=== PATIENT | male | born 1930 | race Two or more races ===

== ENCOUNTER 2016-11-04 10:01 | Inpatient (IN) | payer MEDICARE, MEDICAID ==
[~2016-11-04] VITALS: Ht 172.7 cm; Wt 64.9 kg
[2016-11-04] MEDS ORDERED: Albuterol ud Inhalation HHN ONE (10:15)
[2016-11-04] MEDS ORDERED: Ipratropium 0.02% Inh Soln 2.5ml UD HHN ONE (10:15)
--- NOTE | 2016-11-04 10:19 | Emergency Room Report ---
History of Present Illness General Chief Complaint: Dyspnea/Respdistress Source: Medical Record, EMS Present Illness HPI Patient transferred from half-way, [facility], no reported hypoxia, shortness of breath,. The patient's primary doctor is Dr. elroy martinez. He was admitted to [facility] on October 23 this year with a diagnosis of pneumonia , CK D. stage III, chronic respiratory failure requiring oxygen, pulmonary fibrosis, dementia, descending aortic aneurysm, cardiomegaly. The patient requires oxygen, he was transferred on a nonrebreather. He sat slow in the ER initially without oxygen in the middle 80s on 4 L nasal cannula he is saturating at 100%. Per the paperwork the patient is a full code. The patient has dementia and does not answer questions appropriately nor is there any possibility of review systems. According to orders that were sent with [facility]. According to the paperwork, the patient is on a cholesterol medication a thyroid medication as well as dementia medication and amoxicillin and is anthramycin. Both of which have been completed as a course at the beginning of this month. Allergies: Coded Allergies: No Known Allergies (Unverified , 11/04/16) Patient History Limited by: medical condition - demented Past Medical History: see triage record, unable to obtain, HTN, pneumonia, dementia, renal disease Past Surgical History: unable to obtain Pertinent Family History: unable to obtain Social History: Denies: alcohol use, drug use, smoking Immunizations: UTD Reviewed Nursing Documentation: PMH: Agreed Nursing Documentation-[facility] Hx Cardiac Problems: Yes - Cardiomegally, pulmonary fibrosis History Of Psychiatric Problem: Yes - Dementia Review of Systems All Other Systems: limited - patient to demented for ROS Physical Exam Vital Signs Date Time Temp Pulse Resp B/P Pulse Ox O2 Delivery O2 Flow Rate FiO2 11/04/16 09:54 94 18 110/67 98 Non-Rebreather 10.0 Sp02 EP Interpretation: reviewed, abnormal - hypoxia without o2 supplementation General Appearance: alert, moderate distress, cachetic Head: atraumatic ENT: normal pharynx, dry mucus membranes Neck: full range of motion, supple, supple/symm/no masses Respiratory: decreased breath sounds, accessory muscle use, other - distant breath sounds Cardiovascular #1: regular rate, rhythm, no edema, normal capillary refill Gastrointestinal: non tender, soft, no mass Rectal: deferred Genitourinary: no CVA tenderness Neurologic: alert, responsive Medical Decision Making Diagnostic Impression: Primary Impression: Respiratory distress Additional Impressions: Dyspnea Acute CHF (congestive heart failure) Pneumonia Hypoxia ER Course Patient brought for evaluation of respiratory change, at baseline this is a very poor historian as well as has poor lung function, recent pneumonia, interstitial lung disease, possible CHF. Initiating oxygen therapy, monitor, chest x-ray as well as antibiotics in the ER. Overall is possible this patient is near his baseline is just oxygen dependent as often patient's have issues of oxygen delivery and nursing facilities. We'll run-through basic labs, gas, findings and determine his full need for therapy. Patient remains stable on 4 L nasal cannula, and blood work does demonstrate elevated BNP and chest x-ray suggestive of CHF exacerbation. He is still very tenuous. I believe that the patient would benefit from IV diuresis as well as treatment with antibiotics as infection cannot be ruled out on chest x-ray. I spoke with Dr. Cornelius who agrees with admission. I also spoke with the family who understand our plan of care. According to the family they were unaware of long or heart problems prior to the patient's initial mission and outside hospital last month. IV diuretics as well as IV anabiotic some were initiated in the ER. Laboratory Tests Test 11/04/16 10:00 11/04/16 10:55 White Blood Count 9.7 K/UL (4.8-10.8) Red Blood Count 4.46 M/UL (4.70-6.10) L Hemoglobin 14.3 G/DL (14.2-18.0) Hematocrit 41.5 % (42.0-52.0) L Mean Corpuscular Volume 93 FL (80-99) Mean Corpuscular Hemoglobin 32.1 PG (27.0-31.0) H Mean Corpuscular Hemoglobin Concent 34.5 G/DL (32.0-36.0) Red Cell Distribution Width 13.1 % (11.6-14.8) Platelet Count 415 K/UL (150-450) Mean Platelet Volume 7.5 FL (6.5-10.1) Neutrophils (%) (Auto) 55.3 % (45.0-75.0) Lymphocytes (%) (Auto) 22.6 % (20.0-45.0) Monocytes (%) (Auto) 9.8 % (1.0-10.0) Eosinophils (%) (Auto) 9.7 % (0.0-3.0) H Basophils (%) (Auto) 2.6 % (0.0-2.0) H Prothrombin Time 12.6 SEC (9.30-11.50) H Prothromb Time International Ratio 1.2 (0.9-1.1) H Activated Partial Thromboplast Time 26 SEC (23-33) Sodium Level 136 mEQ/L (135-145) Potassium Level 4.5 mEQ/L (3.4-4.9) Chloride Level 94 mEQ/L (98-107) L Carbon Dioxide Level 28 mEQ/L (20-30) Anion Gap 14 (5-15) Blood Urea Nitrogen 14 mg/dL (7-23) Creatinine 1.2 mg/dL (0.7-1.2) Estimat Glomerular Filtration Rate mL/min (>60) Glucose Level 108 mg/dL (74-106) H Lactic Acid Level 1.70 mmol/L (0.66-2.22) Calcium Level 9.4 mg/dL (8.6-10.2) Total Bilirubin 0.6 mg/dL (0.0-1.2) Direct Bilirubin 0.2 mg/dL (0.1-0.3) Aspartate Amino Transf (AST/SGOT) 57 U/L (5-40) H Alanine Aminotransferase (ALT/SGPT) 52 U/L (3-41) H Alkaline Phosphatase 148 U/L (40-129) H Troponin I < 0.30 ng/mL (<=0.30) Pro-B-Type Natriuretic Peptide 665 pg/mL (0-450) H Total Protein 7.6 g/dL (6.6-8.7) Albumin 3.3 g/dL (3.5-5.2) L Globulin 4.3 g/dL Albumin/Globulin Ratio 0.7 (1.0-2.7) L Urine Color Yellow Urine Appearance Clear Urine pH 5 (4.5-8.0) Urine Specific [place] 1.020 (1.005-1.035) Urine Protein 2+ (NEGATIVE) H Urine Glucose (UA) Negative (NEGATIVE) Urine Ketones 1+ (NEGATIVE) H Urine Occult Blood 1+ (NEGATIVE) H Urine Nitrite Negative (NEGATIVE) Urine Bilirubin Negative (NEGATIVE) Urine Urobilinogen Normal MG/DL (0.0-1.0) Urine Leukocyte Esterase Negative (NEGATIVE) Urine RBC 0-2 /HPF (0 - 0) H Urine WBC 0-2 /HPF (0 - 0) Urine Squamous Epithelial Cells Occasional /LPF Urine Bacteria Few /HPF (NONE) Urine Mucus Few /LPF (NONE/OCC) H EKG Diagnostic Results EKG Time: 10:30 EP Interpretation: rate 84 Rate: normal Rhythm: NSR ST Segments: no acute changes Rhythm Strip Diag. Results Rhythm Strip Time: 10:52 EP Interpretation: yes Rate: 88 Rhythm: NSR, no PVC's, no ectopy Chest X-Ray Diagnostic Results Time: 11:29 EP Interpretation: No Findings: other - limited view, suggestive heart faailure, bilateral infiltrates Reevaluation Time: 12:59 Last Vital Signs Date Time Temp Pulse Resp B/P Pulse Ox O2 Delivery O2 Flow Rate FiO2 11/04/17 09:54 94 18 110/67 98 Non-Rebreather 10.0 Status: improved Disposition: ADMITTED INPATIENT Admit Decision Time: 12:59 Condition: Serious Cain Jackman MD Nov 04, 2016 10:19
[2016-11-04 10:32] LABS: BASOPHILS % (AUTO) 2.6 % (0.0-2.0); EOSINOPHILS % (AUTO) 9.7 % (0.0-3.0); LYMPHOCYTES % (AUTO) 22.6 % (20.0-45.0); MEAN CORPUSCULAR HEMOGLOBIN 32.1 PG (27.0-31.0); MEAN CORPUSCULAR HGB CONC 34.5 G/DL (32.0-36.0); MEAN CORPUSCULAR VOLUME 93 FL (80-99); MEAN PLATELET VOLUME 7.5 FL (6.5-10.1); MONOCYTES % (AUTO) 9.8 % (1.0-10.0); NEUTROPHILS % (AUTO) 55.3 % (45.0-75.0); PLATELET COUNT 415 K/UL (150-450); RED BLOOD COUNT 4.46 M/UL (4.70-6.10); RED CELL DISTRIBUTION WIDTH 13.1 % (11.6-14.8); WHITE BLOOD COUNT 9.7 K/UL (4.8-10.8)
[2016-11-04 10:42] VITALS: BP 116/73
[2016-11-04 10:48] LABS: INR 1.2 (0.9-1.1); PROTHROMBIN TIME 12.6 SEC (9.30-11.50)
[2016-11-04 10:49] LABS: ALANINE AMINOTRANSFERASE 52 U/L (3-41); ALBUMIN/GLOBULIN RATIO 0.7 (1.0-2.7); ANION GAP 14 (5-15); ASPARTATE AMINO TRANSFERASE 57 U/L (5-40); BILIRUBIN,DIRECT 0.2 mg/dL (0.1-0.3); CALCIUM 9.4 mg/dL (8.6-10.2); CARBON DIOXIDE 28 mEQ/L (20-30); CHLORIDE 94 mEQ/L (98-107); CREATININE 1.2 mg/dL (0.7-1.2); HEMOLYSIS 3; POTASSIUM 4.5 mEQ/L (3.4-4.9); SODIUM 136 mEQ/L (135-145); TOTAL PROTEIN 7.6 g/dL (6.6-8.7)
[2016-11-04 10:50] LABS: TROPONIN I < 0.30 ng/mL (<=0.30)
[2016-11-04 11:04] LABS: APPEARANCE,URINE CLEAR; KETONES,URINE 1+ (NEGATIVE); LEUKOCYTE ESTERASE ,URINE NEGATIVE (NEGATIVE); NITRITE,URINE NEGATIVE (NEGATIVE); PH,URINE 5 (4.5-8.0); PROTEIN,URINE 2+ (NEGATIVE); UROBILINOGEN,URINE NORMAL MG/DL (0.0-1.0)
[2016-11-04 11:20] LABS: BACTERIA,URINE FEW /HPF; MUCUS,URINE FEW /LPF (NONE/OCC); RBC,URINE 0-2 /HPF (0 - 0); SQUAMOUS EPITHELIAL CELL,UR OCCASIONAL /LPF (NONE/OCC); WBC,URINE 0-2 /HPF (0 - 0)
--- NOTE | 2016-11-04 11:34 | Diagnostic Imaging Report ---
Indications: Shortness of breath, infection Technique: Portable AP chest Findings: Comparison: None Suboptimal inspiration limits evaluation. Cardiac silhouette obscured. Diffuse bilateral interstitial infiltrates are present. This obscures pulmonary vasculature. Linear densities are suggested in both lung bases. No definite pleural abnormality. Aortic arch calcified. IMPRESSION: Limited exam demonstrating findings most suggestive of congestive heart failure Suggestion of superimposed subsegmental atelectasis both lung bases Aortosclerosis
[2016-11-04] MEDS ORDERED: NAMENDA5 MG ORAL (11:38)
[2016-11-04] MEDS ORDERED: LEVOTHYROXINE88 MCG ORAL (11:38)
[2016-11-04] MEDS ORDERED: SIMVASTATIN5 MG ORAL (11:38)
[2016-11-04 14:37] VITALS: BP 104/56
[2016-11-04 16:16] VITALS: BP 145/85
--- NOTE | 2016-11-04 17:09 | History and Physical ---
History of Present Illness General Date patient seen: Nov 04, 2016 Reason for Hospitalization: Dyspnea/Respdistress Present Illness HPI 86 year old male with hx of recent pneumonia, CK D. stage III, chronic respiratory failure requiring oxygen, pulmonary fibrosis, dementia, descending aortic aneurysm, cardiomegaly, was transferred on a nonrebreather with CC of Dyspnea and persistent cough and desaturation. There is no report of fever. Pt resides in a [facility] for a few weeks after his discharge from [facility]. Allergies: Coded Allergies: No Known Allergies (Unverified , 11/04/16) Medication History Scheduled Levothyroxine Sodium* (Levothyroxine Sodium*), 88 MCG ORAL DAILY, (Reported) Memantine Hcl* (Namenda*), 5 MG ORAL DAILY, (Reported) Simvastatin (Zocor), 5 MG ORAL BEDTIME, (Reported) Patient History Healthcare decision maker Resuscitation status Advanced Directive on File Past Medical/Surgical History Past Medical/Surgical History: (1) COPD (chronic obstructive pulmonary disease) (2) Advanced dementia (3) Aortic aneurysm Review of Systems Constitutional: Reports: weakness Respiratory: Reports: shortness of breath, sputum Physical Exam General Appearance: WD/WN Lines, tubes and drains: peripheral HEENT: normocephalic, anicteric Neck: non-tender, normal alignment Respiratory/Chest: chest wall non-tender, lungs clear Cardiovascular/Chest: normal rate Abdomen: normal bowel sounds Genitourinary/Rectal: normal genital exam Extremities: normal range of motion Last 24 Hour Vital Signs Date Time Temp Pulse Resp B/P Pulse Ox O2 Delivery O2 Flow Rate FiO2 11/04/16 16:16 98.0 94 18 145/85 Nasal Cannula 2.0 82 11/04/16 15:32 98.2 98 25 104/56 98 Nasal Cannula 2.0 28 11/04/16 14:37 98.2 98 25 104/56 98 Nasal Cannula 2.0 11/04/16 10:42 88 28 Nasal Cannula 2.0 11/04/16 10:42 98 28 116/73 100 Nasal Cannula 2.0 28 11/04/16 10:31 88 28 100 Nasal Cannula 2.0 28 11/04/16 10:20 79 27 100 Nasal Cannula 2.0 28 11/04/16 10:20 28 11/04/16 10:20 79 27 Nasal Cannula 2.0 28 11/04/16 09:54 94 18 110/67 98 Non-Rebreather 10.0 Laboratory Tests Test 11/04/16 10:00 11/04/16 10:55 White Blood Count 9.7 K/UL (4.8-10.8) Red Blood Count 4.46 M/UL (4.70-6.10) L Hemoglobin 14.3 G/DL (14.2-18.0) Hematocrit 41.5 % (42.0-52.0) L Mean Corpuscular Volume 93 FL (80-99) Mean Corpuscular Hemoglobin 32.1 PG (27.0-31.0) H Mean Corpuscular Hemoglobin Concent 34.5 G/DL (32.0-36.0) Red Cell Distribution Width 13.1 % (11.6-14.8) Platelet Count 415 K/UL (150-450) Mean Platelet Volume 7.5 FL (6.5-10.1) Neutrophils (%) (Auto) 55.3 % (45.0-75.0) Lymphocytes (%) (Auto) 22.6 % (20.0-45.0) Monocytes (%) (Auto) 9.8 % (1.0-10.0) Eosinophils (%) (Auto) 9.7 % (0.0-3.0) H Basophils (%) (Auto) 2.6 % (0.0-2.0) H Prothrombin Time 12.6 SEC (9.30-11.50) H Prothromb Time International Ratio 1.2 (0.9-1.1) H Activated Partial Thromboplast Time 26 SEC (23-33) Sodium Level 136 mEQ/L (135-145) Potassium Level 4.5 mEQ/L (3.4-4.9) Chloride Level 94 mEQ/L (98-107) L Carbon Dioxide Level 28 mEQ/L (20-30) Anion Gap 14 (5-15) Blood Urea Nitrogen 14 mg/dL (7-23) Creatinine 1.2 mg/dL (0.7-1.2) Estimat Glomerular Filtration Rate mL/min (>60) Glucose Level 108 mg/dL (74-106) H Lactic Acid Level 1.70 mmol/L (0.66-2.22) Calcium Level 9.4 mg/dL (8.6-10.2) Total Bilirubin 0.6 mg/dL (0.0-1.2) Direct Bilirubin 0.2 mg/dL (0.1-0.3) Aspartate Amino Transf (AST/SGOT) 57 U/L (5-40) H Alanine Aminotransferase (ALT/SGPT) 52 U/L (3-41) H Alkaline Phosphatase 148 U/L (40-129) H Troponin I < 0.30 ng/mL (<=0.30) Pro-B-Type Natriuretic Peptide 665 pg/mL (0-450) H Total Protein 7.6 g/dL (6.6-8.7) Albumin 3.3 g/dL (3.5-5.2) L Globulin 4.3 g/dL Albumin/Globulin Ratio 0.7 (1.0-2.7) L Urine Color Yellow Urine Appearance Clear Urine pH 5 (4.5-8.0) Urine Specific [place] 1.020 (1.005-1.035) Urine Protein 2+ (NEGATIVE) H Urine Glucose (UA) Negative (NEGATIVE) Urine Ketones 1+ (NEGATIVE) H Urine Occult Blood 1+ (NEGATIVE) H Urine Nitrite Negative (NEGATIVE) Urine Bilirubin Negative (NEGATIVE) Urine Urobilinogen Normal MG/DL (0.0-1.0) Urine Leukocyte Esterase Negative (NEGATIVE) Urine RBC 0-2 /HPF (0 - 0) H Urine WBC 0-2 /HPF (0 - 0) Urine Squamous Epithelial Cells Occasional /LPF Urine Bacteria Few /HPF (NONE) Urine Mucus Few /LPF (NONE/OCC) H Height (Feet): 5 Height (Inches): 8.00 Weight (Pounds): 160 Medications Current Medications Medications (Trade) Dose Ordered Sig/Jackie Route PRN Reason Start Time Stop Time Status Last Admin Dose Admin Acetaminophen (Tylenol) 650 mg Q4H PRN ORAL Fever 11/04/16 17:15 12/04/16 17:14 UNV Albuterol/ Ipratropium 3 ml 3 ml EVERY 4 HOURS PRN HHN Shortness of Breath 11/04/16 17:15 11/09/16 17:14 UNV Dextrose (Dextrose 50%) STAT PRN IV Hypoglycemia 11/04/16 17:15 12/04/16 17:14 UNV Furosemide (Lasix) 40 mg EVERY 8 HOURS IV 11/04/16 22:00 12/04/16 21:59 UNV Heparin Sodium (Porcine) (Heparin 5000 units/ml) 5,000 units EVERY 12 HOURS SUBQ 11/04/16 21:00 12/04/16 20:59 UNV Levofloxacin (Levaquin) 100 ml @ 100 mls/hr Q24H IVPB 11/04/16 17:15 11/11/16 17:14 UNV Levothyroxine Sodium (Synthroid) 88 mcg DAILY ORAL 11/05/16 09:00 12/05/16 08:59 UNV Memantine (Namenda) 5 mg DAILY ORAL 11/05/16 09:00 12/05/16 08:59 UNV Ondansetron HCl (Zofran) 4 mg Q6H PRN IVP Nausea & Vomiting 11/04/16 17:15 12/04/16 17:14 UNV Ondansetron HCl (Zofran) 4 mg Q6H PRN IVP Nausea & Vomiting 11/04/16 17:15 12/04/16 17:14 UNV Polyethylene Glycol (Miralax) 17 gm DAILYPRN PRN ORAL Constipation 11/04/16 17:15 12/04/16 17:14 UNV Promethazine HCl/ Codeine (Phenergan with Codeine) 5 ml Q4H PRN ORAL For Cough 11/04/16 17:15 12/04/16 17:14 UNV Temazepam (Restoril) 15 mg HSPRN PRN ORAL Insomnia 11/04/16 17:15 11/11/16 17:14 UNV Assessment/Plan Problem List: (1) Pneumonia ICD Codes: J18.9 - Pneumonia, unspecified organism SNOMED: 992169075, 49143805 (2) Acute CHF (congestive heart failure) ICD Codes: I50.9 - Heart failure, unspecified SNOMED: 31227392, 98479160 (3) Respiratory distress ICD Codes: R06.00 - Dyspnea, unspecified SNOMED: 766568544 (4) Hypoxia ICD Codes: R09.02 - Hypoxemia SNOMED: 118553855, 52374956 (5) Advanced dementia ICD Codes: F03.90 - Unspecified dementia without behavioral disturbance SNOMED: 92472492 (6) Aortic aneurysm ICD Codes: I71.9 - Aortic aneurysm of unspecified site, without rupture SNOMED: 55726242 (7) COPD (chronic obstructive pulmonary disease) ICD Codes: J44.9 - Chronic obstructive pulmonary disease, unspecified SNOMED: 33318280 Assessment/Plan diuretics respiratory treatment echo cardio evaluation check sputum IV antibiotics VERO COLLADO Nov 04, 2016 17:09
[2016-11-04] MEDS ORDERED: Miralax 17gm pkt ORAL PRN (17:15)
[2016-11-04] MEDS ORDERED: Promethazine/Codeine 5ml UD ORAL PRN (17:15)
[2016-11-04] MEDS ORDERED: DuoNeb 0.5-3(2.5)mg/3ml neb HHN PRN (17:15)
--- NOTE | 2016-11-04 17:34 | Consultation ---
Consult Note Consult Note ID CONSULT: Dict# [id number] Assessment/Plan ASSESSMENT: 86 y/o male with: // Acute on chronic respiratory failure r/o HCAP, CHF - SCx pending - CXR: most suggestive of congestive heart failure Suggestion of superimposed subsegmental BLL atelectasis - elevated BNP - h/o O2-dependent pulmonary, fibrosis // Elevated LFTs r/o hepatobiliary disease // Afebrile without leukocytosis // CKD3 // Dementia // NKDA // Full Code PLAN: - continue empiric levaquin d# 1 for now - check influenza, legionella UAg, hepatitis panel, abdo US - f/u cultures - monitor CBC, temperatures - monitor BMP - monitor CXR - diuresis - respiratory support Thanks! Will follow JOEL MUARO Nov 04, 2016 17:34
[2016-11-04 20:00] VITALS: BP 114/66
--- NOTE | 2016-11-04 20:32 | Cardiology Progress Note ---
Assessment/Plan Assessment/Plan ild / pulm fibosis chronic resp fialure cri dementia hypothyroid echo venosudupelx ? aspiration doubt chf [id number] Subjective Subjective Objective Last 24 Hour Vital Signs Date Time Temp Pulse Resp B/P Pulse Ox O2 Delivery O2 Flow Rate FiO2 11/04/16 16:16 98.0 94 18 145/85 Nasal Cannula 2.0 82 11/04/16 15:32 98.2 98 25 104/56 98 Nasal Cannula 2.0 28 11/04/16 14:37 98.2 98 25 104/56 98 Nasal Cannula 2.0 11/04/16 10:42 88 28 Nasal Cannula 2.0 11/04/16 10:42 98 28 116/73 100 Nasal Cannula 2.0 28 11/04/16 10:31 88 28 100 Nasal Cannula 2.0 28 11/04/16 10:20 79 27 100 Nasal Cannula 2.0 28 11/04/16 10:20 28 11/04/16 10:20 79 27 Nasal Cannula 2.0 28 11/04/16 09:54 94 18 110/67 98 Non-Rebreather 10.0 Laboratory Tests Test 11/04/16 10:00 11/04/16 10:55 White Blood Count 9.7 K/UL (4.8-10.8) Red Blood Count 4.46 M/UL (4.70-6.10) L Hemoglobin 14.3 G/DL (14.2-18.0) Hematocrit 41.5 % (42.0-52.0) L Mean Corpuscular Volume 93 FL (80-99) Mean Corpuscular Hemoglobin 32.1 PG (27.0-31.0) H Mean Corpuscular Hemoglobin Concent 34.5 G/DL (32.0-36.0) Red Cell Distribution Width 13.1 % (11.6-14.8) Platelet Count 415 K/UL (150-450) Mean Platelet Volume 7.5 FL (6.5-10.1) Neutrophils (%) (Auto) 55.3 % (45.0-75.0) Lymphocytes (%) (Auto) 22.6 % (20.0-45.0) Monocytes (%) (Auto) 9.8 % (1.0-10.0) Eosinophils (%) (Auto) 9.7 % (0.0-3.0) H Basophils (%) (Auto) 2.6 % (0.0-2.0) H Prothrombin Time 12.6 SEC (9.30-11.50) H Prothromb Time International Ratio 1.2 (0.9-1.1) H Activated Partial Thromboplast Time 26 SEC (23-33) Sodium Level 136 mEQ/L (135-145) Potassium Level 4.5 mEQ/L (3.4-4.9) Chloride Level 94 mEQ/L (98-107) L Carbon Dioxide Level 28 mEQ/L (20-30) Anion Gap 14 (5-15) Blood Urea Nitrogen 14 mg/dL (7-23) Creatinine 1.2 mg/dL (0.7-1.2) Estimat Glomerular Filtration Rate mL/min (>60) Glucose Level 108 mg/dL (74-106) H Lactic Acid Level 1.70 mmol/L (0.66-2.22) Calcium Level 9.4 mg/dL (8.6-10.2) Total Bilirubin 0.6 mg/dL (0.0-1.2) Direct Bilirubin 0.2 mg/dL (0.1-0.3) Aspartate Amino Transf (AST/SGOT) 57 U/L (5-40) H Alanine Aminotransferase (ALT/SGPT) 52 U/L (3-41) H Alkaline Phosphatase 148 U/L (40-129) H Troponin I < 0.30 ng/mL (<=0.30) Pro-B-Type Natriuretic Peptide 665 pg/mL (0-450) H Total Protein 7.6 g/dL (6.6-8.7) Albumin 3.3 g/dL (3.5-5.2) L Globulin 4.3 g/dL Albumin/Globulin Ratio 0.7 (1.0-2.7) L Urine Color Yellow Urine Appearance Clear Urine pH 5 (4.5-8.0) Urine Specific [place] 1.020 (1.005-1.035) Urine Protein 2+ (NEGATIVE) H Urine Glucose (UA) Negative (NEGATIVE) Urine Ketones 1+ (NEGATIVE) H Urine Occult Blood 1+ (NEGATIVE) H Urine Nitrite Negative (NEGATIVE) Urine Bilirubin Negative (NEGATIVE) Urine Urobilinogen Normal MG/DL (0.0-1.0) Urine Leukocyte Esterase Negative (NEGATIVE) Urine RBC 0-2 /HPF (0 - 0) H Urine WBC 0-2 /HPF (0 - 0) Urine Squamous Epithelial Cells Occasional /LPF Urine Bacteria Few /HPF (NONE) Urine Mucus Few /LPF (NONE/OCC) H ELIEZER GOLD Nov 04, 2016 20:32
[2016-11-04] MEDS: Heparin 5000 units/ml inj SUBQ SCH (21:08)
[2016-11-04 21:46] LABS: TROPONIN I < 0.30 ng/mL (<=0.30)
--- NOTE | 2016-11-04 21:58 | Consultation ---
DATE OF CONSULTATION: 11/04/2016 INFECTIOUS DISEASE CONSULTATION: CONSULTING PHYSICIAN: Raj Stuart M.D. REQUESTING PHYSICIAN: Edith Cornelius M.D. REASON FOR CONSULTATION: Pneumonia. HISTORY OF PRESENT ILLNESS: This is an 86-year-old male, assisted resident with a history of oxygen-dependent pulmonary fibrosis, admitted on 11/04/2016 with shortness of breath. Chest x-ray shows probable CHF and bilateral lower lobe atelectasis. He is afebrile without leukocytosis. Cultures are pending. He has been started on empiric Levaquin. ID now is consulted to assist in management. PAST MEDICAL HISTORY: 1. Chronic kidney disease, stage 3. 2. Oxygen-dependent pulmonary fibrosis. 3. Dementia. 4. Aortic aneurysm. PAST SURGICAL HISTORY: Unknown. ALLERGIES: No known drug allergies. MEDICATIONS: 1. Levaquin day #1. 2. Synthroid. 3. Namenda. 4. Lasix. 5. Subcutaneous heparin. FAMILY HISTORY: Unknown. SOCIAL HISTORY: The patient is resident of a assisted. No active tobacco, alcohol, or illicit drug abuse. REVIEW OF SYSTEMS: Unable to obtain. PHYSICAL EXAMINATION: VITAL SIGNS: Maximum temperature is 98.2 degrees, blood pressure 145/85, heart rate in the 90s, respiratory rate 20, and saturating 98% on two liters nasal cannula. GENERAL: No apparent distress. Nontoxic appearing. CARDIOVASCULAR: Regular rate and rhythm. No murmurs. PULMONARY: Clear to auscultation bilaterally. ABDOMEN: Bowel sounds are present. Soft, nondistended, and nontender. EXTREMITIES: No edema. LABORATORY DATA: White blood cell count is 9.7, hemoglobin 14.3, and platelets 415,000. Sodium is 136, potassium 4.5, chloride 94, bicarbonate 28, BUN 14, and creatinine 1.2. Lactic acid is 1.7. AST is 57, ALT 52, and alkaline phosphatase 148. Total bilirubin is 0.6. Albumin is 3.3. Troponin is negative x1. Urinalysis is negative. BNP is 665. MICROBIOLOGICAL DATA: 1. From 11/04/2016, blood culture is pending. 2. From 11/04/2016, sputum culture is pending. IMAGING DATA: 1. From 11/04/2016, chest x-ray is consistent with CHF and bilateral lower lobe atelectasis. 2. From 11/04/2016, bilateral lower extremity Doppler ultrasound is pending. ASSESSMENT: 1. Acute on chronic respiratory failure, rule out healthcare-associated pneumonia and CHF. Sputum culture is pending. Chest x-ray is most suggestive of congestive heart failure and bilateral lower lobe atelectasis. BNP is elevated and he has baseline oxygen-dependent pulmonary fibrosis. 2. Elevated liver function tests, rule out hepatobiliary disease. 3. Afebrile without leukocytosis. 4. Chronic kidney disease, stage 3. 5. Dementia. 6. No known drug allergies. 7. Full Code. PLAN: 1. Continue empiric Levaquin day #1 for now. 2. Check influenza screen, Legionella urine antigen, hepatitis panel, and abdominal ultrasound. 3. Follow up cultures. 4. Monitor CBC and temperatures. 5. Monitor BMP. 6. Monitor chest x-ray. 7. Diuresis. 8. Respiratory support. Thank you. We will follow. Raj Stuart M.D. DR: Giuliana JOB#: [id number] CC: Cory Caraballo M.D. ; Fax#: [phone] Alborzi, M.D; Fax#: [phone]
[2016-11-05 00:19] VITALS: BP 93/72
--- NOTE | 2016-11-05 01:48 | Consultation ---
DATE OF CONSULTATION: 11/04/2016 CARDIOLOGY CONSULTATION CONSULTING PHYSICIAN: Tyshawn Coello M.D. REFERRING PHYSICIAN: Edith Cornelius M.D. REASON FOR REFERRAL: Shortness of breath. HISTORY OF PRESENT ILLNESS: This is an 86-year-old gentleman with history of multiple medical problems, who presents to the hospital because of increasing shortness of breath. He is a [facility]. He was recently admitted to that facility with diagnosis of pneumonia. Apparently, he has oxygen four liters by nasal cannula, but he is on nonbreather face mask. When he was brought to the emergency room, he indicated that he was not able to answer questions appropriately any possibility of review of the systems. The patient denies any chest pain at the present time. He does apparently have some shortness of breath at times. He gets attacks after the shortness of breath. PAST MEDICAL HISTORY: Positive for benign prostatic hypertrophy, hyperlipidemia, hypothyroidism, and hypertension. Apparently, he was hospitalized at [facility] from 09/17 through 09/22 because of shortness of breath for three months with significant amount of weight loss and diagnosed with pneumonia, interstitial lung disease, dementia, sepsis, kidney injury, and has had aortic aneurysm. It was apparently reported 4 to 4.5 cm ascending. There is pulmonary fibrosis by CT scan and chronic kidney disease with GFR of 46 on 10/20/2016, chronic respiratory failure, pneumonia, and cardiomegaly on a chest x-ray. MEDICATIONS: His medications previously were amoxicillin, Zithromax, Namenda, Synthroid, simvastatin, and oxygen on 2 liters. ALLERGIES: The patient is not known to be allergic to any medications. He if desired for code status. REVIEW OF SYSTEMS: Unable to obtain. PHYSICAL EXAMINATION: GENERAL: Shows an elderly gentleman, in no apparent respiratory distress at this time. NECK: Supple. No jugular venous distention. LUNGS: With some crackles noted at the bases. CARDIAC: Regular rate and rhythm. No heaves or thrills noted. ABDOMEN: Soft and nontender. Positive bowel sounds. EXTREMITIES: There is no clubbing, cyanosis, or edema. NEUROLOGIC: He is awake, alert, and responsive. LABORATORY AND DIAGNOSTIC DATA: White count of 9.7, hemoglobin 14.2, and platelet count of 415,000. Sodium 136, potassium 4.5, chloride 94, bicarbonate 24, BUN 14, creatinine 1.2, and glucose of 108. Lactic acid is 1.7. AST 57, ALT 52, and alkaline phosphatase 140. Troponin less than 0.3. ProBNP is only 665. Coags, INR of 1.2 and PTT of 26. Urinalysis is fairly unremarkable. Chest x-ray, read by the radiologist showed limited exam, suboptimal inspiration, cardiac silhouette, enlarged diffuse bilateral interstitial infiltrative pattern, suggestive of both lungs. No pleural abnormalities were noted. The patient's EKG shows normal sinus rhythm, normal leftward axis, and some nonspecific T-wave changes are noted on the EKG. ASSESSMENT AND PLAN: 1. Respiratory insufficiency. 2. Interstitial lung disease. 3. Cardiomegaly. 4. Ascending aortic aneurysm. 5. Chronic kidney disease. 6. Chronic respiratory failure, on home oxygen. 7. Dementia. 8. Hypothyroidism. 9. Hyperlipidemia. Dr. Cornelius, this patient was seen in cardiac consultation. I doubt this is evidence of congestive heart failure. On examination, the most of the findings appeared to be chronic in nature. The possibility of a superimposed aspiration cannot be excluded and needed to be evaluated by yourself. A venous duplex of the lower extremity will be ordered. An echocardiogram will be ordered to evaluate the LV systolic function. Further recommendations will be based on the results of the above. Tyshawn Coello M.D. DR: FRIDA JOB#: [id number] CC:
[2016-11-05 04:00] VITALS: BP 112/71
[2016-11-05 08:20] VITALS: BP 123/82
[2016-11-05 08:20] LABS: BASOPHILS % (AUTO) 2.4 % (0.0-2.0); LYMPHOCYTES % (AUTO) 29.9 % (20.0-45.0); MEAN CORPUSCULAR HEMOGLOBIN 30.6 PG (27.0-31.0); MEAN CORPUSCULAR HGB CONC 32.8 G/DL (32.0-36.0); MEAN CORPUSCULAR VOLUME 93 FL (80-99); MEAN PLATELET VOLUME 6.8 FL (6.5-10.1); MONOCYTES % (AUTO) 10.4 % (1.0-10.0); NEUTROPHILS % (AUTO) 47.3 % (45.0-75.0); PLATELET COUNT 391 K/UL (150-450); RED BLOOD COUNT 5.06 M/UL (4.70-6.10); RED CELL DISTRIBUTION WIDTH 13.2 % (11.6-14.8); WHITE BLOOD COUNT 10.4 K/UL (4.8-10.8)
[2016-11-05] MEDS: Memantine 10mg tab ORAL SCH (08:23)
[2016-11-05] MEDS: Heparin 5000 units/ml inj SUBQ SCH ×2 (08:24→22:34)
[2016-11-05 08:29] LABS: TROPONIN I < 0.30 ng/mL (<=0.30)
[2016-11-05 08:32] LABS: ANION GAP 20 (5-15); CALCIUM 9.5 mg/dL (8.6-10.2); CARBON DIOXIDE 24 mEQ/L (20-30); CHLORIDE 92 mEQ/L (98-107); CREATININE 1.5 mg/dL (0.7-1.2); HEMOLYSIS 10; PHOSPHORUS 3.9 mg/dL (2.5-4.8); POTASSIUM 3.8 mEQ/L (3.4-4.9); SODIUM 136 mEQ/L (135-145)
--- NOTE | 2016-11-05 12:29 | Diagnostic Imaging Report ---
Indication: DYSPNEA Technique: One view of the chest Comparison: 11/04/2016 Findings: Bilateral interstitial disease, right greater than left, persists, appears unchanged. Heart size is normal. Aorta is tortuous and calcified. Upper mediastinum is unremarkable Impression: Bilateral extensive interstitial disease, right greater than left suspect on the basis of congestive heart failure. However, marked similarity to the prior exam raises possibility that this could also be due to chronic interstitial fibrotic change. Correlate with clinical findings
[2016-11-05 12:41] VITALS: BP 96/50
--- NOTE | 2016-11-05 15:48 | Pulmonology Progress Note ---
Assessment/Plan Problems: (1) Pneumonia (2) Acute CHF (congestive heart failure) (3) Respiratory distress (4) Hypoxia (5) Advanced dementia (6) Aortic aneurysm (7) COPD (chronic obstructive pulmonary disease) Assessment/Plan add zosyn hold lasix ct chest check sputum Subjective ROS Limited/Unobtainable: No Interval Events: producing a lot phlegmn Constitutional: Reports: no symptoms HEENT: Repors: no symptoms Respiratory: Reports: no symptoms Cardiovascular: Reports: no symptoms Allergies: Coded Allergies: No Known Allergies (Unverified , 11/04/16) Objective Last 24 Hour Vital Signs Date Time Temp Pulse Resp B/P Pulse Ox O2 Delivery O2 Flow Rate FiO2 11/05/16 14:56 76 27 100 Nasal Cannula 2.0 28 11/05/16 14:56 89 28 100 Nasal Cannula 2.0 28 11/05/16 14:55 28 11/05/16 12:41 96.9 86 20 96/50 97 Nasal Cannula 2.0 11/05/16 12:00 86 11/05/16 08:20 97.0 95 20 123/82 95 Nasal Cannula 2.0 11/05/16 08:00 94 11/05/16 07:31 94 Nasal Cannula 2.0 28 11/05/16 07:31 Nasal Cannula 2.0 28 11/05/16 07:31 95 21 Nasal Cannula 2.0 11/05/16 04:00 97.3 85 20 112/71 98 Room Air 11/05/16 04:00 81 11/05/16 00:19 97.0 90 20 93/72 95 Nasal Cannula 2.0 11/05/16 00:00 88 11/04/16 20:00 107 11/04/16 20:00 96.0 90 18 114/66 Nasal Cannula 2.0 94 11/04/16 19:31 98.0 11/04/16 19:00 Nasal Cannula 2.0 28 11/04/16 19:00 93 Nasal Cannula 2.0 28 11/04/16 19:00 93 25 Nasal Cannula 2.0 11/04/16 16:16 98.0 94 18 145/85 Nasal Cannula 2.0 82 11/04/16 16:00 101 Intake and Output 11/04/16 11/05/16 19:00 07:00 # Voids 1 # Bowel Movements 2 General Appearance: WD/WN, no acute distress HEENT: normocephalic Respiratory/Chest: chest wall non-tender, lungs clear Cardiovascular: normal peripheral pulses, normal rate Abdomen: normal bowel sounds, no organomegaly Genitourinary: normal external genitalia Extremities: no clubbing Skin: no ulcers Microbiology Date/Time Source Procedure Growth Status 11/05/16 11:30 Nasal Nares Influenza Types A,B Antigen (YANELI) - Final Complete 11/04/16 00:00 Sputum Gram Stain - Final Resulted 11/04/16 00:00 Sputum Sputum Culture Pending Resulted Laboratory Tests 11/04/16 21:20: Troponin I < 0.30 11/05/16 07:00: Troponin I < 0.30, White Blood Count 10.4, Red Blood Count 5.06, Hemoglobin 15.5 , Hematocrit 47.2, Mean Corpuscular Volume 93, Mean Corpuscular Hemoglobin 30.6 , Mean Corpuscular Hemoglobin Concent 32.8, Red Cell Distribution Width 13.2, Platelet Count 391, Mean Platelet Volume 6.8, Neutrophils (%) (Auto) 47.3, Lymphocytes (%) (Auto) 29.9, Monocytes (%) (Auto) 10.4H, Eosinophils (%) (Auto) 10.0H, Basophils (%) (Auto) 2.4H, Sodium Level 136, Potassium Level 3.8, Chloride Level 92L, Carbon Dioxide Level 24, Anion Gap 20H, Blood Urea Nitrogen 20, Creatinine 1.5H, Estimat Glomerular Filtration Rate , Glucose Level 113H, Calcium Level 9.5, Phosphorus Level 3.9, Albumin 3.3L 11/05/16 10:20: Hepatitis A IgM Antibody [Pending], Hepatitis B Surface Antigen [Pending], Hepatitis B Core IgM Antibody [Pending], Hepatitis C Antibody [Pending] 11/05/16 14:00: Urine Legionella Antigen [Pending] Current Medications Medications (Trade) Dose Ordered Sig/Jackie Route PRN Reason Start Time Stop Time Status Last Admin Dose Admin Acetaminophen (Tylenol) 650 mg Q4H PRN ORAL Fever 11/04/16 17:15 12/04/16 17:14 11/04/16 18:32 Albuterol/ Ipratropium 3 ml 3 ml Q4H PRN HHN Shortness of Breath 11/04/16 17:15 11/09/16 17:14 11/05/16 14:55 Dextrose (Dextrose 50%) STAT PRN IV Hypoglycemia 11/04/16 17:15 12/04/16 17:14 Furosemide (Lasix) 40 mg EVERY 8 HOURS IV 11/04/16 22:00 12/04/16 21:59 11/05/16 14:24 Heparin Sodium (Porcine) (Heparin 5000 units/ml) 5,000 units EVERY 12 HOURS SUBQ 11/04/16 21:00 12/04/16 20:59 11/05/16 08:24 Levofloxacin (Levaquin) 50 ml @ 50 mls/hr Q24H IVPB 11/05/16 09:00 11/11/16 08:59 11/05/16 08:22 Levothyroxine Sodium (Synthroid) 88 mcg ACBREAKFAST ORAL 11/05/16 06:30 12/05/16 06:29 11/05/16 06:26 Memantine (Namenda) 5 mg DAILY ORAL 11/05/16 09:00 12/05/16 08:59 11/05/16 08:23 Ondansetron HCl (Zofran) 4 mg Q6H PRN IVP Nausea & Vomiting 11/04/16 17:15 12/04/16 17:14 Polyethylene Glycol (Miralax) 17 gm DAILYPRN PRN ORAL Constipation 11/04/16 17:15 12/04/16 17:14 Promethazine HCl/ Codeine (Phenergan with Codeine) 5 ml Q4H PRN ORAL For Cough 11/04/16 17:15 12/04/16 17:14 Temazepam (Restoril) 15 mg HSPRN PRN ORAL Insomnia 11/04/16 17:15 11/11/16 17:14 11/04/16 21:20 VERO COLLADO Nov 05, 2016 15:48
[2016-11-05 16:00] VITALS: BP 109/86
--- NOTE | 2016-11-05 16:19 | Infectious Diseases Prog Note ---
Assessment/Plan Assessment/Plan ASSESSMENT: 86 y/o male with: // Acute on chronic respiratory failure r/o HCAP, CHF - SCx, legionella UAg pending - CT Chest: pending - CXR 11/05: Bilateral extensive interstitial disease, R>L suspect CHF, However, marked similarity to the prior exam raises possibility that this could also be due to chronic interstitial fibrotic change - elevated BNP - h/o O2-dependent pulmonary, fibrosis - negative: influenza // Elevated LFTs r/o hepatobiliary disease - hepatitis panel, US pending // Afebrile without leukocytosis // CKD3 // Dementia // NKDA // Full Code PLAN: - continue empiric levaquin d# 2, noted zosyn d# 1 added - f/u cultures, legionella UAg - f/u hepatitis panel, abdo US - f/u CT Chest - monitor CBC, temperatures - monitor BMP - monitor CXR Subjective Allergies: Coded Allergies: No Known Allergies (Unverified , 11/04/16) Subjective remains afebrile zosyn added, CT pending Objective Vital Signs Last 24 Hour Vital Signs Date Time Temp Pulse Resp B/P Pulse Ox O2 Delivery O2 Flow Rate FiO2 11/05/16 14:56 76 27 100 Nasal Cannula 2.0 28 11/05/16 14:56 89 28 100 Nasal Cannula 2.0 28 11/05/16 14:55 28 11/05/16 12:41 96.9 86 20 96/50 97 Nasal Cannula 2.0 11/05/16 12:00 86 11/05/16 08:20 97.0 95 20 123/82 95 Nasal Cannula 2.0 11/05/16 08:00 94 11/05/16 07:31 94 Nasal Cannula 2.0 28 11/05/16 07:31 Nasal Cannula 2.0 28 11/05/16 07:31 95 21 Nasal Cannula 2.0 11/05/16 04:00 97.3 85 20 112/71 98 Room Air 11/05/16 04:00 81 11/05/16 00:19 97.0 90 20 93/72 95 Nasal Cannula 2.0 11/05/16 00:00 88 11/04/16 20:00 107 11/04/16 20:00 96.0 90 18 114/66 Nasal Cannula 2.0 94 11/04/16 19:31 98.0 11/04/16 19:00 Nasal Cannula 2.0 28 11/04/16 19:00 93 Nasal Cannula 2.0 28 11/04/16 19:00 93 25 Nasal Cannula 2.0 11/04/16 16:16 98.0 94 18 145/85 Nasal Cannula 2.0 82 Height (Feet): 5 Height (Inches): 8.00 Weight (Pounds): 143 General Appearance: no acute distress Respiratory/Chest: no respiratory distress Cardiovascular: normal rate, regular rhythm Abdomen: normal bowel sounds, soft, non tender, non distended Microbiology Date/Time Source Procedure Growth Status 11/05/16 11:30 Nasal Nares Influenza Types A,B Antigen (YANELI) - Final Complete 11/04/16 00:00 Sputum Gram Stain - Final Resulted 11/04/16 00:00 Sputum Sputum Culture Pending Resulted Laboratory Tests Test 11/04/16 21:20 11/05/16 07:00 11/05/16 10:20 11/05/16 14:00 Troponin I < 0.30 ng/mL (<=0.30) < 0.30 ng/mL (<=0.30) White Blood Count 10.4 K/UL (4.8-10.8) Red Blood Count 5.06 M/UL (4.70-6.10) Hemoglobin 15.5 G/DL (14.2-18.0) Hematocrit 47.2 % (42.0-52.0) Mean Corpuscular Volume 93 FL (80-99) Mean Corpuscular Hemoglobin 30.6 PG (27.0-31.0) Mean Corpuscular Hemoglobin Concent 32.8 G/DL (32.0-36.0) Red Cell Distribution Width 13.2 % (11.6-14.8) Platelet Count 391 K/UL (150-450) Mean Platelet Volume 6.8 FL (6.5-10.1) Neutrophils (%) (Auto) 47.3 % (45.0-75.0) Lymphocytes (%) (Auto) 29.9 % (20.0-45.0) Monocytes (%) (Auto) 10.4 % (1.0-10.0) H Eosinophils (%) (Auto) 10.0 % (0.0-3.0) H Basophils (%) (Auto) 2.4 % (0.0-2.0) H Sodium Level 136 mEQ/L (135-145) Potassium Level 3.8 mEQ/L (3.4-4.9) Chloride Level 92 mEQ/L (98-107) L Carbon Dioxide Level 24 mEQ/L (20-30) Anion Gap 20 (5-15) H Blood Urea Nitrogen 20 mg/dL (7-23) Creatinine 1.5 mg/dL (0.7-1.2) H Estimat Glomerular Filtration Rate mL/min (>60) Glucose Level 113 mg/dL (74-106) H Calcium Level 9.5 mg/dL (8.6-10.2) Phosphorus Level 3.9 mg/dL (2.5-4.8) Albumin 3.3 g/dL (3.5-5.2) L Hepatitis A IgM Antibody Pending Hepatitis B Surface Antigen Pending Hepatitis B Core IgM Antibody Pending Hepatitis C Antibody Pending Urine Legionella Antigen Pending Current Medications Medications (Trade) Dose Ordered Sig/Jackie Route PRN Reason Start Time Stop Time Status Last Admin Dose Admin Acetaminophen (Tylenol) 650 mg Q4H PRN ORAL Fever 11/04/16 17:15 12/04/16 17:14 11/04/16 18:32 Albuterol/ Ipratropium 3 ml 3 ml Q4H PRN HHN Shortness of Breath 11/04/16 17:15 11/09/16 17:14 11/05/16 14:55 Dextrose (Dextrose 50%) STAT PRN IV Hypoglycemia 11/04/16 17:15 12/04/16 17:14 Heparin Sodium (Porcine) (Heparin 5000 units/ml) 5,000 units EVERY 12 HOURS SUBQ 11/04/16 21:00 12/04/16 20:59 11/05/16 08:24 Levofloxacin (Levaquin) 50 ml @ 50 mls/hr Q24H IVPB 11/05/16 09:00 11/11/16 08:59 11/05/16 08:22 Levothyroxine Sodium (Synthroid) 88 mcg ACBREAKFAST ORAL 11/05/16 06:30 12/05/16 06:29 11/05/16 06:26 Memantine (Namenda) 5 mg DAILY ORAL 2/9/17 09:00 12/05/16 08:59 11/05/16 08:23 Ondansetron HCl (Zofran) 4 mg Q6H PRN IVP Nausea & Vomiting 11/04/16 17:15 12/04/16 17:14 Piperacillin Sod/ Tazobactam Sod/ Dextrose (Zosyn/D5W) 110 ml @ 27.5 mls/hr EVERY 8 HOURS IVPB 11/05/16 18:00 11/10/16 17:59 Polyethylene Glycol (Miralax) 17 gm DAILYPRN PRN ORAL Constipation 11/04/16 17:15 12/04/16 17:14 Promethazine HCl/ Codeine 5 ml 5 ml Q4H PRN ORAL For Cough 11/04/16 17:15 12/04/16 17:14 Temazepam (Restoril) 15 mg HSPRN PRN ORAL Insomnia 11/04/16 17:15 11/11/16 17:14 11/04/16 21:20 JOEL MAURO Nov 05, 2016 16:19
[2016-11-05 18:05] LABS: ALANINE AMINOTRANSFERASE 45 U/L (3-41); ALBUMIN/GLOBULIN RATIO 0.7 (1.0-2.7); ANION GAP 21 (5-15); ASPARTATE AMINO TRANSFERASE 53 U/L (5-40); CALCIUM 9.3 mg/dL (8.6-10.2); CARBON DIOXIDE 25 mEQ/L (20-30); CHLORIDE 90 mEQ/L (98-107); CREATININE 1.7 mg/dL (0.7-1.2); HEMOLYSIS 3; PHOSPHORUS 3.7 mg/dL (2.5-4.8); POTASSIUM 3.5 mEQ/L (3.4-4.9); SODIUM 136 mEQ/L (135-145); TOTAL PROTEIN 8.1 g/dL (6.6-8.7); URIC ACID 8.6 mg/dL (3.0-7.5)
[2016-11-05 18:11] LABS: FREE T3 3.2 pg/mL (2.3-4.2)
[2016-11-05] MEDS: Zosyn 3.375gm q8h **Extended infusion IVPB SCH ×2 (18:21)
[2016-11-05 20:00] VITALS: BP 103/64
[2016-11-05 20:12] LABS: APPEARANCE,URINE CLEAR; KETONES,URINE NEGATIVE (NEGATIVE); LEUKOCYTE ESTERASE ,URINE NEGATIVE (NEGATIVE); NITRITE,URINE NEGATIVE (NEGATIVE); PH,URINE 5 (4.5-8.0); PROTEIN,URINE NEGATIVE (NEGATIVE); UROBILINOGEN,URINE NORMAL MG/DL (0.0-1.0)
[2016-11-05 20:35] LABS: HYALINE CASTS, URINE 15-20 /LPF; RBC,URINE 0 /HPF (0 - 0); WBC,URINE 0-2 /HPF (0 - 0)
[2016-11-05 20:36] LABS: SQUAMOUS EPITHELIAL CELL,UR OCCASIONAL /LPF (NONE/OCC)
--- NOTE | 2016-11-05 21:13 | Cardiology Progress Note ---
Assessment/Plan Assessment/Plan 1. Respiratory insufficiency. 2. Interstitial lung disease. 3. Cardiomegaly. 4. Ascending aortic aneurysm. 5. Chronic kidney disease. 6. Chronic respiratory failure, on home oxygen. 7. Dementia. 8. Hypothyroidism. 9. Hyperlipidemia. bp seem lower side of normal all trop neg increased cr agree with dd lasix tele noted neg echo prelim showed good lv function to med surg soon ns bolus if bp drops doubt chf Subjective Cardiovascular: Denies: chest pain Respiratory: Reports: SOB at rest, cough, shortness of breath Genitourinary: Denies: burning Subjective Objective Last 24 Hour Vital Signs Date Time Temp Pulse Resp B/P Pulse Ox O2 Delivery O2 Flow Rate FiO2 11/05/16 20:00 99 21 103/64 Nasal Cannula 2.0 91 11/05/16 19:27 98 Nasal Cannula 2.0 28 11/05/16 19:27 93 18 Nasal Cannula 2.0 28 11/05/16 19:27 Nasal Cannula 2.0 28 11/05/16 16:00 93 11/05/16 16:00 96.0 96 18 109/86 Nasal Cannula 2.0 96 11/05/16 14:56 76 27 100 Nasal Cannula 2.0 28 11/05/16 14:56 89 28 100 Nasal Cannula 2.0 28 11/05/16 14:55 28 11/05/16 12:41 96.9 86 20 96/50 97 Nasal Cannula 2.0 11/05/16 12:00 86 11/05/16 08:20 97.0 95 20 123/82 95 Nasal Cannula 2.0 11/05/16 08:00 94 11/05/16 07:31 94 Nasal Cannula 2.0 28 11/05/16 07:31 Nasal Cannula 2.0 28 11/05/16 07:31 95 21 Nasal Cannula 2.0 11/05/16 04:00 97.3 85 20 112/71 98 Room Air 11/05/16 04:00 81 11/05/16 00:19 97.0 90 20 93/72 95 Nasal Cannula 2.0 11/05/16 00:00 88 General Appearance: alert Neck: supple Cardiovascular: normal rate, regular rhythm Respiratory/Chest: crackles/rales Abdomen: normal bowel sounds, non tender, soft Extremities: no swelling Intake and Output 11/04/16 11/05/16 19:00 07:00 # Voids 1 # Bowel Movements 2 Laboratory Tests Test 11/04/16 21:20 11/05/16 07:00 11/05/16 10:20 11/05/16 14:00 Troponin I < 0.30 ng/mL (<=0.30) < 0.30 ng/mL (<=0.30) White Blood Count 10.4 K/UL (4.8-10.8) Red Blood Count 5.06 M/UL (4.70-6.10) Hemoglobin 15.5 G/DL (14.2-18.0) Hematocrit 47.2 % (42.0-52.0) Mean Corpuscular Volume 93 FL (80-99) Mean Corpuscular Hemoglobin 30.6 PG (27.0-31.0) Mean Corpuscular Hemoglobin Concent 32.8 G/DL (32.0-36.0) Red Cell Distribution Width 13.2 % (11.6-14.8) Platelet Count 391 K/UL (150-450) Mean Platelet Volume 6.8 FL (6.5-10.1) Neutrophils (%) (Auto) 47.3 % (45.0-75.0) Lymphocytes (%) (Auto) 29.9 % (20.0-45.0) Monocytes (%) (Auto) 10.4 % (1.0-10.0) H Eosinophils (%) (Auto) 10.0 % (0.0-3.0) H Basophils (%) (Auto) 2.4 % (0.0-2.0) H Sodium Level 136 mEQ/L (135-145) Potassium Level 3.8 mEQ/L (3.4-4.9) Chloride Level 92 mEQ/L (98-107) L Carbon Dioxide Level 24 mEQ/L (20-30) Anion Gap 20 (5-15) H Blood Urea Nitrogen 20 mg/dL (7-23) Creatinine 1.5 mg/dL (0.7-1.2) H Estimat Glomerular Filtration Rate mL/min (>60) Glucose Level 113 mg/dL (74-106) H Calcium Level 9.5 mg/dL (8.6-10.2) Phosphorus Level 3.9 mg/dL (2.5-4.8) Albumin 3.3 g/dL (3.5-5.2) L Hepatitis A IgM Antibody Pending Hepatitis B Surface Antigen Pending Hepatitis B Core IgM Antibody Pending Hepatitis C Antibody Pending Urine Color Yellow Urine Appearance Clear Urine pH 5 (4.5-8.0) Urine Specific [place] 1.015 (1.005-1.035) Urine Protein Negative (NEGATIVE) Urine Glucose (UA) Negative (NEGATIVE) Urine Ketones Negative (NEGATIVE) Urine Occult Blood Negative (NEGATIVE) Urine Nitrite Negative (NEGATIVE) Urine Bilirubin Negative (NEGATIVE) Urine Urobilinogen Normal MG/DL (0.0-1.0) Urine Leukocyte Esterase Negative (NEGATIVE) Urine RBC 0 /HPF (0 - 0) Urine WBC 0-2 /HPF (0 - 0) Urine Squamous Epithelial Cells Occasional /LPF Urine Bacteria None /HPF (NONE) Urine Hyaline Casts 15-20 /LPF (NONE) H Urine Eosinophils Pending Urine Osmolality Pending Urine Random Sodium 40 mmol/L Urine Random Chloride 67 mmol/L Urine Potassium Timed 71 mmol/L Urine Legionella Antigen Pending Test 11/05/16 17:25 Sodium Level 136 mEQ/L (135-145) Potassium Level 3.5 mEQ/L (3.4-4.9) Chloride Level 90 mEQ/L (98-107) L Carbon Dioxide Level 25 mEQ/L (20-30) Anion Gap 21 (5-15) H Blood Urea Nitrogen 21 mg/dL (7-23) Creatinine 1.7 mg/dL (0.7-1.2) H Estimat Glomerular Filtration Rate mL/min (>60) Glucose Level 152 mg/dL (74-106) H Plasma/Serum Osmolality Pending Uric Acid 8.6 mg/dL (3.0-7.5) H Calcium Level 9.3 mg/dL (8.6-10.2) Phosphorus Level 3.7 mg/dL (2.5-4.8) Magnesium Level 2.0 mg/dL (1.7-2.5) Total Bilirubin 0.5 mg/dL (0.0-1.2) Aspartate Amino Transf (AST/SGOT) 53 U/L (5-40) H Alanine Aminotransferase (ALT/SGPT) 45 U/L (3-41) H Alkaline Phosphatase 141 U/L (40-129) H Total Creatine Kinase 29 U/L (38-174) L Total Protein 8.1 g/dL (6.6-8.7) Albumin 3.5 g/dL (3.5-5.2) Globulin 4.6 g/dL Albumin/Globulin Ratio 0.7 (1.0-2.7) L Thyroid Stimulating Hormone (TSH) 3.810 uIU/mL (0.300-4.500) Free Thyroxine 2.17 ng/dL (0.86-1.85) H Free Triiodothyronine 3.2 pg/mL (2.3-4.2) Cortisol Pending Microbiology Date/Time Source Procedure Growth Status 11/05/16 11:30 Nasal Nares Influenza Types A,B Antigen (YANELI) - Final Complete 11/04/16 00:00 Sputum Gram Stain - Final Resulted 11/04/16 00:00 Sputum Sputum Culture Pending Resulted ELIEZER GOLD Nov 05, 2016 21:13
[2016-11-05] MEDS ORDERED: NS 250 ML IVPB ONE (21:30)
[2016-11-06] VITALS: BP 120/77
[2016-11-06 04:00] VITALS: BP 117/75
[2016-11-06] MEDS: Zosyn 3.375gm q8h **Extended infusion IVPB SCH ×2 (06:23)
[2016-11-06 07:48] LABS: TROPONIN I < 0.30 ng/mL (<=0.30)
[2016-11-06 08:00] VITALS: BP 128/80
[2016-11-06] MEDS: Memantine 10mg tab ORAL SCH (08:50)
[2016-11-06] MEDS: Heparin 5000 units/ml inj SUBQ SCH ×2 (09:42→21:10)
--- NOTE | 2016-11-06 10:12 | Diagnostic Imaging Report ---
Indication: Abdominal pain, elevated renal function test, history of chronic kidney disease Technique: Hanna-scale and duplex images of the upper abdomen were obtained Comparison: The Findings: Exam is somewhat limited, technically challenging due to due to body habitus and labored breathing. Gallbladder is unremarkable, without stones, wall thickening, nor pericholecystic fluid. Sonographic Henry's sign is negative. Common bile duct measures 5 mm in diameter. No intrahepatic biliary ductal dilatation. The right hepatic lobe is not well visualized. Visualized portions demonstrate normal echogenicity, no focal abnormality. Portal vein and hepatic veins are patent.. Pancreas is obscured by bowel gas. Spleen is unremarkable. Left kidney measures 9.7 cm in length. Right kidney measures 10.8 cm length. Both kidneys demonstrate normal echogenicity. There is no hydronephrosis. The left kidney demonstrates a 17 mm calcification in the renal sinus. There are bilateral renal cysts. Urinary bladder is unremarkable. Non-aneurysmal abdominal aorta. Impression: Somewhat limited exam. Noted ability to visualize the pancreas, portions of the right hepatic lobe Negative for gallstones or dilated ducts 17 mm calcification in the left renal sinus, could represent a staghorn calculus. Negative for hydronephrosis Bilateral renal cysts incidentally noted
--- NOTE | 2016-11-06 11:04 | Diagnostic Imaging Report ---
Clinical Indication: DYSPHAGIA Technique: Spiral acquisition obtained through the chest. No IV contrast utilized, per high resolution protocol. Axial 5 x 5 mm slices were reconstructed. Axial 1 mm thick slices were reconstructed using high resolution algorithm at 10 mm intervals. Multiplanar reconstructions generated. Total dose length product 642 mGycm. CTDIvol(s) 20 mGy Comparison: None Findings: Extensive honeycombing and bronchiectasis are seen involving essentially the entirety of the right lower lobe and most of the right middle lobe. In the areas affected by the honeycombing and bronchiectasis, there is fairly extensive groundglass opacity with tiny cystic spaces visible on the high-resolution images. There are a few subpleural bulla or blebs. Calcified nodules are seen at the right lung base. Within the left lung there is a patchy area of chronic fibrotic change in the post or lateral left upper lobe, as well as honeycombing and bronchiectasis involving most of the lingula. Bronchiectasis and honeycombing are seen inferiorly in the left lower lobe, with sparing of the superior segment. There are likewise a few subpleural bulla or blebs, as well as a lingular intraparenchymal bulla There are enlarged mediastinal nodes, with a right paratracheal node that measures 2.4 cm diameter. Normal caliber pulmonary arteries. Ectatic but not aneurysmal (4 cm) ascending thoracic aorta. Normal heart size. No pericardial effusion. The esophagus is unremarkable. The included upper abdominal anatomy is remarkable for pancreatic atrophy. Impression: Bronchiectasis and honeycombing, indicative of end-stage interstitial fibrosis, nonspecific as regards etiology. This involves the vast majority of the right lung, and portions of the left lung as described Subpleural blebs or bullae, could indicate COPD changes No definite acute pulmonary process Mediastinal lymphadenopathy. This may be reactive, inflammatory, or neoplastic Incidental finding of pancreatic atrophy The CT scanner at [facility] is accredited by the [employer] and the scans are performed using protocols designed to limit radiation exposure to as low as reasonably achievable to attain images of sufficient resolution adequate for diagnostic evaluation.
[2016-11-06 12:00] VITALS: BP 120/76
--- NOTE | 2016-11-06 14:42 | Pulmonology Progress Note ---
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 Iv fluids check sputum Subjective ROS Limited/Unobtainable: Yes - slightl Interval Events: slightly less dyspnic Allergies: Coded Allergies: No Known Allergies (Unverified , 11/04/16) Objective Last 24 Hour Vital Signs Date Time Temp Pulse Resp B/P Pulse Ox O2 Delivery O2 Flow Rate FiO2 11/06/16 12:00 97.6 84 22 120/76 95 Nasal Cannula 2.0 11/06/16 08:00 97.4 81 24 128/80 94 Nasal Cannula 2.0 11/06/16 07:46 Nasal Cannula 2.0 11/06/16 07:46 96 Nasal Cannula 2.0 11/06/16 07:45 84 20 Nasal Cannula 2.0 11/06/16 06:00 78 81 101 11/06/16 04:00 97.5 80 20 117/75 97 Nasal Cannula 2.0 11/06/16 00:00 97.7 86 20 120/77 94 Nasal Cannula 2.0 11/05/16 20:00 99 21 103/64 Nasal Cannula 2.0 91 11/05/16 19:27 98 Nasal Cannula 2.0 28 11/05/16 19:27 93 18 Nasal Cannula 2.0 28 11/05/16 19:27 Nasal Cannula 2.0 28 11/05/16 16:00 93 11/05/16 16:00 96.0 96 18 109/86 Nasal Cannula 2.0 96 11/05/16 14:56 76 27 100 Nasal Cannula 2.0 28 11/05/16 14:56 89 28 100 Nasal Cannula 2.0 28 11/05/16 14:55 28 Intake and Output 11/05/16 11/06/16 19:00 07:00 Intake Total 170 ml 27.5 ml Output Total 300 ml 350 ml Balance -130 ml -322.5 ml Intake Oral 120 ml IV Total 50 ml 27.5 ml Output Urine Total 300 ml 350 ml General Appearance: WD/WN HEENT: normocephalic, atraumatic Respiratory/Chest: chest wall non-tender, lungs clear Cardiovascular: normal peripheral pulses, normal rate Abdomen: normal bowel sounds, soft, non tender Extremities: no cyanosis, no clubbing Skin: no lesions Microbiology Date/Time Source Procedure Growth Status 11/04/16 10:00 Blood Blood Culture - Preliminary NO GROWTH AFTER 24 HOURS Resulted 11/04/16 10:00 Blood Blood Culture - Preliminary NO GROWTH AFTER 24 HOURS Resulted 11/05/16 11:30 Nasal Nares Influenza Types A,B Antigen (YANELI) - Final Complete 11/04/16 14:10 Nasal Nares MRSA Culture - Final NO METHICILLIN RESISTANT STAPH AUREUS... Complete 11/04/16 00:00 Sputum Gram Stain - Final Resulted 11/04/16 00:00 Sputum Sputum Culture - Preliminary NORMAL UPPER RESPIRATORY AILYN AT 24 ... Resulted 11/04/16 14:10 Rectum VRE Culture - Final NO VANCOMYCIN RESISTANT ENTEROCOCCUS ... Complete Laboratory Tests 11/05/16 17:25: Sodium Level 136, Potassium Level 3.5, Chloride Level 90L, Carbon Dioxide Level 25, Anion Gap 21H, Blood Urea Nitrogen 21, Creatinine 1.7H, Estimat Glomerular Filtration Rate , Glucose Level 152H, Plasma/Serum Osmolality [Pending], Uric Acid 8.6H, Calcium Level 9.3, Phosphorus Level 3.7, Magnesium Level 2.0, Total Bilirubin 0.5, Aspartate Amino Transf (AST/SGOT) 53H, Alanine Aminotransferase ( ALT/SGPT) 45H, Alkaline Phosphatase 141H, Total Creatine Kinase 29L, Total Protein 8.1, Albumin 3.5, Globulin 4.6, Albumin/Globulin Ratio 0.7L, Thyroid Stimulating Hormone (TSH) 3.810, Free Thyroxine 2.17H, Free Triiodothyronine 3.2 , Cortisol 28.0 11/06/16 04:45: Troponin I < 0.30 Current Medications Medications (Trade) Dose Ordered Sig/Jackie Route PRN Reason Start Time Stop Time Status Last Admin Dose Admin Acetaminophen (Tylenol) 650 mg Q4H PRN ORAL Fever 11/04/16 17:15 12/04/16 17:14 11/04/16 18:32 Albuterol/ Ipratropium 3 ml 3 ml Q4H PRN HHN Shortness of Breath 11/04/16 17:15 11/09/16 17:14 11/05/16 14:55 Dextrose (Dextrose 50%) STAT PRN IV Hypoglycemia 11/04/16 17:15 3/10/17 17:14 Heparin Sodium (Porcine) (Heparin 5000 units/ml) 5,000 units EVERY 12 HOURS SUBQ 11/04/16 21:00 12/04/16 20:59 11/06/16 09:42 Levofloxacin (Levaquin) 50 ml @ 50 mls/hr Q24H IVPB 11/05/16 09:00 11/11/16 08:59 11/06/16 08:50 Levothyroxine Sodium (Synthroid) 88 mcg ACBREAKFAST ORAL 11/05/16 06:30 12/05/16 06:29 11/06/16 06:39 Memantine (Namenda) 5 mg DAILY ORAL 11/05/16 09:00 12/05/16 08:59 11/06/16 08:50 Ondansetron HCl (Zofran) 4 mg Q6H PRN IVP Nausea & Vomiting 11/04/16 17:15 12/04/16 17:14 Piperacillin Sod/ Tazobactam Sod/ Dextrose (Zosyn/D5W) 110 ml @ 27.5 mls/hr EVERY 8 HOURS IVPB 11/05/16 18:00 11/10/16 17:59 11/06/16 06:23 Polyethylene Glycol (Miralax) 17 gm DAILYPRN PRN ORAL Constipation 11/04/16 17:15 12/04/16 17:14 Promethazine HCl/ Codeine 5 ml 5 ml Q4H PRN ORAL For Cough 11/04/16 17:15 12/04/16 17:14 Temazepam (Restoril) 15 mg HSPRN PRN ORAL Insomnia 11/04/16 17:15 11/11/16 17:14 11/04/16 21:20 VERO COLLADO Nov 06, 2016 14:42
--- NOTE | 2016-11-06 14:47 | Infectious Diseases Prog Note ---
Assessment/Plan Assessment/Plan ASSESSMENT: 86 y/o male with: // Acute on chronic respiratory failure r/o HCAP, CHF - SCx, legionella UAg pending - CT Chest: Bronchiectasis and honeycombing, indicative of end-stage interstitial fibrosis, nonspecific as regards etiology. Subpleural blebs or bullae, could indicate COPD changes. No definite acute pulmonary process. Mediastinal lymphadenopathy. This may be reactive, inflammatory, or neoplastic - CXR 11/05: Bilateral extensive interstitial disease, R>L suspect CHF, However, marked similarity to the prior exam raises possibility that this could also be due to chronic interstitial fibrotic change - elevated BNP - h/o O2-dependent pulmonary, fibrosis - negative: influenza // Elevated LFTs r/o hepatobiliary disease - hepatitis panel(-) - US: Negative for gallstones or dilated ducts // Afebrile without leukocytosis // CKD3 // Dementia // NKDA // Full Code PLAN: - continue empiric levaquin d# 3, noted zosyn d# 2 added ( ABX d# 3 / -7 ) - f/u cultures, legionella UAg - monitor CBC, temperatures - monitor BMP - monitor CXR Subjective Allergies: Coded Allergies: No Known Allergies (Unverified , 11/04/16) Subjective remains afebrile CT noted Objective Vital Signs Last 24 Hour Vital Signs Date Time Temp Pulse Resp B/P Pulse Ox O2 Delivery O2 Flow Rate FiO2 11/06/16 12:00 97.6 84 22 120/76 95 Nasal Cannula 2.0 11/06/16 08:00 97.4 81 24 128/80 94 Nasal Cannula 2.0 11/06/16 07:46 Nasal Cannula 2.0 11/06/16 07:46 96 Nasal Cannula 2.0 11/06/16 07:45 84 20 Nasal Cannula 2.0 11/06/16 06:00 78 81 101 11/06/16 04:00 97.5 80 20 117/75 97 Nasal Cannula 2.0 11/06/16 00:00 97.7 86 20 120/77 94 Nasal Cannula 2.0 11/05/16 20:00 99 21 103/64 Nasal Cannula 2.0 91 11/05/16 19:27 98 Nasal Cannula 2.0 28 11/05/16 19:27 93 18 Nasal Cannula 2.0 28 11/05/16 19:27 Nasal Cannula 2.0 28 11/05/16 16:00 93 11/05/16 16:00 96.0 96 18 109/86 Nasal Cannula 2.0 96 11/05/16 14:56 76 27 100 Nasal Cannula 2.0 28 11/05/16 14:56 89 28 100 Nasal Cannula 2.0 28 11/05/16 14:55 28 Height (Feet): 5 Height (Inches): 8.00 Weight (Pounds): 143 General Appearance: no acute distress Respiratory/Chest: decreased breath sounds Cardiovascular: normal rate, regular rhythm Abdomen: normal bowel sounds, soft, non tender, non distended Microbiology Date/Time Source Procedure Growth Status 11/04/16 10:00 Blood Blood Culture - Preliminary NO GROWTH AFTER 24 HOURS Resulted 11/04/16 10:00 Blood Blood Culture - Preliminary NO GROWTH AFTER 24 HOURS Resulted 11/05/16 11:30 Nasal Nares Influenza Types A,B Antigen (YANELI) - Final Complete 11/04/16 14:10 Nasal Nares MRSA Culture - Final NO METHICILLIN RESISTANT STAPH AUREUS... Complete 11/04/16 00:00 Sputum Gram Stain - Final Resulted 11/04/16 00:00 Sputum Sputum Culture - Preliminary NORMAL UPPER RESPIRATORY AILYN AT 24 ... Resulted 11/04/16 14:10 Rectum VRE Culture - Final NO VANCOMYCIN RESISTANT ENTEROCOCCUS ... Complete Laboratory Tests Test 11/05/16 17:25 11/06/16 04:45 Sodium Level 136 mEQ/L (135-145) Potassium Level 3.5 mEQ/L (3.4-4.9) Chloride Level 90 mEQ/L (98-107) L Carbon Dioxide Level 25 mEQ/L (20-30) Anion Gap 21 (5-15) H Blood Urea Nitrogen 21 mg/dL (7-23) Creatinine 1.7 mg/dL (0.7-1.2) H Estimat Glomerular Filtration Rate mL/min (>60) Glucose Level 152 mg/dL (74-106) H Plasma/Serum Osmolality Pending Uric Acid 8.6 mg/dL (3.0-7.5) H Calcium Level 9.3 mg/dL (8.6-10.2) Phosphorus Level 3.7 mg/dL (2.5-4.8) Magnesium Level 2.0 mg/dL (1.7-2.5) Total Bilirubin 0.5 mg/dL (0.0-1.2) Aspartate Amino Transf (AST/SGOT) 53 U/L (5-40) H Alanine Aminotransferase (ALT/SGPT) 45 U/L (3-41) H Alkaline Phosphatase 141 U/L (40-129) H Total Creatine Kinase 29 U/L (38-174) L Total Protein 8.1 g/dL (6.6-8.7) Albumin 3.5 g/dL (3.5-5.2) Globulin 4.6 g/dL Albumin/Globulin Ratio 0.7 (1.0-2.7) L Thyroid Stimulating Hormone (TSH) 3.810 uIU/mL (0.300-4.500) Free Thyroxine 2.17 ng/dL (0.86-1.85) H Free Triiodothyronine 3.2 pg/mL (2.3-4.2) Cortisol 28.0 ug/dL (.) Troponin I < 0.30 ng/mL (<=0.30) Current Medications Medications (Trade) Dose Ordered Sig/Jackie Route PRN Reason Start Time Stop Time Status Last Admin Dose Admin Acetaminophen (Tylenol) 650 mg Q4H PRN ORAL Fever 11/06/16 17:15 12/06/16 17:14 UNV Albuterol/ Ipratropium (DuoNeb 0.5-3(2.5)mg/3ml) 3 ml Q4H PRN HHN Shortness of Breath 11/06/16 17:15 11/11/16 17:14 UNV Dextrose (Dextrose 50%) STAT PRN IV Hypoglycemia 11/06/16 17:15 12/06/16 17:14 UNV Heparin Sodium (Porcine) (Heparin 5000 units/ml) 5,000 units EVERY 12 HOURS SUBQ 11/06/16 21:00 12/06/16 20:59 UNV Levofloxacin 50 ml @ 50 mls/hr Q24H IVPB 11/07/16 09:00 11/14/16 08:59 UNV Levothyroxine Sodium (Synthroid) 88 mcg ACBREAKFAST ORAL 11/07/16 06:30 12/07/16 06:29 UNV Memantine (Namenda) 5 mg DAILY ORAL 11/07/16 09:00 12/07/16 08:59 UNV Ondansetron HCl (Zofran) 4 mg Q6H PRN IVP Nausea & Vomiting 11/06/16 17:15 12/06/16 17:14 UNV Piperacillin Sod/ Tazobactam Sod/ Dextrose (Zosyn/D5W) 110 ml @ 27.5 mls/hr EVERY 8 HOURS IVPB 11/06/16 22:00 11/13/16 21:59 UNV Polyethylene Glycol (Miralax) 17 gm DAILYPRN PRN ORAL Constipation 11/06/16 17:15 12/06/16 17:14 UNV Promethazine HCl/ Codeine (Phenergan with Codeine) 5 ml Q4H PRN ORAL For Cough 11/06/16 17:15 12/06/16 17:14 UNV Sodium Chloride (Sodium Chloride 1000ml bag) 1,000 ml @ 100 mls/hr Q10H IV 11/06/16 14:45 12/06/16 14:44 UNV Temazepam 15 mg 15 mg HSPRN PRN ORAL Insomnia 11/06/16 17:15 11/13/16 17:14 UNV JOEL MAURO Nov 06, 2016 14:47
[2016-11-06] MEDS ORDERED: Miralax 17gm pkt ORAL PRN (15:00)
[2016-11-06] MEDS ORDERED: DuoNeb 0.5-3(2.5)mg/3ml neb HHN PRN (15:00)
[2016-11-06 16:00] VITALS: BP 101/70
[2016-11-06] MEDS: Piperacillin/Tazobactam 3.375 GM in D5W 110 ML IVPB SCH ×2 (16:00→21:12)
--- NOTE | 2016-11-06 16:11 | Consultation ---
Consult Note Consult Note asked to eval for worsening renal failure This is an 86-year-old male, [facility] resident with a history of oxygen-dependent pulmonary fibrosis, admitted on 11/04/2016 with shortness of breath. Chest x-ray shows probable CHF and bilateral lower lobe atelectasis. He is afebrile without leukocytosis. PAST MEDICAL HISTORY: 1. Respiratory insufficiency. 2. Interstitial lung disease. 3. Cardiomegaly. 4. Ascending aortic aneurysm. 5. h/o Chronic kidney disease. 6. Oxygen-dependent pulmonary fibrosis. 7. Dementia. 8. Hypothyroidism. 9. Hyperlipidemia. Patient interviewed , translated by grand daughters data reviewed . Assessment/Plan Status: Worsening renal failure, admitted with Cr 1.2 , now krupa to 1.7 mainly due to Lasix other conditions as mentioned in PH- Mainly admitted for respiratory insufficiency Plan: Slow hydrate- Monitor renal parameters- low dose flomax- avoid nephrotoxics optimize pulmonary status as possible per orders MANOHAR DANIELS Nov 06, 2016 16:11
[2016-11-06 20:00] VITALS: BP 109/62
[2016-11-06] MEDS: Tamsulosin 0.4mg cap ORAL SCH (21:08)
[2016-11-07] VITALS: BP 117/73
[2016-11-07 04:00] VITALS: BP 114/78
[2016-11-07] MEDS: Piperacillin/Tazobactam 3.375 GM in D5W 110 ML IVPB SCH ×3 (05:10→20:33)
[2016-11-07 07:35] LABS: EOSINOPHILS % (AUTO) 12.7 % (0.0-3.0); LYMPHOCYTES % (AUTO) 23.2 % (20.0-45.0); MEAN CORPUSCULAR HEMOGLOBIN 30.9 PG (27.0-31.0); MEAN CORPUSCULAR VOLUME 94 FL (80-99); MEAN PLATELET VOLUME 7.7 FL (6.5-10.1); MONOCYTES % (AUTO) 9.3 % (1.0-10.0); NEUTROPHILS % (AUTO) 52.9 % (45.0-75.0); PLATELET COUNT 343 K/UL (150-450); RED BLOOD COUNT 4.52 M/UL (4.70-6.10); RED CELL DISTRIBUTION WIDTH 12.8 % (11.6-14.8); WHITE BLOOD COUNT 11.6 K/UL (4.8-10.8)
[2016-11-07 07:49] VITALS: BP 123/73
[2016-11-07 08:00] LABS: HEMOGLOBIN A1C 5.8 % (< 6.0)
[2016-11-07 08:08] LABS: CRP QUANT 2.1 mg/dL (< 0.5); MAGNESIUM 2.1 mg/dL (1.7-2.5); PHOSPHORUS 3.3 mg/dL (2.5-4.8)
[2016-11-07 08:11] LABS: ALANINE AMINOTRANSFERASE 35 U/L (3-41); ALBUMIN/GLOBULIN RATIO 0.6 (1.0-2.7); ANION GAP 20 (5-15); ASPARTATE AMINO TRANSFERASE 45 U/L (5-40); CALCIUM 9.1 mg/dL (8.6-10.2); CARBON DIOXIDE 25 mEQ/L (20-30); CHLORIDE 91 mEQ/L (98-107); CHOLESTEROL 120 mg/dL (< 200); CHOLESTEROL/HDL RATIO 2.9 (3.3-4.4); CREATININE 1.5 mg/dL (0.7-1.2); HEMOLYSIS 4; LDL CHOLESTEROL (CALC.) 59 mg/dL (60-99); POTASSIUM 3.7 mEQ/L (3.4-4.9); SODIUM 136 mEQ/L (135-145); TOTAL PROTEIN 7.6 g/dL (6.6-8.7)
[2016-11-07] MEDS: Memantine 10mg tab ORAL SCH (09:47)
[2016-11-07] MEDS: Heparin 5000 units/ml inj SUBQ SCH ×2 (09:49→20:34)
[2016-11-07] MEDS: Promethazine/Codeine 5ml UD ORAL PRN ×2 (10:00→19:33)
--- NOTE | 2016-11-07 10:44 | General Progress Note ---
Assessment/Plan Status: unchanged Status Narrative Cr lower Assessment/Plan s/p Worsening renal failure, admitted with Cr 1.2 , now krupa to 1.7 mainly due to Lasix now lower to 1.5 other conditions as mentioned in PH- Mainly admitted for respiratory insufficiency Plan: Slow hydrate- Monitor renal parameters- low dose flomax- avoid nephrotoxics optimize pulmonary status as possible per orders Subjective ROS Limited/Unobtainable: No Constitutional: Reports: malaise Allergies: Coded Allergies: No Known Allergies (Unverified , 11/04/16) Objective Last 24 Hour Vital Signs Date Time Temp Pulse Resp B/P Pulse Ox O2 Delivery O2 Flow Rate FiO2 11/07/16 08:03 Nasal Cannula 4.0 36 11/07/16 08:03 97 Nasal Cannula 4.0 11/07/16 08:03 75 16 Nasal Cannula 4.0 36 11/07/16 07:49 98.2 81 20 123/73 95 Nasal Cannula 2.0 11/07/16 07:02 72 11/07/16 06:57 73 74 101 11/07/16 04:00 97.3 72 19 114/78 99 Room Air 11/07/16 00:00 97.7 71 16 117/73 98 Room Air 11/06/16 22:00 69 68 80 11/06/16 20:00 97.4 69 17 109/62 94 Room Air 11/06/16 19:29 Nasal Cannula 2.0 11/06/16 19:29 97 Nasal Cannula 2.0 11/06/16 19:29 82 20 Nasal Cannula 2.0 11/06/16 16:00 97.2 90 19 101/70 95 11/06/16 12:00 97.6 84 22 120/76 95 Nasal Cannula 2.0 Intake and Output 11/06/16 11/07/16 19:00 07:00 Intake Total 442.5 ml 502.5 ml Output Total 200 ml Balance 442.5 ml 302.5 ml Intake Oral 360 ml 420 ml IV Total 82.5 ml 82.5 ml Output Urine Total 200 ml # Voids 2 Laboratory Tests 11/07/16 05:30: White Blood Count 11.6H, Red Blood Count 4.52L, Hemoglobin 14.0L, Hematocrit 42.3, Mean Corpuscular Volume 94, Mean Corpuscular Hemoglobin 30.9, Mean Corpuscular Hemoglobin Concent 33.0, Red Cell Distribution Width 12.8, Platelet Count 343, Mean Platelet Volume 7.7, Neutrophils (%) (Auto) 52.9, Lymphocytes (% ) (Auto) 23.2, Monocytes (%) (Auto) 9.3, Eosinophils (%) (Auto) 12.7H, Basophils (%) (Auto) 2.0, Sodium Level 136, Potassium Level 3.7, Chloride Level 91L, Carbon Dioxide Level 25, Anion Gap 20H, Blood Urea Nitrogen 20, Creatinine 1.5H, Estimat Glomerular Filtration Rate , Glucose Level 102, Hemoglobin A1c 5.8 , Uric Acid 6.0, Calcium Level 9.1, Phosphorus Level 3.3, Magnesium Level 2.1, Total Bilirubin 0.7, Gamma Glutamyl Transpeptidase 138H, Aspartate Amino Transf (AST/SGOT) 45H, Alanine Aminotransferase (ALT/SGPT) 35, Alkaline Phosphatase 120 , Total Creatine Kinase 46, C-Reactive Protein, Quantitative 2.1H, Pro-B-Type Natriuretic Peptide 514H, Total Protein 7.6, Albumin 3.1L, Globulin 4.5, Albumin /Globulin Ratio 0.6L, Triglycerides Level 99, Cholesterol Level 120, LDL Cholesterol 59L, HDL Cholesterol 41, Cholesterol/HDL Ratio 2.9L Height (Feet): 5 Height (Inches): 8.00 Weight (Pounds): 143 General Appearance: no apparent distress Cardiovascular: normal rate Respiratory/Chest: decreased breath sounds Abdomen: soft MANOHAR DANIELS Nov 07, 2016 10:44
[2016-11-07 11:41] VITALS: BP 123/74
[2016-11-07 16:00] VITALS: BP 109/62
--- NOTE | 2016-11-07 18:30 | Pulmonology Progress Note ---
Assessment/Plan Problems: (1) Respiratory distress (2) Pneumonia (3) Hypoxia (4) COPD (chronic obstructive pulmonary disease) (5) ATN (acute tubular necrosis) (6) Aortic aneurysm (7) Advanced dementia Assessment/Plan add zosyn hold lasix ct chest reviewed, end stage Emphysema will add steoids Iv fluids check sputum bun/creatinine decreasing Subjective ROS Limited/Unobtainable: No Interval Events: less short of breath Allergies: Coded Allergies: No Known Allergies (Unverified , 11/04/16) Objective Last 24 Hour Vital Signs Date Time Temp Pulse Resp B/P Pulse Ox O2 Delivery O2 Flow Rate FiO2 11/07/16 16:00 97.8 72 19 109/62 100 Room Air 11/07/16 14:05 64 65 81 11/07/16 11:41 98.0 64 21 123/74 100 Nasal Cannula 2.0 11/07/16 08:03 Nasal Cannula 4.0 36 11/07/16 08:03 97 Nasal Cannula 4.0 11/07/16 08:03 75 16 Nasal Cannula 4.0 36 11/07/16 07:49 98.2 81 20 123/73 95 Nasal Cannula 2.0 11/07/16 07:02 72 11/07/16 06:57 73 74 101 11/07/16 04:00 97.3 72 19 114/78 99 Room Air 11/07/16 00:00 97.7 71 16 117/73 98 Room Air 11/06/16 22:00 69 68 80 11/06/16 20:00 97.4 69 17 109/62 94 Room Air 11/06/16 19:29 Nasal Cannula 2.0 11/06/16 19:29 97 Nasal Cannula 2.0 11/06/16 19:29 82 20 Nasal Cannula 2.0 Intake and Output 11/06/16 11/07/16 19:00 07:00 Intake Total 442.5 ml 502.5 ml Output Total 200 ml Balance 442.5 ml 302.5 ml Intake Oral 360 ml 420 ml IV Total 82.5 ml 82.5 ml Output Urine Total 200 ml # Voids 2 Objective General Appearance: WD/WN, no apparent distress, alert EENT: PERRL/EOMI, normal ENT inspection, TMs normal, hair lose. Neck: non-tender, normal alignment, supple, normal inspection Cardiovascular: normal peripheral pulses, normal rate, regular rhythm, no murmur. 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 Skin: normal pigmentation, warm/dry Microbiology Date/Time Source Procedure Growth Status 11/05/16 11:30 Nasal Nares Influenza Types A,B Antigen (YANELI) - Final Complete Laboratory Tests 11/07/16 05:30: White Blood Count 11.6H, Red Blood Count 4.52L, Hemoglobin 14.0L, Hematocrit 42.3, Mean Corpuscular Volume 94, Mean Corpuscular Hemoglobin 30.9, Mean Corpuscular Hemoglobin Concent 33.0, Red Cell Distribution Width 12.8, Platelet Count 343, Mean Platelet Volume 7.7, Neutrophils (%) (Auto) 52.9, Lymphocytes (% ) (Auto) 23.2, Monocytes (%) (Auto) 9.3, Eosinophils (%) (Auto) 12.7H, Basophils (%) (Auto) 2.0, Sodium Level 136, Potassium Level 3.7, Chloride Level 91L, Carbon Dioxide Level 25, Anion Gap 20H, Blood Urea Nitrogen 20, Creatinine 1.5H, Estimat Glomerular Filtration Rate , Glucose Level 102, Hemoglobin A1c 5.8 , Uric Acid 6.0, Calcium Level 9.1, Phosphorus Level 3.3, Magnesium Level 2.1, Total Bilirubin 0.7, Gamma Glutamyl Transpeptidase 138H, Aspartate Amino Transf (AST/SGOT) 45H, Alanine Aminotransferase (ALT/SGPT) 35, Alkaline Phosphatase 120 , Total Creatine Kinase 46, C-Reactive Protein, Quantitative 2.1H, Pro-B-Type Natriuretic Peptide 514H, Total Protein 7.6, Albumin 3.1L, Globulin 4.5, Albumin /Globulin Ratio 0.6L, Triglycerides Level 99, Cholesterol Level 120, LDL Cholesterol 59L, HDL Cholesterol 41, Cholesterol/HDL Ratio 2.9L Current Medications Medications (Trade) Dose Ordered Sig/Jackie Route PRN Reason Start Time Stop Time Status Last Admin Dose Admin Acetaminophen (Tylenol) 650 mg Q4H PRN ORAL Fever 11/06/16 15:00 12/06/16 14:59 Albuterol/ Ipratropium (DuoNeb 0.5-3(2.5)mg/3ml) 3 ml Q4H PRN HHN Shortness of Breath 11/06/16 15:00 11/11/16 14:59 Dextrose (Dextrose 50%) STAT PRN IV Hypoglycemia 11/06/16 15:00 12/06/16 14:59 Heparin Sodium (Porcine) (Heparin 5000 units/ml) 5,000 units EVERY 12 HOURS SUBQ 11/06/16 21:00 12/06/16 20:59 11/07/16 09:49 Levofloxacin 50 ml @ 50 mls/hr Q24H IVPB 11/07/16 09:00 11/14/16 08:59 11/07/16 10:00 Levothyroxine Sodium (Synthroid) 88 mcg ACBREAKFAST ORAL 11/07/16 06:30 12/07/16 06:29 11/07/16 06:07 Memantine (Namenda) 5 mg DAILY ORAL 11/07/16 09:00 12/07/16 08:59 11/07/16 09:47 Ondansetron HCl (Zofran) 4 mg Q6H PRN IVP Nausea & Vomiting 11/06/16 15:00 12/06/16 14:59 Piperacillin Sod/ Tazobactam Sod/ Dextrose (Zosyn/D5W) 110 ml @ 27.5 mls/hr EVERY 8 HOURS IVPB 11/06/16 16:00 11/13/16 15:59 11/07/16 15:09 Polyethylene Glycol (Miralax) 17 gm DAILYPRN PRN ORAL Constipation 11/06/16 15:00 12/06/16 14:59 Promethazine HCl/ Codeine (Phenergan with Codeine) 5 ml Q4H PRN ORAL For Cough 11/06/16 15:00 12/06/16 14:59 11/07/16 10:00 Sodium Chloride (Sodium Chloride 1000ml bag) 1,000 ml @ 75 mls/hr [id number] IV 11/07/16 16:30 12/07/16 16:29 11/07/16 16:30 Tamsulosin HCl (Flomax) 0.4 mg BEDTIME ORAL 11/06/16 21:00 12/06/16 20:59 11/06/16 21:08 Temazepam 15 mg 15 mg HSPRN PRN ORAL Insomnia 11/06/16 17:15 11/13/16 17:14 11/06/16 21:08 VERO COLLADO Nov 07, 2016 18:30
[2016-11-07] MEDS: Solu-MEDROL 125mg Inj IVP SCH (19:32)
[2016-11-07 20:00] VITALS: BP 110/61
[2016-11-07] MEDS: Tamsulosin 0.4mg cap ORAL SCH (20:33)
[2016-11-07] MEDS ORDERED: Tubing IV Secondary IV ONE (22:52)
[2016-11-08] VITALS: BP 125/72
[2016-11-08] MEDS: Solu-MEDROL 125mg Inj IVP SCH ×4 (00:37→17:30)
[2016-11-08 04:00] VITALS: BP 125/77
[2016-11-08] MEDS: Piperacillin/Tazobactam 3.375 GM in D5W 110 ML IVPB SCH ×3 (06:27→22:18)
[2016-11-08 08:19] VITALS: BP 113/61
[2016-11-08] MEDS: Promethazine/Codeine 5ml UD ORAL PRN ×2 (08:31→15:18)
[2016-11-08] MEDS: Memantine 10mg tab ORAL SCH (08:32)
[2016-11-08] MEDS: Heparin 5000 units/ml inj SUBQ SCH ×2 (08:36→20:10)
--- NOTE | 2016-11-08 11:38 | Infectious Diseases Prog Note ---
Assessment/Plan Assessment/Plan ASSESSMENT: 86 y/o male with: // Acute on chronic respiratory failure r/o HCAP, CHF - SCx: [place] Fl , legionella UAg pending - CT Chest: Bronchiectasis and honeycombing, indicative of end-stage interstitial fibrosis, nonspecific as regards etiology. Subpleural blebs or bullae, could indicate COPD changes. No definite acute pulmonary process. Mediastinal lymphadenopathy. This may be reactive, inflammatory, or neoplastic - CXR 11/05: Bilateral extensive interstitial disease, R>L suspect CHF, However, marked similarity to the prior exam raises possibility that this could also be due to chronic interstitial fibrotic change - elevated BNP - h/o O2-dependent pulmonary, fibrosis - negative: influenza // Elevated LFTs r/o hepatobiliary disease - hepatitis panel(-) - US: Negative for gallstones or dilated ducts // Afebrile // mild leukocytosis ( on steroids ) // CKD3 // Dementia // NKDA // Full Code PLAN: - continue empiric levaquin d# 5 , noted zosyn d# 4 added ( ABX d# 5 / 5- 7 ) - f/u legionella UAg - monitor CBC, temperatures - monitor BMP - monitor CXR Subjective Allergies: Coded Allergies: No Known Allergies (Unverified , 11/04/16) Subjective comfortable Objective Vital Signs Last 24 Hour Vital Signs Date Time Temp Pulse Resp B/P Pulse Ox O2 Delivery O2 Flow Rate FiO2 11/08/16 08:19 97.9 92 20 113/61 95 Nasal Cannula 2.0 11/08/16 07:17 80 18 Nasal Cannula 2.0 28 11/08/16 07:17 99 Nasal Cannula 2.0 28 11/08/16 07:17 Nasal Cannula 2.0 28 11/08/16 07:15 80 18 100 Nasal Cannula 2.0 28 11/08/16 07:10 80 18 99 Nasal Cannula 2.0 28 11/08/16 07:10 28 11/08/16 06:00 98 87 95 11/08/16 04:00 97.0 98 20 125/77 98 Room Air 11/08/16 00:00 97.5 68 19 125/72 99 Room Air 11/07/16 22:00 71 62 89 11/07/16 20:00 97.0 70 16 110/61 93 Room Air 11/07/16 19:35 96 Nasal Cannula 2.0 11/07/16 19:35 Nasal Cannula 2.0 11/07/16 19:34 82 18 Nasal Cannula 2.0 11/07/16 16:00 97.8 72 19 109/62 100 Room Air 11/07/16 14:05 64 65 81 11/07/16 11:41 98.0 64 21 123/74 100 Nasal Cannula 2.0 Height (Feet): 5 Height (Inches): 8.00 Weight (Pounds): 143 HEENT: anicteric Respiratory/Chest: normal breath sounds Cardiovascular: regular rhythm Abdomen: no organomegaly Current Medications Medications (Trade) Dose Ordered Sig/Jackie Route PRN Reason Start Time Stop Time Status Last Admin Dose Admin Acetaminophen (Tylenol) 650 mg Q4H PRN ORAL Fever 11/06/16 15:00 12/06/16 14:59 Albuterol/ Ipratropium (DuoNeb 0.5-3(2.5)mg/3ml) 3 ml Q4H PRN HHN Shortness of Breath 11/06/16 15:00 11/11/16 14:59 Dextrose (Dextrose 50%) STAT PRN IV Hypoglycemia 11/06/16 15:00 12/06/16 14:59 Heparin Sodium (Porcine) (Heparin 5000 units/ml) 5,000 units EVERY 12 HOURS SUBQ 11/06/16 21:00 12/06/16 20:59 11/08/16 08:36 Levofloxacin 50 ml @ 50 mls/hr Q24H IVPB 11/07/16 09:00 11/14/16 08:59 11/08/16 10:20 Levothyroxine Sodium (Synthroid) 88 mcg ACBREAKFAST ORAL 11/07/16 06:30 12/07/16 06:29 11/08/16 06:27 Memantine (Namenda) 5 mg DAILY ORAL 11/07/16 09:00 12/07/16 08:59 11/08/16 08:32 Methylprednisolone Sodium Succinate (Solu-MEDROL) 60 mg EVERY 6 HOURS IVP 11/07/16 19:00 12/07/16 18:59 11/08/16 06:27 Ondansetron HCl (Zofran) 4 mg Q6H PRN IVP Nausea & Vomiting 11/06/16 15:00 12/06/16 14:59 Piperacillin Sod/ Tazobactam Sod/ Dextrose (Zosyn/D5W) 110 ml @ 27.5 mls/hr EVERY 8 HOURS IVPB 11/06/16 16:00 11/13/16 15:59 11/08/16 06:27 Polyethylene Glycol (Miralax) 17 gm DAILYPRN PRN ORAL Constipation 11/06/16 15:00 12/06/16 14:59 Promethazine HCl/ Codeine (Phenergan with Codeine) 5 ml Q4H PRN ORAL For Cough 11/06/16 15:00 12/06/16 14:59 11/08/16 08:31 Sodium Chloride (Sodium Chloride 1000ml bag) 1,000 ml @ 75 mls/hr [id number] IV 11/07/16 16:30 12/07/16 16:29 11/08/16 06:27 Tamsulosin HCl (Flomax) 0.4 mg BEDTIME ORAL 11/06/16 21:00 12/06/16 20:59 11/07/16 20:33 Temazepam 15 mg 15 mg HSPRN PRN ORAL Insomnia 11/06/16 17:15 11/13/16 17:14 11/07/16 20:33 ELICEO KWOK M.D. Nov 08, 2016 11:38
--- NOTE | 2016-11-08 11:53 | General Progress Note ---
Assessment/Plan Status: stable - from renal stand Assessment/Plan s/p Worsening renal failure, admitted with Cr 1.2 , now krupa to 1.7 mainly due to Lasix now lower to 1.5 other conditions as mentioned in PH- Mainly admitted for respiratory insufficiency Plan: no labs today- Slow hydrate- Monitor renal parameters- low dose flomax- avoid nephrotoxics optimize pulmonary status as possible per orders Subjective ROS Limited/Unobtainable: No Allergies: Coded Allergies: No Known Allergies (Unverified , 11/04/16) Objective Last 24 Hour Vital Signs Date Time Temp Pulse Resp B/P Pulse Ox O2 Delivery O2 Flow Rate FiO2 11/08/16 08:19 97.9 92 20 113/61 95 Nasal Cannula 2.0 11/08/16 07:17 80 18 Nasal Cannula 2.0 28 11/08/16 07:17 99 Nasal Cannula 2.0 28 11/08/16 07:17 Nasal Cannula 2.0 28 11/08/16 07:15 80 18 100 Nasal Cannula 2.0 28 11/08/16 07:10 80 18 99 Nasal Cannula 2.0 28 11/08/16 07:10 28 11/08/16 06:00 98 87 95 11/08/16 04:00 97.0 98 20 125/77 98 Room Air 11/08/16 00:00 97.5 68 19 125/72 99 Room Air 11/07/16 22:00 71 62 89 11/07/16 20:00 97.0 70 16 110/61 93 Room Air 11/07/16 19:35 96 Nasal Cannula 2.0 11/07/16 19:35 Nasal Cannula 2.0 11/07/16 19:34 82 18 Nasal Cannula 2.0 11/07/16 16:00 97.8 72 19 109/62 100 Room Air 11/07/16 14:05 64 65 81 Intake and Output 11/07/16 11/08/16 19:00 07:00 Intake Total 277.5 ml 1172.5 ml Output Total 300 ml 400 ml Balance -22.5 ml 772.5 ml Intake Oral 200 ml 620 ml IV Total 77.5 ml 552.5 ml Output Urine Total 300 ml 400 ml # Voids 4 Height (Feet): 5 Height (Inches): 8.00 Weight (Pounds): 143 General Appearance: no apparent distress, other - comfortable at rest Objective Physical exam not changed MANOHAR DANIELS Nov 08, 2016 11:53
[2016-11-08 12:04] VITALS: BP 110/57
--- NOTE | 2016-11-08 15:45 | Pulmonology Progress Note ---
Assessment/Plan Problems: (1) Pulmonary fibrosis (2) Interstitial lung disease (3) Respiratory distress (4) Pneumonia (5) Hypoxia (6) COPD (chronic obstructive pulmonary disease) (7) ATN (acute tubular necrosis) (8) Aortic aneurysm (9) Advanced dementia Assessment/Plan add zosyn hold lasix ct chest reviewed, end stage Emphysema will add steoids Iv fluids check sputum check cbc bmp in am bun/creatinine decreasing Subjective ROS Limited/Unobtainable: No Interval Events: still short of breath Allergies: Coded Allergies: No Known Allergies (Unverified , 11/04/16) Objective Last 24 Hour Vital Signs Date Time Temp Pulse Resp B/P Pulse Ox O2 Delivery O2 Flow Rate FiO2 11/08/16 14:09 79 82 86 11/08/16 12:04 97.6 83 21 110/57 95 Nasal Cannula 2.0 11/08/16 08:19 97.9 92 20 113/61 95 Nasal Cannula 2.0 11/08/16 07:17 80 18 Nasal Cannula 2.0 28 11/08/16 07:17 99 Nasal Cannula 2.0 28 11/08/16 07:17 Nasal Cannula 2.0 28 11/08/16 07:15 80 18 100 Nasal Cannula 2.0 28 11/08/16 07:10 80 18 99 Nasal Cannula 2.0 28 11/08/16 07:10 28 11/08/16 06:00 98 87 95 11/08/16 04:00 97.0 98 20 125/77 98 Room Air 11/08/16 00:00 97.5 68 19 125/72 99 Room Air 11/07/16 22:00 71 62 89 11/07/16 20:00 97.0 70 16 110/61 93 Room Air 11/07/16 19:35 96 Nasal Cannula 2.0 11/07/16 19:35 Nasal Cannula 2.0 11/07/16 19:34 82 18 Nasal Cannula 2.0 11/07/16 16:00 97.8 72 19 109/62 100 Room Air Intake and Output 11/07/16 11/08/16 19:00 07:00 Intake Total 277.5 ml 1172.5 ml Output Total 300 ml 400 ml Balance -22.5 ml 772.5 ml Intake Oral 200 ml 620 ml IV Total 77.5 ml 552.5 ml Output Urine Total 300 ml 400 ml # Voids 4 Objective General Appearance: WD/WN, no apparent distress, alert EENT: PERRL/EOMI, normal ENT inspection, TMs normal, hair lose. Neck: non-tender, normal alignment, supple, normal inspection Cardiovascular: normal peripheral pulses, normal rate, regular rhythm, no murmur. 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 Skin: normal pigmentation, warm/dry General Appearance: WD/WN HEENT: normocephalic Respiratory/Chest: chest wall non-tender, lungs clear Cardiovascular: normal peripheral pulses, normal rate Abdomen: normal bowel sounds, soft, non tender Genitourinary: normal external genitalia Extremities: no cyanosis Skin: no rash Current Medications Medications (Trade) Dose Ordered Sig/Jackie Route PRN Reason Start Time Stop Time Status Last Admin Dose Admin Acetaminophen (Tylenol) 650 mg Q4H PRN ORAL Fever 11/06/16 15:00 12/06/16 14:59 Albuterol/ Ipratropium (DuoNeb 0.5-3(2.5)mg/3ml) 3 ml Q4H PRN HHN Shortness of Breath 11/06/16 15:00 11/11/16 14:59 Dextrose (Dextrose 50%) STAT PRN IV Hypoglycemia 11/06/16 15:00 12/06/16 14:59 Heparin Sodium (Porcine) (Heparin 5000 units/ml) 5,000 units EVERY 12 HOURS SUBQ 11/06/16 21:00 12/06/16 20:59 11/08/16 08:36 Levofloxacin 50 ml @ 50 mls/hr Q24H IVPB 11/07/16 09:00 11/14/16 08:59 11/08/16 10:20 Levothyroxine Sodium (Synthroid) 88 mcg ACBREAKFAST ORAL 11/07/16 06:30 12/07/16 06:29 11/08/16 06:27 Memantine (Namenda) 5 mg DAILY ORAL 11/07/16 09:00 12/07/16 08:59 11/08/16 08:32 Methylprednisolone Sodium Succinate (Solu-MEDROL) 60 mg EVERY 6 HOURS IVP 11/07/16 19:00 12/07/16 18:59 11/08/16 13:30 Ondansetron HCl (Zofran) 4 mg Q6H PRN IVP Nausea & Vomiting 11/06/16 15:00 12/06/16 14:59 Piperacillin Sod/ Tazobactam Sod/ Dextrose (Zosyn/D5W) 110 ml @ 27.5 mls/hr EVERY 8 HOURS IVPB 11/06/16 16:00 11/13/16 15:59 11/08/16 13:31 Polyethylene Glycol (Miralax) 17 gm DAILYPRN PRN ORAL Constipation 11/06/16 15:00 12/06/16 14:59 Promethazine HCl/ Codeine (Phenergan with Codeine) 5 ml Q4H PRN ORAL For Cough 11/06/16 15:00 12/06/16 14:59 11/08/16 15:18 Sodium Chloride (Sodium Chloride 1000ml bag) 1,000 ml @ 75 mls/hr [id number] IV 11/07/16 16:30 12/07/16 16:29 11/08/16 06:27 Tamsulosin HCl (Flomax) 0.4 mg BEDTIME ORAL 11/06/16 21:00 12/06/16 20:59 11/07/16 20:33 Temazepam 15 mg 15 mg HSPRN PRN ORAL Insomnia 11/06/16 17:15 11/13/16 17:14 11/07/16 20:33 VERO OCLLADO Nov 08, 2016 15:45
[2016-11-08 16:00] VITALS: BP 115/69
[2016-11-08 20:00] VITALS: BP 111/61
[2016-11-08] MEDS: Tamsulosin 0.4mg cap ORAL SCH ×2 (20:07→20:15)
[2016-11-09] VITALS: BP 114/60
[2016-11-09] MEDS: Solu-MEDROL 125mg Inj IVP SCH ×3 (00:26→12:59)
[2016-11-09 04:00] VITALS: BP 121/103
[2016-11-09] MEDS: Piperacillin/Tazobactam 3.375 GM in D5W 110 ML IVPB SCH ×3 (06:16→22:16)
[2016-11-09 07:50] LABS: ALANINE AMINOTRANSFERASE 25 U/L (3-41); ALBUMIN/GLOBULIN RATIO 0.8 (1.0-2.7); ANION GAP 16 (5-15); ASPARTATE AMINO TRANSFERASE 35 U/L (5-40); CARBON DIOXIDE 25 mEQ/L (20-30); CHLORIDE 97 mEQ/L (98-107); CREATININE 1.1 mg/dL (0.7-1.2); HEMOLYSIS 13; MAGNESIUM 2.2 mg/dL (1.7-2.5); PHOSPHORUS 2.8 mg/dL (2.5-4.8); POTASSIUM 3.8 mEQ/L (3.4-4.9); SODIUM 138 mEQ/L (135-145); TOTAL PROTEIN 6.7 g/dL (6.6-8.7)
[2016-11-09 07:52] LABS: MEAN CORPUSCULAR HEMOGLOBIN 31.1 PG (27.0-31.0); MEAN CORPUSCULAR HGB CONC 33.1 G/DL (32.0-36.0); MEAN CORPUSCULAR VOLUME 94 FL (80-99); MEAN PLATELET VOLUME 8.4 FL (6.5-10.1); PLATELET COUNT 270 K/UL (150-450); RED BLOOD COUNT 4.14 M/UL (4.70-6.10); RED CELL DISTRIBUTION WIDTH 13.3 % (11.6-14.8); WHITE BLOOD COUNT 13.5 K/UL (4.8-10.8)
[2016-11-09 07:59] VITALS: BP 130/64
[2016-11-09] MEDS: Memantine 10mg tab ORAL SCH (10:03)
[2016-11-09] MEDS: Heparin 5000 units/ml inj SUBQ SCH ×2 (10:04→22:13)
--- NOTE | 2016-11-09 10:51 | Cardiology Report ---
APPROVED REPORT EXAM: Two-dimensional and M-mode echocardiogram with Doppler and color Doppler. INDICATION Left Ventricular Function M-Mode DIMENSIONS IVSd.5 (0.7-1.1cm)Left Atrium (MM)3.8 (1.6-4.0cm) LVDd4.2 (3.5-5.6cm)Aortic Root3.5 (2.0-3.7cm) PWd.7 (0.7-1.1cm)Aortic Cusp Exc.1.8 (1.5-2.0cm) LVDs2.5 (2.5-4.0cm) PWs1.1 cm Technically difficult study due to poor acoustic windows. Study quality precludes accurate assessment of regional wall motion. Normal left ventricular chamber size, grossley normal systolic function and wall motion. Left ventricular ejection fraction estimated to be 55-60 %. No evidence of ventricular hypertrophy. Small pericardial effusion. All other cardiac chamber sizes are within normal limits. Mild focal aortic valve sclerosis with adequate cusp excursion. Mildly thickened mitral valve leaflets with normal excursion. Mild mitral annulus and aortic root calcification. Pulmonic valve not well visualized. Normal tricuspid valve structure. IVC at normal size with physiologic collapse. Aortic root no fully measrued A color flow and spectral Doppler study was performed and revealed: Mild to moderate aortic regurgitation. Trace mitral regurgitation. Mitral diastolic velocities suggest reduced left ventricular relaxation (Grade I). Trace tricuspid regurgitation. Trace pulmonic regurgitation present.
[2016-11-09 10:54] LABS: BAND NEUTROPHILS % (MANUAL) 0 % (0-8); BASOPHILS % (MANUAL) 0 % (0-2); EOSINOPHILS % (MANUAL) 0 % (0-3); LYMPHOCYTES % (MANUAL) 8 % (20-45); NEUTROPHILS % (MANUAL) 89 % (45-75); PLATELET ESTIMATE ADEQUATE; PLATELET MORPHOLOGY NORMAL; TOTAL CELLS COUNTED 100
--- NOTE | 2016-11-09 11:02 | General Progress Note ---
Assessment/Plan Status: stable - from renal stand Status Narrative Cr level normalized Assessment/Plan s/p Worsening renal failure, admitted with Cr 1.2 , now krupa to 1.7 mainly due to Lasix now lower to 1.5 other conditions as mentioned in PH- Mainly admitted for respiratory insufficiency Plan: stop Hydration Monitor renal parameters- low dose flomax- avoid nephrotoxics optimize pulmonary status as possible per orders Subjective ROS Limited/Unobtainable: No Constitutional: Reports: malaise, weakness Allergies: Coded Allergies: No Known Allergies (Unverified , 11/04/16) Objective Last 24 Hour Vital Signs Date Time Temp Pulse Resp B/P Pulse Ox O2 Delivery O2 Flow Rate FiO2 11/09/16 07:59 98.4 66 20 130/64 96 Room Air 11/09/16 07:45 94 Nasal Cannula 2.0 11/09/16 07:45 Nasal Cannula 2.0 28 11/09/16 07:45 81 18 Nasal Cannula 2.0 11/09/16 06:00 66 85 89 11/09/16 04:00 98.8 66 18 121/103 94 Room Air 11/09/16 00:00 98.1 69 18 114/60 94 Room Air 11/08/16 22:00 96 109 112 11/08/16 20:00 97.5 75 18 111/61 96 Room Air 11/08/16 19:46 81 18 Nasal Cannula 2.0 11/08/16 19:45 95 Nasal Cannula 2.0 11/08/16 19:45 Nasal Cannula 2.0 28 11/08/16 16:00 97.5 89 19 115/69 95 Room Air 11/08/16 14:09 79 82 86 11/08/16 12:04 97.6 83 21 110/57 95 Nasal Cannula 2.0 Intake and Output 11/08/16 11/09/16 19:00 07:00 Intake Total 750 ml 980.0 ml Output Total 450 ml Balance 300 ml 980.0 ml Intake Oral 450 ml 720 ml IV Total 300 ml 260.0 ml Output Urine Total 450 ml # Voids 3 Laboratory Tests 11/09/16 06:35: White Blood Count 13.5H, Red Blood Count 4.14L, Hemoglobin 12.9L, Hematocrit 38.9L, Mean Corpuscular Volume 94, Mean Corpuscular Hemoglobin 31.1H, Mean Corpuscular Hemoglobin Concent 33.1, Red Cell Distribution Width 13.3, Platelet Count 270, Mean Platelet Volume 8.4, Neutrophils (%) (Auto) , Lymphocytes (%) ( Auto) , Monocytes (%) (Auto) , Eosinophils (%) (Auto) , Basophils (%) (Auto) , Differential Total Cells Counted 100, Neutrophils % (Manual) 89H, Lymphocytes % (Manual) 8L, Monocytes % (Manual) 3, Eosinophils % (Manual) 0, Basophils % ( Manual) 0, Band Neutrophils 0, Platelet Estimate Adequate, Platelet Morphology Normal, Red Blood Cell Morphology Normal, Sodium Level 138, Potassium Level 3.8 , Chloride Level 97L, Carbon Dioxide Level 25, Anion Gap 16H, Blood Urea Nitrogen 18, Creatinine 1.1, Estimat Glomerular Filtration Rate , Glucose Level 152H, Uric Acid 4.0, Calcium Level 9.0, Phosphorus Level 2.8, Magnesium Level 2.2, Total Bilirubin 0.4, Aspartate Amino Transf (AST/SGOT) 35, Alanine Aminotransferase (ALT/SGPT) 25, Alkaline Phosphatase 92, Pro-B-Type Natriuretic Peptide 1455H, Total Protein 6.7, Albumin 3.0L, Globulin 3.7, Albumin/Globulin Ratio 0.8L Height (Feet): 5 Height (Inches): 8.00 Weight (Pounds): 143 General Appearance: no apparent distress, other - comfortable at rest Objective Physical exam not changed MANOHAR DANIELS Nov 09, 2016 11:02
[2016-11-09 12:15] VITALS: BP 150/77
[2016-11-09 16:00] VITALS: BP 130/72
--- NOTE | 2016-11-09 16:16 | Infectious Diseases Prog Note ---
Assessment/Plan Assessment/Plan ASSESSMENT: 86 y/o male with: // Acute on chronic respiratory failure r/o HCAP, CHF - SCx NRF - CT Chest: Bronchiectasis and honeycombing, indicative of end-stage interstitial fibrosis, nonspecific as regards etiology. Subpleural blebs or bullae, could indicate COPD changes. No definite acute pulmonary process. Mediastinal lymphadenopathy. This may be reactive, inflammatory, or neoplastic - CXR 11/05: Bilateral extensive interstitial disease, R>L suspect CHF, However, marked similarity to the prior exam raises possibility that this could also be due to chronic interstitial fibrotic change - elevated BNP - h/o O2-dependent pulmonary, fibrosis - negative: influenza, legionella UAg // Elevated LFTs - hepatitis panel(-) - US: Negative for gallstones or dilated ducts // Acute leukocytosis - worse, afebrile ( after starting steroids ) // CKD3 // Dementia // NKDA // Full Code PLAN: - continue empiric levaquin d# 6, noted zosyn d# 5 added ( ABX d# 6 / 7 ) - taper steroids per pulm - f/u final cultures - monitor CBC, temperatures - monitor BMP - monitor CXR Subjective Allergies: Coded Allergies: No Known Allergies (Unverified , 11/04/16) Subjective remains afebrile. comfortable Objective Vital Signs Last 24 Hour Vital Signs Date Time Temp Pulse Resp B/P Pulse Ox O2 Delivery O2 Flow Rate FiO2 11/09/16 16:00 97.3 65 20 130/72 95 Nasal Cannula 3.0 11/09/16 14:50 73 11/09/16 14:45 72 11/09/16 14:40 73 11/09/16 12:15 97.9 70 20 150/77 99 Room Air 11/09/16 07:59 98.4 66 20 130/64 96 Room Air 11/09/16 07:45 94 Nasal Cannula 2.0 11/09/16 07:45 Nasal Cannula 2.0 28 11/09/16 07:45 81 18 Nasal Cannula 2.0 11/09/16 06:00 66 85 89 11/09/16 04:00 98.8 66 18 121/103 94 Room Air 11/09/16 00:00 98.1 69 18 114/60 94 Room Air 11/08/16 22:00 96 109 112 11/08/16 20:00 97.5 75 18 111/61 96 Room Air 11/08/16 19:46 81 18 Nasal Cannula 2.0 11/08/16 19:45 95 Nasal Cannula 2.0 11/08/16 19:45 Nasal Cannula 2.0 28 Height (Feet): 5 Height (Inches): 8.00 Weight (Pounds): 143 General Appearance: no acute distress Respiratory/Chest: decreased breath sounds Cardiovascular: normal rate, regular rhythm Abdomen: normal bowel sounds, soft, non tender, non distended Laboratory Tests Test 11/09/16 06:35 White Blood Count 13.5 K/UL (4.8-10.8) H Red Blood Count 4.14 M/UL (4.70-6.10) L Hemoglobin 12.9 G/DL (14.2-18.0) L Hematocrit 38.9 % (42.0-52.0) L Mean Corpuscular Volume 94 FL (80-99) Mean Corpuscular Hemoglobin 31.1 PG (27.0-31.0) H Mean Corpuscular Hemoglobin Concent 33.1 G/DL (32.0-36.0) Red Cell Distribution Width 13.3 % (11.6-14.8) Platelet Count 270 K/UL (150-450) Mean Platelet Volume 8.4 FL (6.5-10.1) Neutrophils (%) (Auto) % (45.0-75.0) Lymphocytes (%) (Auto) % (20.0-45.0) Monocytes (%) (Auto) % (1.0-10.0) Eosinophils (%) (Auto) % (0.0-3.0) Basophils (%) (Auto) % (0.0-2.0) Differential Total Cells Counted 100 Neutrophils % (Manual) 89 % (45-75) H Lymphocytes % (Manual) 8 % (20-45) L Monocytes % (Manual) 3 % (1-10) Eosinophils % (Manual) 0 % (0-3) Basophils % (Manual) 0 % (0-2) Band Neutrophils 0 % (0-8) Platelet Estimate Adequate Platelet Morphology Normal Red Blood Cell Morphology Normal Sodium Level 138 mEQ/L (135-145) Potassium Level 3.8 mEQ/L (3.4-4.9) Chloride Level 97 mEQ/L (98-107) L Carbon Dioxide Level 25 mEQ/L (20-30) Anion Gap 16 (5-15) H Blood Urea Nitrogen 18 mg/dL (7-23) Creatinine 1.1 mg/dL (0.7-1.2) Estimat Glomerular Filtration Rate mL/min (>60) Glucose Level 152 mg/dL (74-106) H Uric Acid 4.0 mg/dL (3.0-7.5) Calcium Level 9.0 mg/dL (8.6-10.2) Phosphorus Level 2.8 mg/dL (2.5-4.8) Magnesium Level 2.2 mg/dL (1.7-2.5) Total Bilirubin 0.4 mg/dL (0.0-1.2) Aspartate Amino Transf (AST/SGOT) 35 U/L (5-40) Alanine Aminotransferase (ALT/SGPT) 25 U/L (3-41) Alkaline Phosphatase 92 U/L (40-129) Pro-B-Type Natriuretic Peptide 1455 pg/mL (0-450) H Total Protein 6.7 g/dL (6.6-8.7) Albumin 3.0 g/dL (3.5-5.2) L Globulin 3.7 g/dL Albumin/Globulin Ratio 0.8 (1.0-2.7) L Current Medications Medications (Trade) Dose Ordered Sig/Jackie Route PRN Reason Start Time Stop Time Status Last Admin Dose Admin Acetaminophen (Tylenol) 650 mg Q4H PRN ORAL Fever 11/06/16 15:00 12/06/16 14:59 Albuterol/ Ipratropium (DuoNeb 0.5-3(2.5)mg/3ml) 3 ml Q4H PRN HHN Shortness of Breath 11/06/16 15:00 11/11/16 14:59 Dextrose (Dextrose 50%) STAT PRN IV Hypoglycemia 11/06/16 15:00 12/06/16 14:59 Guaifenesin/ Dextromethorphan (Robitussin DM) 10 ml Q4H PRN ORAL For Cough 11/09/16 00:00 12/09/16 00:00 Heparin Sodium (Porcine) (Heparin 5000 units/ml) 5,000 units EVERY 12 HOURS SUBQ 11/06/16 21:00 12/06/16 20:59 11/09/16 10:04 Levofloxacin (Levaquin) 250 mg DAILY ORAL 11/09/16 09:00 11/12/16 08:59 11/09/16 10:03 Levothyroxine Sodium (Synthroid) 88 mcg ACBREAKFAST ORAL 11/07/16 06:30 12/07/16 06:29 11/09/16 06:16 Memantine (Namenda) 5 mg DAILY ORAL 11/07/16 09:00 12/07/16 08:59 11/09/16 10:03 Methylprednisolone Sodium Succinate (Solu-MEDROL) 60 mg EVERY 6 HOURS IVP 11/07/16 19:00 12/07/16 18:59 11/09/16 12:59 Ondansetron HCl (Zofran) 4 mg Q6H PRN IVP Nausea & Vomiting 11/06/16 15:00 12/06/16 14:59 Piperacillin Sod/ Tazobactam Sod/ Dextrose (Zosyn/D5W) 110 ml @ 27.5 mls/hr EVERY 8 HOURS IVPB 11/06/16 16:00 11/13/16 15:59 11/09/16 12:59 Polyethylene Glycol (Miralax) 17 gm DAILYPRN PRN ORAL Constipation 11/06/16 15:00 12/06/16 14:59 Tamsulosin HCl (Flomax) 0.4 mg BEDTIME ORAL 11/06/16 21:00 12/06/16 20:59 11/07/16 20:33 Temazepam (Restoril) 15 mg HSPRN PRN ORAL Insomnia 11/06/16 17:15 11/13/16 17:14 11/08/16 20:07 JOEL MAURO Nov 09, 2016 16:16
[2016-11-09] MEDS: guaiFENesin DM 100mg/5ml ORAL PRN (16:33)
--- NOTE | 2016-11-09 17:32 | Pulmonology Progress Note ---
Assessment/Plan Problems: (1) Pulmonary fibrosis (2) Interstitial lung disease (3) Respiratory distress (4) Pneumonia (5) Hypoxia (6) COPD (chronic obstructive pulmonary disease) (7) ATN (acute tubular necrosis) (8) Aortic aneurysm (9) Advanced dementia Assessment/Plan add zosyn hold lasix ct chest reviewed, end stage Emphysema taper steroids fast Iv fluids check sputum check cbc bmp in am bun/creatinine decreasing swallow study dc to [facility] if videow swallow study negative Subjective ROS Limited/Unobtainable: No Interval Events: still coughing, with large phlegmn, speech pathologist recommending video s Allergies: Coded Allergies: No Known Allergies (Unverified , 11/04/16) Objective Last 24 Hour Vital Signs Date Time Temp Pulse Resp B/P Pulse Ox O2 Delivery O2 Flow Rate FiO2 11/09/16 16:00 97.3 65 20 130/72 95 Nasal Cannula 3.0 11/09/16 14:50 73 11/09/16 14:45 72 11/09/16 14:40 73 11/09/16 12:15 97.9 70 20 150/77 99 Room Air 11/09/16 07:59 98.4 66 20 130/64 96 Room Air 11/09/16 07:45 94 Nasal Cannula 2.0 11/09/16 07:45 Nasal Cannula 2.0 28 11/09/16 07:45 81 18 Nasal Cannula 2.0 11/09/16 06:00 66 85 89 11/09/16 04:00 98.8 66 18 121/103 94 Room Air 11/09/16 00:00 98.1 69 18 114/60 94 Room Air 11/08/16 22:00 96 109 112 11/08/16 20:00 97.5 75 18 111/61 96 Room Air 11/08/16 19:46 81 18 Nasal Cannula 2.0 11/08/16 19:45 95 Nasal Cannula 2.0 11/08/16 19:45 Nasal Cannula 2.0 28 Intake and Output 11/08/16 11/09/16 19:00 07:00 Intake Total 750 ml 980.0 ml Output Total 450 ml Balance 300 ml 980.0 ml Intake Oral 450 ml 720 ml IV Total 300 ml 260.0 ml Output Urine Total 450 ml # Voids 3 Objective General Appearance: WD/WN, no apparent distress, alert EENT: PERRL/EOMI, normal ENT inspection, TMs normal, hair lose. Neck: non-tender, normal alignment, supple, normal inspection Cardiovascular: normal peripheral pulses, normal rate, regular rhythm, no murmur. 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 Skin: normal pigmentation, warm/dry Laboratory Tests 11/09/16 06:35: White Blood Count 13.5H, Red Blood Count 4.14L, Hemoglobin 12.9L, Hematocrit 38.9L, Mean Corpuscular Volume 94, Mean Corpuscular Hemoglobin 31.1H, Mean Corpuscular Hemoglobin Concent 33.1, Red Cell Distribution Width 13.3, Platelet Count 270, Mean Platelet Volume 8.4, Neutrophils (%) (Auto) , Lymphocytes (%) ( Auto) , Monocytes (%) (Auto) , Eosinophils (%) (Auto) , Basophils (%) (Auto) , Differential Total Cells Counted 100, Neutrophils % (Manual) 89H, Lymphocytes % (Manual) 8L, Monocytes % (Manual) 3, Eosinophils % (Manual) 0, Basophils % ( Manual) 0, Band Neutrophils 0, Platelet Estimate Adequate, Platelet Morphology Normal, Red Blood Cell Morphology Normal, Sodium Level 138, Potassium Level 3.8 , Chloride Level 97L, Carbon Dioxide Level 25, Anion Gap 16H, Blood Urea Nitrogen 18, Creatinine 1.1, Estimat Glomerular Filtration Rate , Glucose Level 152H, Uric Acid 4.0, Calcium Level 9.0, Phosphorus Level 2.8, Magnesium Level 2.2, Total Bilirubin 0.4, Aspartate Amino Transf (AST/SGOT) 35, Alanine Aminotransferase (ALT/SGPT) 25, Alkaline Phosphatase 92, Pro-B-Type Natriuretic Peptide 1455H, Total Protein 6.7, Albumin 3.0L, Globulin 3.7, Albumin/Globulin Ratio 0.8L Current Medications Medications (Trade) Dose Ordered Sig/Jackie Route PRN Reason Start Time Stop Time Status Last Admin Dose Admin Acetaminophen (Tylenol) 650 mg Q4H PRN ORAL Fever 11/06/16 15:00 12/06/16 14:59 Albuterol/ Ipratropium (DuoNeb 0.5-3(2.5)mg/3ml) 3 ml Q4H PRN HHN Shortness of Breath 11/06/16 15:00 11/11/16 14:59 Dextrose (Dextrose 50%) STAT PRN IV Hypoglycemia 11/06/16 15:00 12/06/16 14:59 Guaifenesin/ Dextromethorphan (Robitussin DM) 10 ml Q4H PRN ORAL For Cough 11/09/16 00:00 12/09/16 00:00 11/09/16 16:33 Heparin Sodium (Porcine) (Heparin 5000 units/ml) 5,000 units EVERY 12 HOURS SUBQ 11/06/16 21:00 12/06/16 20:59 11/09/16 10:04 Levofloxacin (Levaquin) 250 mg DAILY ORAL 11/09/16 09:00 11/12/16 08:59 11/09/16 10:03 Levothyroxine Sodium (Synthroid) 88 mcg ACBREAKFAST ORAL 11/07/16 06:30 12/07/16 06:29 11/09/16 06:16 Memantine (Namenda) 5 mg DAILY ORAL 11/07/16 09:00 12/07/16 08:59 11/09/16 10:03 Methylprednisolone Sodium Succinate (Solu-MEDROL) 60 mg EVERY 6 HOURS IVP 11/07/16 19:00 12/07/16 18:59 11/09/16 12:59 Ondansetron HCl (Zofran) 4 mg Q6H PRN IVP Nausea & Vomiting 11/06/16 15:00 12/06/16 14:59 Piperacillin Sod/ Tazobactam Sod/ Dextrose (Zosyn/D5W) 110 ml @ 27.5 mls/hr EVERY 8 HOURS IVPB 11/06/16 16:00 11/13/16 15:59 11/09/16 12:59 Polyethylene Glycol (Miralax) 17 gm DAILYPRN PRN ORAL Constipation 11/06/16 15:00 12/06/16 14:59 Tamsulosin HCl (Flomax) 0.4 mg BEDTIME ORAL 11/06/16 21:00 12/06/16 20:59 11/07/16 20:33 Temazepam (Restoril) 15 mg HSPRN PRN ORAL Insomnia 11/06/16 17:15 11/13/16 17:14 11/08/16 20:07 VERO COLLADO Nov 09, 2016 17:32
[2016-11-09 19:00] VITALS: BP 136/67
[2016-11-09] MEDS: Tamsulosin 0.4mg cap ORAL SCH (22:13)
[2016-11-10] VITALS: BP 125/63
[2016-11-10 04:00] VITALS: BP_SYST 122
[2016-11-10] MEDS: Piperacillin/Tazobactam 3.375 GM in D5W 110 ML IVPB SCH ×2 (05:44→13:17)
[2016-11-10 08:15] VITALS: BP 104/55
[2016-11-10] MEDS ORDERED: Solu-MEDROL 125mg Inj IVP SCH (09:00)
[2016-11-10] MEDS: Memantine 10mg tab ORAL SCH (09:13)
[2016-11-10] MEDS: guaiFENesin DM 100mg/5ml ORAL PRN (09:13)
[2016-11-10] MEDS: Heparin 5000 units/ml inj SUBQ SCH (09:15)
--- NOTE | 2016-11-10 11:05 | General Progress Note ---
Assessment/Plan Status: stable Assessment/Plan s/p Worsening renal failure, admitted with Cr 1.2 , now krupa to 1.7 mainly due to Lasix now lower to 1.5 other conditions as mentioned in PH- Mainly admitted for respiratory insufficiency Plan: no labs today stop Hydration Monitor renal parameters- low dose flomax- avoid nephrotoxics optimize pulmonary status as possible per orders Subjective ROS Limited/Unobtainable: No Allergies: Coded Allergies: No Known Allergies (Unverified , 11/04/16) Objective Last 24 Hour Vital Signs Date Time Temp Pulse Resp B/P Pulse Ox O2 Delivery O2 Flow Rate FiO2 11/10/16 08:15 97.0 66 19 104/55 97 Room Air 11/10/16 07:43 68 18 Nasal Cannula 2.0 28 11/10/16 07:42 68 Nasal Cannula 2.0 28 11/10/16 07:42 Nasal Cannula 2.0 28 11/10/16 06:00 70 70 71 11/10/16 04:00 97.9 59 18 122/ 97 Nasal Cannula 3.0 11/10/16 00:00 97.7 65 20 125/63 95 Nasal Cannula 3.0 11/09/16 22:00 69 71 71 11/09/16 19:56 56 18 Nasal Cannula 2.0 11/09/16 19:56 95 Nasal Cannula 2.0 11/09/16 19:56 Nasal Cannula 2.0 28 11/09/16 19:00 97.0 59 20 136/67 95 Room Air 11/09/16 16:00 97.3 65 20 130/72 95 Nasal Cannula 3.0 11/09/16 14:50 73 11/09/16 14:45 72 11/09/16 14:40 73 11/09/16 12:15 97.9 70 20 150/77 99 Room Air Intake and Output 11/09/16 11/10/16 19:00 07:00 Intake Total 720 ml 240 ml Output Total 750 ml Balance 720 ml -510 ml Intake Oral 720 ml 240 ml Output Urine Total 750 ml # Voids 2 3 # Bowel Movements 1 1 Height (Feet): 5 Height (Inches): 8.00 Weight (Pounds): 143 General Appearance: no apparent distress Objective Physical exam not changed MANOHAR DANIELS Nov 10, 2016 11:05
[2016-11-10 12:15] VITALS: BP 145/81
[2016-11-10] MEDS ORDERED: GUAIFENESIN DM118 M1 ORAL (13:19)
[2016-11-10] MEDS ORDERED: DUONEB 0.5-3(2.53 ML HHN (13:19)
--- NOTE | 2016-11-10 13:51 | Infectious Diseases Prog Note ---
Assessment/Plan Assessment/Plan ASSESSMENT: 86 y/o male with: // Acute on chronic respiratory failure r/o HCAP, CHF - SCx NRF - CT Chest: Bronchiectasis and honeycombing, indicative of end-stage interstitial fibrosis, nonspecific as regards etiology. Subpleural blebs or bullae, could indicate COPD changes. No definite acute pulmonary process. Mediastinal lymphadenopathy. This may be reactive, inflammatory, or neoplastic - CXR 11/05: Bilateral extensive interstitial disease, R>L suspect CHF, However, marked similarity to the prior exam raises possibility that this could also be due to chronic interstitial fibrotic change - elevated BNP - h/o O2-dependent pulmonary, fibrosis - negative: influenza, legionella UAg // Elevated LFTs - hepatitis panel(-) - US: Negative for gallstones or dilated ducts // Acute leukocytosis - worse, afebrile ( after starting steroids ) // CKD3 // Dementia // NKDA // Full Code PLAN: - finishes empiric levaquin d# 7, noted zosyn d# 4 added ( ABX d# 7 / ) today. Monitor pt off of ABX - taper steroids per pulm - monitor CBC, temperatures, re-culture if acute change - monitor BMP - monitor CXR Subjective Allergies: Coded Allergies: No Known Allergies (Unverified , 11/04/16) Subjective remains afebrile. comfortable Objective Vital Signs Last 24 Hour Vital Signs Date Time Temp Pulse Resp B/P Pulse Ox O2 Delivery O2 Flow Rate FiO2 11/10/16 12:15 97.9 55 20 145/81 96 Nasal Cannula 2.0 11/10/16 08:15 97.0 66 19 104/55 97 Room Air 11/10/16 07:43 68 18 Nasal Cannula 2.0 28 11/10/16 07:42 68 Nasal Cannula 2.0 28 11/10/16 07:42 Nasal Cannula 2.0 28 11/10/16 06:00 70 70 71 11/10/16 04:00 97.9 59 18 122/ 97 Nasal Cannula 3.0 11/10/16 00:00 97.7 65 20 125/63 95 Nasal Cannula 3.0 11/09/16 22:00 69 71 71 11/09/16 19:56 56 18 Nasal Cannula 2.0 11/09/16 19:56 95 Nasal Cannula 2.0 11/09/16 19:56 Nasal Cannula 2.0 28 11/09/16 19:00 97.0 59 20 136/67 95 Room Air 11/09/16 16:00 97.3 65 20 130/72 95 Nasal Cannula 3.0 11/09/16 14:50 73 11/09/16 14:45 72 11/09/16 14:40 73 Height (Feet): 5 Height (Inches): 8.00 Weight (Pounds): 143 General Appearance: no acute distress Respiratory/Chest: no respiratory distress Cardiovascular: normal rate, regular rhythm Abdomen: normal bowel sounds, soft, non tender, non distended Current Medications Medications (Trade) Dose Ordered Sig/Jackie Route PRN Reason Start Time Stop Time Status Last Admin Dose Admin Acetaminophen (Tylenol) 650 mg Q4H PRN ORAL Fever 11/06/16 15:00 12/06/16 14:59 Albuterol/ Ipratropium (DuoNeb 0.5-3(2.5)mg/3ml) 3 ml Q4H PRN HHN Shortness of Breath 11/06/16 15:00 11/11/16 14:59 Dextrose (Dextrose 50%) STAT PRN IV Hypoglycemia 11/06/16 15:00 12/06/16 14:59 Guaifenesin/ Dextromethorphan (Robitussin DM) 10 ml Q4H PRN ORAL For Cough 11/09/16 00:00 12/09/16 00:00 11/10/16 09:13 Heparin Sodium (Porcine) (Heparin 5000 units/ml) 5,000 units EVERY 12 HOURS SUBQ 11/06/16 21:00 12/06/16 20:59 11/10/16 09:15 Levofloxacin (Levaquin) 250 mg DAILY ORAL 11/09/16 09:00 11/12/16 08:59 11/10/16 09:13 Levothyroxine Sodium (Synthroid) 88 mcg ACBREAKFAST ORAL 11/07/16 06:30 12/07/16 06:29 11/10/16 06:51 Memantine (Namenda) 5 mg DAILY ORAL 11/07/16 09:00 12/07/16 08:59 11/10/16 09:13 Methylprednisolone Sodium Succinate (Solu-MEDROL) 60 mg DAILY IVP 11/10/16 09:00 12/10/16 08:59 11/10/16 09:13 Ondansetron HCl (Zofran) 4 mg Q6H PRN IVP Nausea & Vomiting 11/06/16 15:00 12/06/16 14:59 Piperacillin Sod/ Tazobactam Sod/ Dextrose (Zosyn/D5W) 110 ml @ 27.5 mls/hr EVERY 8 HOURS IVPB 11/06/16 16:00 11/13/16 15:59 11/10/16 13:17 Polyethylene Glycol (Miralax) 17 gm DAILYPRN PRN ORAL Constipation 11/06/16 15:00 12/06/16 14:59 Tamsulosin HCl (Flomax) 0.4 mg BEDTIME ORAL 11/06/16 21:00 12/06/16 20:59 11/09/16 22:13 Temazepam (Restoril) 15 mg HSPRN PRN ORAL Insomnia 11/06/16 17:15 11/13/16 17:14 11/09/16 22:13 JOEL MAURO Nov 10, 2016 13:51
--- NOTE | 2016-11-11 16:05 | Diagnostic Imaging Report ---
Indications: DYSPNEA Technique: Patient ingested multiple substances under the supervision of speech pathology. Video fluoroscopic recording performed. Total fluoroscopy time 225 seconds. Total dose area product 0.58844 mGycm2 Comparison: none Findings: There is amparo aspiration on the initial ingestion of thin liquid barium, which does not appear to elicit coughing. Subsequent swallows demonstrated some penetration but no aspiration. With ingestion of nectar thick liquid barium, there is trace penetration but no amparo aspiration an episode of. Initiation of deglutition is delayed with honey thick liquid barium, barium pur?e, barium-soaked solid, but no amparo aspiration is evident. Impression: Positive for aspiration of thin liquid barium Please refer to speech pathology report for more detailed analysis
--- NOTE | 2016-11-12 11:11 | Discharge Summary ---
Discharge Summary Hospital Course Date of Admission Nov 04, 2016 at 12:19 Date of Discharge Nov 10, 2016 at 15:45 Admitting Diagnosis HYPOXIA,RESPIRATORY FAILURE HPI Christiano Matute is a 86 year old male who was admitted on Nov 04, 2016 at 12 :19 for Hypoxia,Respiratory Failure Hospital Course [id number] Discharge Discharge Disposition Patient was discharged to SNF/Subacute Facility(03) Discharge Diagnoses: Tatyana Maria NP Nov 12, 2016 11:11
--- NOTE | 2016-11-13 01:49 | Discharge Summary 2 SIG ---
DATE OF ADMISSION: 11/04/2016 DATE OF DISCHARGE: 11/10/2016 CONSULTANTS: 1. Raj Stuart M.D. 2. Alvaro Cerrato M.D. 3. Tyshawn Coello M.D. BRIEF HOSPITAL COURSE: The patient is an 86-year-old male with history of recent pneumonia, chronic kidney disease stage 3, chronic respiratory failure requiring oxygen, pulmonary fibrosis, dementia, descending aortic aneurysm, and cardiomegaly, who was transferred on a non-rebreather mask because of dyspnea and persistent cough with desaturation. The patient was admitted for respiratory treatment. Chest x-ray showed probable congestive heart failure with bilateral lower lobe atelectasis. He was pancultured and was given empiric Levaquin treatment. Dr. Stuart was consulted. Chest CT showed bronchiectasis and honeycombing indicative of end-stage interstitial fibrosis with subpleural blebs or bullae, which could indicate chronic obstructive pulmonary disease changes. Influenza screen was negative. Legionella urine antigen was negative. Sputum culture showed normal respiratory vijay. Zosyn was added to the patient's antibiotic and received seven days of IV Levaquin and Zosyn. Dr. Coello was consulted. ProBNP was 665. The patient's EKG was sinus rhythm with normal leftward axis and nonspecific ST wave changes. Echocardiogram done showed ejection fraction 55% to 60% with normal left ventricular size, function, and wall motion. Troponins were negative. Dr. Cerrato was consulted for worsening renal failure. On admission, creatinine was 1.2, krupa to 1.7. Abdominal ultrasound showed a 17 mm calcification on the left renal sinus, negative for hydronephrosis, and bilateral renal cysts. Worsening creatinine may be secondary to Lasix. Lasix was discontinued. He also had elevated LFTs. Abdominal ultrasound was somewhat limited, however, was negative for gallstones or dilated ducts. Creatinine improved. Steroids were tapered. The patient was discharged back to senior living. FINAL DIAGNOSES: 1. Pulmonary fibrosis. 2. Interstitial lung disease. 3. Respiratory distress. 4. Pneumonia. 5. Acute chronic obstructive pulmonary disease. 6. End-stage emphysema. 7. Acute tubular necrosis. 8. Aortic aneurysm. 9. Advanced dementia. 10. Acute on chronic respiratory failure secondary to pneumonia and congestive heart failure. 11. Elevated liver transaminases. 12. Hypothyroidism. 13. Hyperlipidemia. 14. Dementia. 15. Chronic kidney disease. 16. Acute renal failure, mainly due to Lasix. Edith Cornelius M.D. I have been assigned to dictate discharge summary on this account and I was not involved in the patient's management. Tatyana Maria N.P. DR: RAHEL JOB#: [id number] CC: ANI
--- NOTE | 2016-11-13 13:45 | Cardiology Report ---
APPROVED REPORT EKG Measurement Heart [id number] ND [id number] Normal sinus rhythm Normal ECG
== END 2016-11-10 15:45 | DRG 189 ==
LOC: EDBD 10:01 → EMR 11:34 → 2E 12:19 → EDBEDREQ 12:42 → 2E 11-05 05:41 → 4E 11-06 14:35
DX: J96.21 Acute and chronic respiratory failure with hypoxia (principal); N17.0 Acute kidney failure with tubular necrosis; J18.9 Pneumonia, unspecified organism; J44.1 Chronic obstructive pulmonary disease with (acute) exacerbation; I50.9 Heart failure, unspecified; J84.10 Pulmonary fibrosis, unspecified; Z99.81 Dependence on supplemental oxygen; J98.11 Atelectasis; F02.80 Dementia in other diseases classified elsewhere, unspecified severity, without behavioral disturbance, psychotic disturbance, mood disturbance, and anxiety; I12.9 Hypertensive chronic kidney disease with stage 1 through stage 4 chronic kidney disease, or unspecified chronic kidney disease; E03.9 Hypothyroidism, unspecified; E78.5 Hyperlipidemia, unspecified; N18.3 Chronic kidney disease, stage 3 (moderate); N40.0 Benign prostatic hyperplasia without lower urinary tract symptoms; I71.4 Abdominal aortic aneurysm, without rupture
CPT/HCPCS: 36415; 71010; 71250; 74230; 76700; 80048; 80053; 80061; 80069; 81001; 81003; 82164; 82248; 82436; 82533; 82550; 82962; 82977; 83036; 83605; 83735; 83880; 83930; 83935; 84100; 84133; 84300; 84439; 84443; 84481; 84484; 84550; 85007; 85025; 85610; 85730; 86140; 86705; 86709; 86710; 86803; 87040; 87070; 87081; 87205; 87340; 89050; 93005; 93306; 94640; 94664; 94760; J7620

== ENCOUNTER 2016-11-10 18:14 | Inpatient (IN) | payer MEDICARE, MEDICAID ==
[~2016-11-10] VITALS: Ht 167.6 cm; Wt 72.6 kg
[~2016-11-10 18:14] MED LIST: DUONEB 0.5-3(2.53 ML HHN; GUAIFENESIN DM118 M1 ORAL; LEVOTHYROXINE88 MCG ORAL; NAMENDA5 MG ORAL; SIMVASTATIN5 MG ORAL
--- NOTE | 2016-11-10 19:28 | Emergency Room Report ---
History of Present Illness General Chief Complaint: Dyspnea/Respdistress Source: Patient, Medical Record, EMS Present Illness HPI This patient presents from a detention facility. He is brought in by EMS. There was concerned about difficulty breathing. The patient complains of chest pain. There is no report of fever or chills. There is no reported nausea or vomiting. There is no abdominal pain. The patient was just discharged from [facility] yesterday to the detention facility. He has a known pneumonia and pulmonary fibrosis and is status post respiratory failure. There is no other history available. Patient has a recent history of pneumonia, chronic kidney disease, chronic respiratory failure and pulmonary fibrosis, dementia and congestive heart failure. Allergies: Coded Allergies: No Known Allergies (Unverified , 11/04/16) Patient History Past Medical History: see triage record, old chart reviewed, COPD, dementia, renal disease, other - pulmonary fibrosis, hypothyroid Social History: Denies: alcohol use, drug use, smoking Reviewed Nursing Documentation: PMH: Agreed, PSxH: Agreed Nursing Documentation-PMH Hx COPD: Yes - Dyspnea, CHF Hx Cancer: No History Of Psychiatric Problem: Yes - Dementia Hx Neurological Problems: No Review of Systems All Other Systems: negative except mentioned in HPI Physical Exam Vital Signs Date Time Temp Pulse Resp B/P Pulse Ox O2 Delivery O2 Flow Rate FiO2 11/10/16 18:08 74 24 161/87 100 Non-Rebreather 15.0 Sp02 EP Interpretation: reviewed, normal General Appearance: no apparent distress, alert, GCS 15, non-toxic Head: normocephalic, atraumatic Eyes: bilateral eye PERRL, bilateral eye normal inspection ENT: hearing grossly normal, normal pharynx, no angioedema, normal voice Neck: full range of motion, supple/symm/no masses Respiratory: chest non-tender, lungs clear, normal breath sounds, speaking full sentences Cardiovascular #1: regular rate, rhythm, no edema Gastrointestinal: normal bowel sounds, non tender, soft, non-distended, no guarding, no rebound Rectal: deferred Musculoskeletal: back normal, normal range of motion, non-tender Neurologic: alert, oriented x3, responsive, motor strength/tone normal, sensory intact, speech normal Psychiatric: mood/affect normal, no suicidal/homicidal ideation Skin: warm/dry, well hydrated Medical Decision Making Diagnostic Impression: Primary Impression: Chest pain Additional Impression: Pulmonary fibrosis ER Course This patient had been discharged a detention facility and the facility declined the patient. The patient returned. The patient has been fully worked up as an inpatient at [facility]. He is being seen and managed by a machine ii engraver. He is found to have severe pulmonary fibrosis which is the source of his symptoms. He underwent a full workup to include CT of his chest. Repeat laboratory workup and chest x-ray shows improvement of his chest x-ray and normal/baseline labs. The patient is on antibiotics and steroids. The primary care physician and machine ii engraver Dr. Cornelius would like him returned to the detention facility where he can continue IV antibiotics and steroids. There is no significant change in the patient's medical condition from discharge from the hospital. The patient is return to the detention facility at the request of the primary care physician. Labs Test 11/10/16 18:45 11/10/16 18:55 11/10/16 20:45 Urine Color Yellow Urine Appearance Clear Urine pH 6.5 (4.5-8.0) Urine Specific [place] 1.010 (1.005-1.035) Urine Protein Negative (NEGATIVE) Urine Glucose (UA) Negative (NEGATIVE) Urine Ketones Negative (NEGATIVE) Urine Occult Blood Negative (NEGATIVE) Urine Nitrite Negative (NEGATIVE) Urine Bilirubin Negative (NEGATIVE) Urine Urobilinogen Normal MG/DL (0.0-1.0) Urine Leukocyte Esterase Negative (NEGATIVE) White Blood Count 14.0 K/UL (4.8-10.8) Red Blood Count 4.02 M/UL (4.70-6.10) Hemoglobin 12.5 G/DL (14.2-18.0) Hematocrit 38.6 % (42.0-52.0) Mean Corpuscular Volume 96 FL (80-99) Mean Corpuscular Hemoglobin 31.0 PG (27.0-31.0) Mean Corpuscular Hemoglobin Concent 32.3 G/DL (32.0-36.0) Red Cell Distribution Width 13.1 % (11.6-14.8) Platelet Count 245 K/UL (150-450) Mean Platelet Volume 8.3 FL (6.5-10.1) Neutrophils (%) (Auto) 84.1 % (45.0-75.0) Lymphocytes (%) (Auto) 9.4 % (20.0-45.0) Monocytes (%) (Auto) 6.0 % (1.0-10.0) Eosinophils (%) (Auto) 0.0 % (0.0-3.0) Basophils (%) (Auto) 0.5 % (0.0-2.0) Sodium Level 138 mEQ/L (135-145) Potassium Level 4.7 mEQ/L (3.4-4.9) Chloride Level 98 mEQ/L (98-107) Carbon Dioxide Level 26 mEQ/L (20-30) Anion Gap 14 (5-15) Blood Urea Nitrogen 22 mg/dL (7-23) Creatinine 1.0 mg/dL (0.7-1.2) Estimat Glomerular Filtration Rate mL/min (>60) Glucose Level 128 mg/dL (74-106) Lactic Acid Level 2.10 mmol/L (0.66-2.22) 2.10 mmol/L (0.66-2.22) Calcium Level 8.4 mg/dL (8.6-10.2) Total Bilirubin 0.4 mg/dL (0.0-1.2) Aspartate Amino Transf (AST/SGOT) 61 U/L (5-40) Alanine Aminotransferase (ALT/SGPT) 39 U/L (3-41) Alkaline Phosphatase 90 U/L (40-129) Total Creatine Kinase 55 U/L (38-174) Creatine Kinase MB < 1.5 ng/mL (< 6.7) Creatine Kinase MB Relative Index 2.7 Troponin I < 0.30 ng/mL (<=0.30) Total Protein 6.5 g/dL (6.6-8.7) Albumin 2.8 g/dL (3.5-5.2) Globulin 3.7 g/dL Albumin/Globulin Ratio 0.7 (1.0-2.7) EKG Diagnostic Results Rate: normal Rhythm: NSR ST Segments: no acute changes Rhythm Strip Diag. Results EP Interpretation: yes Rate: 60's Rhythm: NSR, no PVC's, no ectopy Chest X-Ray Diagnostic Results EP Interpretation: Yes Findings: other Number of Views: 1 Other Impression Bilateral patchy opacities. Improved from comparison on 11/05/16. Last Vital Signs Date Time Temp Pulse Resp B/P Pulse Ox O2 Delivery O2 Flow Rate FiO2 11/10/16 18:08 74 24 161/87 100 Non-Rebreather 15.0 Disposition: HOME, SELF-CARE Condition: Stable CHU BONILLA D.O. Nov 10, 2016 19:28
[2016-11-10 19:32] LABS: BASOPHILS % (AUTO) 0.5 % (0.0-2.0); LYMPHOCYTES % (AUTO) 9.4 % (20.0-45.0); MEAN CORPUSCULAR HGB CONC 32.3 G/DL (32.0-36.0); MEAN CORPUSCULAR VOLUME 96 FL (80-99); MEAN PLATELET VOLUME 8.3 FL (6.5-10.1); NEUTROPHILS % (AUTO) 84.1 % (45.0-75.0); PLATELET COUNT 245 K/UL (150-450); RED BLOOD COUNT 4.02 M/UL (4.70-6.10); RED CELL DISTRIBUTION WIDTH 13.1 % (11.6-14.8)
[2016-11-10 19:53] LABS: APPEARANCE,URINE CLEAR; KETONES,URINE NEGATIVE (NEGATIVE); LEUKOCYTE ESTERASE ,URINE NEGATIVE (NEGATIVE); NITRITE,URINE NEGATIVE (NEGATIVE); PH,URINE 6.5 (4.5-8.0); PROTEIN,URINE NEGATIVE (NEGATIVE); UROBILINOGEN,URINE NORMAL MG/DL (0.0-1.0)
[2016-11-10 19:59] LABS: ALANINE AMINOTRANSFERASE 39 U/L (3-41); ALBUMIN/GLOBULIN RATIO 0.7 (1.0-2.7); ANION GAP 14 (5-15); ASPARTATE AMINO TRANSFERASE 61 U/L (5-40); CALCIUM 8.4 mg/dL (8.6-10.2); CARBON DIOXIDE 26 mEQ/L (20-30); CHLORIDE 98 mEQ/L (98-107); HEMOLYSIS 153; POTASSIUM 4.7 mEQ/L (3.4-4.9); SODIUM 138 mEQ/L (135-145); TOTAL PROTEIN 6.5 g/dL (6.6-8.7); TROPONIN I < 0.30 ng/mL (<=0.30)
[2016-11-10 20:04] LABS: REFLEX LACTIC ACID YES OR NO YES
[2016-11-10 20:10] LABS: CKMB < 1.5 ng/mL (< 6.7)
[2016-11-10 21:00] VITALS: BP 166/80
[2016-11-10] MEDS ORDERED: LORazepam Inj 2mg/ml 1ml IV PRN (22:00)
[2016-11-10] MEDS ORDERED: Ketorolac 30mg Inj IV PRN ×2 (22:00→22:18)
[2016-11-10] MEDS ORDERED: Nitroglycerin Subl 0.4mg tab (Bottle Of 25) SL PRN (22:00)
[2016-11-10] MEDS ORDERED: Piperacillin/Tazobactam 2.25 GM in D5W 55 ML IV SCH (22:00)
[2016-11-10] MEDS ORDERED: Morphine Sulfate 2mg/ml Inj IVP PRN (22:00)
[2016-11-10] MEDS ORDERED: Promethazine/Codeine 5ml UD ORAL PRN (22:00)
[2016-11-10 23:30] VITALS: BP 156/84
[2016-11-11] VITALS (10 sets, daily range): BP systolic 116–173; BP diastolic 48–83
[2016-11-11] MEDS: Solu-MEDROL 125mg Inj IV SCH ×4 (00:32→17:31)
[2016-11-11] MEDS ORDERED: D5W 55 ML IV ONE (04:48)
[2016-11-11] MEDS ORDERED: Zosyn 3.375gm inj ONE (04:48)
[2016-11-11] MEDS ORDERED: Tubing IV Cassette IV ONE (04:49)
[2016-11-11] MEDS: Zosyn 3.375gm q8h **Extended infusion IVPB SCH ×6 (04:55→20:08)
[2016-11-11] MEDS: NovoLOG Insulin Flexpen SUBQ SCH ×4 (07:15→20:57)
[2016-11-11] MEDS: Theophylline ER 100mg ORAL SCH ×2 (09:09→20:56)
[2016-11-11] MEDS: Memantine 5 MG TAB ORAL SCH (09:10)
[2016-11-11] MEDS: Heparin 5000 units/ml inj SUBQ SCH ×2 (09:11→20:58)
--- NOTE | 2016-11-11 12:20 | Diagnostic Imaging Report ---
Indication: Chest pain Technique: One view of the chest Comparison: 11/05/2016 Findings: Again demonstrated is bilateral interstitial and alveolar disease, right greater than left, appearing similar to the prior study. This likely reflects chronic end-stage interstitial fibrotic changes described on recent chest CT. No definite superimposed acute infiltrates. The heart size is upper limits of normal Impression: Stable extensive presumed chronic changes, as described, over 5 days. No definite superimposed acute process
--- NOTE | 2016-11-11 12:27 | History and Physical ---
History of Present Illness General Date patient seen: Nov 11, 2016 Reason for Hospitalization: Dyspnea/Respdistress Present Illness HPI 86 year old male with hx of pulmonary fibrosis brought in by paramedics with CC of dyspnea and desaturation, and difficulty breathing. The patient complains of chest pain. The patient was just discharged from [facility] yesterday to the [facility] facility. He has a known pneumonia and pulmonary fibrosis and is status post respiratory failure. Pt is admitted because he needed bipap for some time for his oxygenation in [place]. Allergies: Coded Allergies: No Known Allergies (Unverified , 11/04/16) Medication History Scheduled Levothyroxine Sodium* (Levothyroxine Sodium*), 88 MCG ORAL DAILY, (Reported) Memantine Hcl* (Namenda*), 5 MG ORAL DAILY, (Reported) Simvastatin (Zocor), 5 MG ORAL BEDTIME, (Reported) Scheduled PRN Guaifenesin/Dextromethorphan (Guaifenesin Dm Syrup), 10 ML ORAL Q4H PRN Ipratropium/Albuterol Sulfate (DuoNeb 0.5-3(2.5)mg/3ml), 3 ML HHN Q4H PRN Patient History Healthcare decision maker Resuscitation status Advanced Directive on File Past Medical/Surgical History Past Medical/Surgical History: (1) Pulmonary fibrosis (2) Interstitial lung disease (3) Advanced dementia (4) Aortic aneurysm Review of Systems All Other Systems: negative except mentioned in HPI Physical Exam General Appearance: WD/WN Lines, tubes and drains: peripheral HEENT: atraumatic Neck: non-tender, normal alignment Respiratory/Chest: rhonchi - left, rhonchi - right Cardiovascular/Chest: normal peripheral pulses, normal rate Abdomen: normal bowel sounds, non tender Genitourinary/Rectal: normal genital exam, heme negative stool Extremities: normal range of motion Skin Exam: normal pigmentation Neurologic: skilled helper II-XII grossly normal Last 24 Hour Vital Signs Date Time Temp Pulse Resp B/P Pulse Ox O2 Delivery O2 Flow Rate FiO2 11/11/16 10:30 51 20 125/69 97 Nasal Cannula 3.0 11/11/16 08:30 24 99 Nasal Cannula 4.0 11/11/16 08:00 24 97 Nasal Cannula 4.0 11/11/16 07:30 70 26 144/83 Non-Rebreather 11/11/16 07:01 74 20 100 Facial 100 11/11/16 06:59 74 24 154/76 100 Bi-pap 100 11/11/16 05:05 66 23 100 Facial 100 11/11/16 05:00 54 20 173/79 100 Bi-pap 100 11/11/16 03:14 87 49 92 Facial 100 11/11/16 03:02 100 11/11/16 02:54 84 26 140/78 89 Simple Mask 10.0 11/11/16 01:31 56 24 116/48 98 Simple Mask 6.0 11/10/16 23:30 62 20 156/84 96 Simple Mask 10.0 11/10/16 21:00 97.8 61 18 166/80 100 Non-Rebreather 15.0 11/10/16 18:30 74 24 Non-Rebreather 15.0 11/10/16 18:08 74 24 161/87 100 Non-Rebreather 15.0 Intake and Output 11/10/16 11/11/16 19:00 07:00 Output Total 300 ml Balance -300 ml Output Urine Total 300 ml # Voids 2 # Bowel Movements 1 Laboratory Tests Test 11/10/16 18:45 11/10/16 18:55 11/10/16 20:45 Urine Color Yellow Urine Appearance Clear Urine pH 6.5 (4.5-8.0) Urine Specific [place] 1.010 (1.005-1.035) Urine Protein Negative (NEGATIVE) Urine Glucose (UA) Negative (NEGATIVE) Urine Ketones Negative (NEGATIVE) Urine Occult Blood Negative (NEGATIVE) Urine Nitrite Negative (NEGATIVE) Urine Bilirubin Negative (NEGATIVE) Urine Urobilinogen Normal MG/DL (0.0-1.0) Urine Leukocyte Esterase Negative (NEGATIVE) White Blood Count 14.0 K/UL (4.8-10.8) H Red Blood Count 4.02 M/UL (4.70-6.10) L Hemoglobin 12.5 G/DL (14.2-18.0) L Hematocrit 38.6 % (42.0-52.0) L Mean Corpuscular Volume 96 FL (80-99) Mean Corpuscular Hemoglobin 31.0 PG (27.0-31.0) Mean Corpuscular Hemoglobin Concent 32.3 G/DL (32.0-36.0) Red Cell Distribution Width 13.1 % (11.6-14.8) Platelet Count 245 K/UL (150-450) Mean Platelet Volume 8.3 FL (6.5-10.1) Neutrophils (%) (Auto) 84.1 % (45.0-75.0) H Lymphocytes (%) (Auto) 9.4 % (20.0-45.0) L Monocytes (%) (Auto) 6.0 % (1.0-10.0) Eosinophils (%) (Auto) 0.0 % (0.0-3.0) Basophils (%) (Auto) 0.5 % (0.0-2.0) Sodium Level 138 mEQ/L (135-145) Potassium Level 4.7 mEQ/L (3.4-4.9) Chloride Level 98 mEQ/L (98-107) Carbon Dioxide Level 26 mEQ/L (20-30) Anion Gap 14 (5-15) Blood Urea Nitrogen 22 mg/dL (7-23) Creatinine 1.0 mg/dL (0.7-1.2) Estimat Glomerular Filtration Rate mL/min (>60) Glucose Level 128 mg/dL (74-106) H Lactic Acid Level 2.10 mmol/L (0.66-2.22) 2.10 mmol/L (0.66-2.22) Calcium Level 8.4 mg/dL (8.6-10.2) L Total Bilirubin 0.4 mg/dL (0.0-1.2) Aspartate Amino Transf (AST/SGOT) 61 U/L (5-40) H Alanine Aminotransferase (ALT/SGPT) 39 U/L (3-41) Alkaline Phosphatase 90 U/L (40-129) Total Creatine Kinase 55 U/L (38-174) Creatine Kinase MB < 1.5 ng/mL (< 6.7) Creatine Kinase MB Relative Index 2.7 Troponin I < 0.30 ng/mL (<=0.30) Total Protein 6.5 g/dL (6.6-8.7) L Albumin 2.8 g/dL (3.5-5.2) L Globulin 3.7 g/dL Albumin/Globulin Ratio 0.7 (1.0-2.7) L Height (Feet): 5 Height (Inches): 6.00 Weight (Pounds): 160 Medications Current Medications Medications (Trade) Dose Ordered Sig/Jackie Route PRN Reason Start Time Stop Time Status Last Admin Dose Admin Albuterol/ Ipratropium (DuoNeb 0.5-3(2.5)mg/3ml) 3 ml Q4H PRN HHN dyspnea 11/10/16 22:00 11/15/16 21:59 Dextrose (Dextrose 50%) STAT PRN IV Hypoglycemia 11/10/16 22:00 12/10/16 21:59 Heparin Sodium (Porcine) (Heparin 5000 units/ml) 5,000 units EVERY 12 HOURS SUBQ 11/11/16 09:00 12/11/16 08:59 11/11/16 09:11 Insulin Aspart (NovoLOG) BEFORE MEALS AND HS SUBQ 11/11/16 06:30 12/11/16 06:29 Ketorolac Tromethamine 15 mg 15 mg Q8H PRN IV moderate pain 4-6 11/10/16 22:18 11/15/16 21:59 Levothyroxine Sodium (Synthroid) 88 mcg DAILY@0630 ORAL 11/11/16 06:30 12/11/16 06:29 11/11/16 09:09 Lorazepam (Ativan 2mg/ml 1ml) 0.5 mg Q4H PRN IV For Anxiety 11/10/16 22:00 11/17/16 21:59 Memantine (Namenda) 5 mg DAILY ORAL 11/11/16 09:00 12/11/16 08:59 11/11/16 09:10 Methylprednisolone Sodium Succinate (Solu-MEDROL) 60 mg EVERY 6 HOURS IV 11/11/16 00:00 12/11/16 00:00 11/11/16 06:21 Morphine Sulfate (Morphine Sulfate) 2 mg Q4H PRN IVP severe pain 7-10 11/10/16 22:00 11/17/16 21:59 Nitroglycerin (Ntg) 0.4 mg Q5M X 3 DOSES PRN SL Prn Chest Pain 11/10/16 22:00 12/10/16 21:59 Ondansetron HCl (Zofran) 4 mg Q6H PRN IVP Nausea & Vomiting 11/10/16 22:00 12/10/16 21:59 Piperacillin Sod/ Tazobactam Sod/ Dextrose (Zosyn/D5W) 110 ml @ 27.5 mls/hr Q8H IVPB 11/11/16 04:00 11/18/16 03:59 11/11/16 04:55 Promethazine HCl/ Codeine (Phenergan with Codeine) 5 ml Q6H PRN ORAL cough 11/10/16 22:00 12/10/16 21:59 Temazepam (Restoril) 15 mg HSPRN PRN ORAL Insomnia 11/10/16 22:00 11/17/16 21:59 Theophylline (Simeon-Dur) 100 mg EVERY 12 HOURS ORAL 11/11/16 09:00 12/11/16 08:59 11/11/16 09:09 Assessment/Plan Problem List: (1) Acute respiratory failure ICD Codes: J96.00 - Acute respiratory failure, unspecified whether with hypoxia or hypercapnia SNOMED: 55666847 (2) COPD (chronic obstructive pulmonary disease) ICD Codes: J44.9 - Chronic obstructive pulmonary disease, unspecified SNOMED: 25760360 (3) ATN (acute tubular necrosis) ICD Codes: N17.0 - Acute kidney failure with tubular necrosis SNOMED: 56899542 (4) Dyspnea ICD Codes: R06.00 - Dyspnea, unspecified SNOMED: 713087734 (5) Pulmonary fibrosis ICD Codes: J84.10 - Pulmonary fibrosis, unspecified SNOMED: 19029371 (6) Chest pain ICD Codes: R07.9 - Chest pain, unspecified SNOMED: 82695862 (7) Aortic aneurysm ICD Codes: I71.9 - Aortic aneurysm of unspecified site, without rupture SNOMED: 81548340 (8) Interstitial lung disease ICD Codes: J84.9 - Interstitial pulmonary disease, unspecified SNOMED: 29944598, 667862556 (9) Advanced dementia ICD Codes: F03.90 - Unspecified dementia without behavioral disturbance SNOMED: 32096189 Assessment/Plan abx. steroids check sputum agin trial of Lidocain inhalation titrate fio2 to sat of 92% chest PT cxr in a few days. VERO COLLADO Nov 11, 2016 12:26
[2016-11-11] MEDS ORDERED: Lidocaine 1% MPF 10mg/ml 5ml HHN PRN (14:45)
--- NOTE | 2016-11-11 14:50 | Consultation ---
Consult Note Consult Note ID RE-CONSULT: Dict# [id number] Assessment/Plan ASSESSMENT: 86 y/o male with: // Acute on chronic respiratory failure 2/2 pulmonary fibrosis SP BiPAP - SCx NRF, repeat pending - CXR 11/10: Stable extensive presumed chronic changes, as described, over 5 days. No definite superimposed acute process - CT Chest 11/06: Bronchiectasis and honeycombing, indicative of end-stage interstitial fibrosis, nonspecific as regards etiology. Subpleural blebs or bullae, could indicate COPD changes. No definite acute pulmonary process. Mediastinal lymphadenopathy. This may be reactive, inflammatory, or neoplastic - h/o O2-dependent pulmonary, fibrosis - negative: influenza, legionella UAg // Acute leukocytosis - stable, afebrile ( after starting steroids ) // CKD3 // Elevated LFTs - improved, hepatitis panel(-) - US: Negative for gallstones or dilated ducts // Advance dementia // NKDA // Full Code PLAN: - continue empiric zosyn d# 5 for now, may limit soon ( 11/10 SP levaquin d# 7 ) - taper steroids per pulm - monitor CBC, temperatures, re-culture if acute change - monitor BMP - monitor CXR Thanks! Will follow JOEL MAURO Nov 11, 2016 14:50
[2016-11-11] MEDS: DuoNeb 0.5-3(2.5)mg/3ml neb HHN PRN (15:46)
--- NOTE | 2016-11-11 20:30 | Consultation ---
DATE OF CONSULTATION: 11/11/2016 INFECTIOUS DISEASE CONSULTATION REQUESTING PHYSICIAN: Edith Cornelius M.D. REASON FOR CONSULTATION: Acute on chronic respiratory failure. HISTORY OF PRESENT ILLNESS: This is an 86-year-old male with a history of known end-stage pulmonary fibrosis and advanced dementia, who was discharged yesterday and [facility] with [facility] distress. The patient required BiPAP for a short time in the emergency room. He is now back on nasal cannula. He has a stable mild leukocytosis presumed due to steroids and is afebrile. Chest x-ray is unchanged. Repeat sputum cultures pending. He has been resumed on IV Zosyn, and ID now consulted to assist in management. PAST MEDICAL HISTORY: 1. End-stage pulmonary fibrosis. 2. Chronic kidney disease, stage 3. 3. Advanced dementia. 4. Aortic aneurysm. PAST SURGICAL HISTORY: None. FAMILY HISTORY: Noncontributory. SOCIAL HISTORY: No active tobacco, alcohol, or illicit drug abuse. [facility] resident of a [facility]. ALLERGIES: No known drug allergies. MEDICATIONS: 1. Zosyn. 2. Namenda. 3. Subcutaneous heparin. 4. Theophylline. 5. Synthroid. 6. Solu-Medrol. REVIEW OF SYSTEMS: Unable to obtain. PHYSICAL EXAMINATION: VITAL SIGNS: Maximum temperature 97.9, blood pressure 144/82, heart rate 67, and respiratory rate 19. Saturating 91% on Ventimask. GENERAL: No apparent distress. Nontoxic appearing. CARDIOVASCULAR: Regular rate and rhythm. No murmurs. PULMONARY: Decreased breath sounds bilaterally. ABDOMEN: Bowel sounds present. Soft, nondistended, and nontender. EXTREMITIES: No edema. LABORATORY DATA: White blood cell count of 14, essentially stable from previous 13.5; hemoglobin 12.5; and platelets 245,000. Sodium 138, potassium 4.7, chloride 98, bicarbonate 26, BUN 22, and creatinine 1. Lactic acid 2.1. AST 61, ALT 39, and alkaline phosphatase 90. Total bilirubin 0.4. Albumin 2.8. Troponin negative x1. Urinalysis negative. MICROBIOLOGY: 1. November 10, 2016 - blood culture pending. 2. November 10, 2016 - sputum culture pending. IMAGIN. November 10, 2016 - chest x-ray, stable, presumed chronic changes. No definite superimposed acute process. ASSESSMENT: 1. Acute on chronic respiratory failure secondary to end-stage pulmonary fibrosis status post BiPAP. Sputum culture previously grew normal respiratory vijay. Repeat culture is pending. Chest x-ray shows stable chronic changes with no definite superimposed acute process. 2. Leukocytosis, stable and afebrile, on steroids. 3. Chronic kidney disease, stage 3. 4. Advanced dementia. 5. No known drug allergies. 6. Full Code. PLAN: 1. Continue empiric Zosyn, day #5 for now and . 2. Taper steroids per Pulmonary. 3. Monitor CBC and temperatures, and re-culture if acute change. 4. Monitor BMP. 5. Monitor chest x-ray. Thank you. We will follow. Raj Stuart M.D. DR: LEXIE JOB#: [id number] CC: Edith Cornelius M.D.; Fax#: [phone] Caraballo M.D; Fax#: [phone]
[2016-11-12] VITALS: BP 114/75
[2016-11-12] MEDS: Solu-MEDROL 125mg Inj IV SCH ×4 (00:28→19:08)
[2016-11-12 04:00] VITALS: BP 126/71
[2016-11-12] MEDS: Zosyn 3.375gm q8h **Extended infusion IVPB SCH ×6 (04:09→21:40)
[2016-11-12] MEDS: DuoNeb 0.5-3(2.5)mg/3ml neb HHN PRN ×2 (04:36→15:58)
[2016-11-12] MEDS: NovoLOG Insulin Flexpen SUBQ SCH ×4 (06:18→21:46)
[2016-11-12 08:00] VITALS: BP 123/75
[2016-11-12] MEDS: Memantine 5 MG TAB ORAL SCH (08:12)
[2016-11-12] MEDS: Theophylline ER 100mg ORAL SCH ×2 (08:12→21:41)
[2016-11-12] MEDS: Heparin 5000 units/ml inj SUBQ SCH ×2 (08:15→21:48)
[2016-11-12 12:00] VITALS: BP 107/58
--- NOTE | 2016-11-12 14:40 | Infectious Diseases Prog Note ---
Assessment/Plan Assessment/Plan ASSESSMENT: 86 y/o male with: // GPC clusters bacteremia 3/4 ?source - C&S pending // Acute on chronic respiratory failure 10/29 pulmonary fibrosis SP BiPAP-->VM - SCx NRF, repeat pending - CXR 11/10: Stable extensive presumed chronic changes, as described, over 5 days. No definite superimposed acute process - CT Chest 11/06: Bronchiectasis and honeycombing, indicative of end-stage interstitial fibrosis, nonspecific as regards etiology. Subpleural blebs or bullae, could indicate COPD changes. No definite acute pulmonary process. Mediastinal lymphadenopathy. This may be reactive, inflammatory, or neoplastic - h/o O2-dependent pulmonary, fibrosis - negative: influenza, legionella UAg // Acute leukocytosis - stable, afebrile. No repeat CBC ( after starting steroids ) // CKD3 // Elevated LFTs - improved, hepatitis panel(-) - US: Negative for gallstones or dilated ducts // Advance dementia // NKDA // Full Code PLAN: - continue empiric zosyn d# 6 / 7, add IV vancomycin d# 1 ( 11/10 SP levaquin d# 7 ) - taper steroids per pulm - f/u C&S, repeat BCx in AM - monitor CBC, temperatures - monitor BMP - monitor CXR Subjective Allergies: Coded Allergies: No Known Allergies (Unverified , 11/04/16) Subjective remains afebrile BCx GPC clusters Objective Vital Signs Last 24 Hour Vital Signs Date Time Temp Pulse Resp B/P Pulse Ox O2 Delivery O2 Flow Rate FiO2 11/12/16 12:00 97.7 79 30 107/58 91 Venturi Mask 10.0 40 11/12/16 08:00 87 11/12/16 08:00 97.9 85 30 123/75 91 Venturi Mask 10.0 40 11/12/16 06:35 94 Venturi Mask 8.0 40 11/12/16 06:35 88 18 Venturi Mask 8.0 40 11/12/16 06:35 Venturi Mask 8.0 40 11/12/16 04:44 82 22 93 Venturi Mask 8.0 40 11/12/16 04:36 89 26 91 Venturi Mask 8.0 40 11/12/16 04:00 97.3 73 20 126/71 92 Venturi Mask 10.0 40 11/12/16 00:00 97.5 90 20 114/75 92 Venturi Mask 10.0 40 11/12/16 00:00 74 11/11/16 20:00 98.3 80 20 121/66 92 Venturi Mask 40 11/11/16 20:00 60 11/11/16 19:00 93 Venturi Mask 8.0 40 11/11/16 19:00 Venturi Mask 8.0 40 11/11/16 16:00 100 11/11/16 16:00 97.7 82 20 119/63 91 Venturi Mask 40 11/11/16 15:45 89 24 90 Venturi Mask 8.0 40 11/11/16 15:40 96 24 90 Venturi Mask 8.0 40 Height (Feet): 5 Height (Inches): 6.00 Weight (Pounds): 160 General Appearance: no acute distress Respiratory/Chest: decreased breath sounds Cardiovascular: normal rate, regular rhythm Abdomen: normal bowel sounds, soft, non tender, non distended Microbiology Date/Time Source Procedure Growth Status 11/10/16 19:05 Blood Blood Culture - Preliminary Resulted 11/10/16 18:45 Blood Blood Culture - Preliminary Resulted Current Medications Medications (Trade) Dose Ordered Sig/Jackie Route PRN Reason Start Time Stop Time Status Last Admin Dose Admin Albuterol/ Ipratropium (DuoNeb 0.5-3(2.5)mg/3ml) 3 ml Q4H PRN HHN dyspnea 11/10/16 22:00 11/15/16 21:59 11/12/16 04:36 Dextrose (Dextrose 50%) STAT PRN IV Hypoglycemia 11/10/16 22:00 12/10/16 21:59 Heparin Sodium (Porcine) (Heparin 5000 units/ml) 5,000 units EVERY 12 HOURS SUBQ 11/11/16 09:00 12/11/16 08:59 11/12/16 08:15 Insulin Aspart (NovoLOG) BEFORE MEALS AND HS SUBQ 11/11/16 06:30 12/11/16 06:29 11/12/16 12:14 Ketorolac Tromethamine 15 mg 15 mg Q8H PRN IV moderate pain 4-6 11/10/16 22:18 11/15/16 21:59 Levothyroxine Sodium (Synthroid) 88 mcg DAILY@0630 ORAL 11/11/16 06:30 12/11/16 06:29 11/12/16 06:13 Lidocaine (Xylocaine 1% MPF 5ml) 10 ml EVERY 4 HOURS PRN HHN cough 11/11/16 14:45 12/11/16 14:44 Lorazepam (Ativan 2mg/ml 1ml) 0.5 mg Q4H PRN IV For Anxiety 11/10/16 22:00 11/17/16 21:59 Memantine (Namenda) 5 mg DAILY ORAL 11/11/16 09:00 12/11/16 08:59 11/12/16 08:12 Methylprednisolone Sodium Succinate (Solu-MEDROL) 60 mg EVERY 6 HOURS IV 11/11/16 00:00 12/11/16 00:00 11/12/16 12:11 Morphine Sulfate (Morphine Sulfate) 2 mg Q4H PRN IVP severe pain 7-10 11/10/16 22:00 11/17/16 21:59 Nitroglycerin (Ntg) 0.4 mg Q5M X 3 DOSES PRN SL Prn Chest Pain 11/10/16 22:00 12/10/16 21:59 Ondansetron HCl (Zofran) 4 mg Q6H PRN IVP Nausea & Vomiting 11/10/16 22:00 12/10/16 21:59 Piperacillin Sod/ Tazobactam Sod/ Dextrose (Zosyn/D5W) 110 ml @ 27.5 mls/hr Q8H IVPB 11/11/16 04:00 11/18/16 03:59 11/12/16 12:14 Promethazine HCl/ Codeine (Phenergan with Codeine) 5 ml Q6H PRN ORAL cough 11/10/16 22:00 12/10/16 21:59 Temazepam (Restoril) 15 mg HSPRN PRN ORAL Insomnia 11/10/16 22:00 11/17/16 21:59 Theophylline (Simeon-Dur) 100 mg EVERY 12 HOURS ORAL 11/11/16 09:00 12/11/16 08:59 11/12/16 08:12 JOEL MAUROb 16, 2017 14:40
--- NOTE | 2016-11-12 15:49 | Pulmonology Progress Note ---
Assessment/Plan Problems: (1) Acute respiratory failure (2) COPD (chronic obstructive pulmonary disease) (3) ATN (acute tubular necrosis) (4) Dyspnea (5) Pulmonary fibrosis (6) Chest pain (7) Aortic aneurysm (8) Interstitial lung disease (9) Advanced dementia Assessment/Plan add lasix cxr in am add low dose methadone for dyspnea check sputum continue antibiotics and steroids Subjective ROS Limited/Unobtainable: No Constitutional: Reports: no symptoms HEENT: Repors: no symptoms Respiratory: Reports: no symptoms Cardiovascular: Reports: no symptoms Allergies: Coded Allergies: No Known Allergies (Unverified , 11/04/16) Objective Last 24 Hour Vital Signs Date Time Temp Pulse Resp B/P Pulse Ox O2 Delivery O2 Flow Rate FiO2 11/12/16 12:00 97.7 79 30 107/58 91 Venturi Mask 10.0 40 11/12/16 08:00 87 11/12/16 08:00 97.9 85 30 123/75 91 Venturi Mask 10.0 40 11/12/16 06:35 94 Venturi Mask 8.0 40 11/12/16 06:35 88 18 Venturi Mask 8.0 40 11/12/16 06:35 Venturi Mask 8.0 40 11/12/16 04:44 82 22 93 Venturi Mask 8.0 40 11/12/16 04:36 89 26 91 Venturi Mask 8.0 40 11/12/16 04:00 97.3 73 20 126/71 92 Venturi Mask 10.0 40 11/12/16 00:00 97.5 90 20 114/75 92 Venturi Mask 10.0 40 11/12/16 00:00 74 11/11/16 20:00 98.3 80 20 121/66 92 Venturi Mask 40 11/11/16 20:00 60 11/11/16 19:00 93 Venturi Mask 8.0 40 11/11/16 19:00 Venturi Mask 8.0 40 11/11/16 16:00 100 11/11/16 16:00 97.7 82 20 119/63 91 Venturi Mask 40 11/11/16 15:45 89 24 90 Venturi Mask 8.0 40 Intake and Output 11/11/16 11/12/16 19:00 07:00 Intake Total 310 ml 192.5 ml Output Total 600 ml 500 ml Balance -290 ml -307.5 ml Intake Oral 200 ml IV Total 110 ml 192.5 ml Output Urine Total 600 ml 500 ml # Voids 2 # Bowel Movements 1 Objective still on 40% fio2, face mask Lines, tubes and drains: peripheral HEENT: normocephalic, atraumatic Neck: non-tender, normal alignment Respiratory/Chest: rhonchi - left, rhonchi - right, expiratory wheezing Cardiovascular/Chest: normal peripheral pulses, regular rhythm Abdomen: normal bowel sounds, non tender, hyperactive bowel sounds Genitourinary/Rectal: normal rectal exam Extremities: normal range of motion, non-tender General Appearance: WD/WN Microbiology Date/Time Source Procedure Growth Status 11/10/16 19:05 Blood Blood Culture - Preliminary Resulted 11/10/16 18:45 Blood Blood Culture - Preliminary Resulted Current Medications Medications (Trade) Dose Ordered Sig/Jackie Route PRN Reason Start Time Stop Time Status Last Admin Dose Admin Albuterol/ Ipratropium (DuoNeb 0.5-3(2.5)mg/3ml) 3 ml Q4H PRN HHN dyspnea 11/10/16 22:00 11/15/16 21:59 11/12/16 04:36 Dextrose (Dextrose 50%) STAT PRN IV Hypoglycemia 11/10/16 22:00 12/10/16 21:59 Heparin Sodium (Porcine) (Heparin 5000 units/ml) 5,000 units EVERY 12 HOURS SUBQ 11/11/16 09:00 12/11/16 08:59 11/12/16 08:15 Insulin Aspart (NovoLOG) BEFORE MEALS AND HS SUBQ 11/11/16 06:30 12/11/16 06:29 11/12/16 12:14 Ketorolac Tromethamine 15 mg 15 mg Q8H PRN IV moderate pain 4-6 11/10/16 22:18 11/15/16 21:59 Levothyroxine Sodium (Synthroid) 88 mcg DAILY@0630 ORAL 11/11/16 06:30 12/11/16 06:29 11/12/16 06:13 Lidocaine (Xylocaine 1% MPF 5ml) 10 ml EVERY 4 HOURS PRN HHN cough 11/11/16 14:45 12/11/16 14:44 Lorazepam (Ativan 2mg/ml 1ml) 0.5 mg Q4H PRN IV For Anxiety 11/10/16 22:00 11/17/16 21:59 Memantine (Namenda) 5 mg DAILY ORAL 11/11/16 09:00 12/11/16 08:59 11/12/16 08:12 Methylprednisolone Sodium Succinate (Solu-MEDROL) 60 mg EVERY 6 HOURS IV 11/11/16 00:00 12/11/16 00:00 11/12/16 12:11 Morphine Sulfate (Morphine Sulfate) 2 mg Q4H PRN IVP severe pain 7-10 11/10/16 22:00 11/17/16 21:59 Nitroglycerin (Ntg) 0.4 mg Q5M X 3 DOSES PRN SL Prn Chest Pain 11/10/16 22:00 12/10/16 21:59 Ondansetron HCl (Zofran) 4 mg Q6H PRN IVP Nausea & Vomiting 11/10/16 22:00 12/10/16 21:59 Piperacillin Sod/ Tazobactam Sod/ Dextrose (Zosyn/D5W) 110 ml @ 27.5 mls/hr Q8H IVPB 11/11/16 04:00 11/18/16 03:59 11/12/16 12:14 Promethazine HCl/ Codeine (Phenergan with Codeine) 5 ml Q6H PRN ORAL cough 11/10/16 22:00 12/10/16 21:59 Temazepam (Restoril) 15 mg HSPRN PRN ORAL Insomnia 11/10/16 22:00 11/17/16 21:59 Theophylline (Simeon-Dur) 100 mg EVERY 12 HOURS ORAL 11/11/16 09:00 12/11/16 08:59 11/12/16 08:12 Vancomycin HCl 1 ea 1 ea DAILY PRN MISC Per rx protocol 11/12/16 14:45 12/12/16 14:44 Vancomycin HCl/ Dextrose (Vancomycin/D5W) 325 ml @ 162.5 mls/ hr Q24H IVPB 11/12/16 16:00 11/17/16 15:59 VERO COLLADO Nov 12, 2016 15:49
[2016-11-12 16:00] VITALS: BP 149/84
[2016-11-12] MEDS: Vancomycin 1.5 GM in D5W 325 ML IVPB SCH (17:04)
[2016-11-12 20:00] VITALS: BP 121/71
[2016-11-12] MEDS: Lidocaine 1% MPF 10mg/ml 5ml HHN SCH (23:40)
[2016-11-13] VITALS: BP 133/75
[2016-11-13] MEDS: Solu-MEDROL 125mg Inj IV SCH ×4 (00:41→17:27)
[2016-11-13 04:00] VITALS: BP 117/68
[2016-11-13] MEDS: Zosyn 3.375gm q8h **Extended infusion IVPB SCH ×6 (04:02→21:21)
[2016-11-13 05:49] LABS: MEAN CORPUSCULAR HEMOGLOBIN 30.8 PG (27.0-31.0); MEAN CORPUSCULAR HGB CONC 32.7 G/DL (32.0-36.0); MEAN CORPUSCULAR VOLUME 94 FL (80-99); MEAN PLATELET VOLUME 8.3 FL (6.5-10.1); PLATELET COUNT 203 K/UL (150-450); RED BLOOD COUNT 4.21 M/UL (4.70-6.10); RED CELL DISTRIBUTION WIDTH 13.5 % (11.6-14.8); WHITE BLOOD COUNT 15.7 K/UL (4.8-10.8)
[2016-11-13] MEDS: NovoLOG Insulin Flexpen SUBQ SCH ×4 (05:57→20:43)
[2016-11-13 06:26] LABS: ALANINE AMINOTRANSFERASE 30 U/L (3-41); ALBUMIN/GLOBULIN RATIO 0.7 (1.0-2.7); ANION GAP 19 (5-15); ASPARTATE AMINO TRANSFERASE 38 U/L (5-40); CALCIUM 8.2 mg/dL (8.6-10.2); CARBON DIOXIDE 23 mEQ/L (20-30); CHLORIDE 95 mEQ/L (98-107); HEMOLYSIS 30; POTASSIUM 3.4 mEQ/L (3.4-4.9); SODIUM 137 mEQ/L (135-145); TOTAL PROTEIN 5.9 g/dL (6.6-8.7)
[2016-11-13] MEDS: Lidocaine 1% MPF 10mg/ml 5ml HHN SCH ×2 (07:01→23:15)
[2016-11-13 08:00] VITALS: BP 133/72
[2016-11-13] MEDS: Theophylline ER 100mg ORAL SCH ×2 (08:17→20:41)
[2016-11-13] MEDS: Heparin 5000 units/ml inj SUBQ SCH ×2 (08:17→20:42)
[2016-11-13] MEDS: Memantine 5 MG TAB ORAL SCH (08:17)
[2016-11-13] MEDS: DuoNeb 0.5-3(2.5)mg/3ml neb HHN PRN (08:23)
[2016-11-13 08:29] LABS: BAND NEUTROPHILS % (MANUAL) 0 % (0-8); BASOPHILS % (MANUAL) 0 % (0-2); EOSINOPHILS % (MANUAL) 0 % (0-3); LYMPHOCYTES % (MANUAL) 10 % (20-45); NEUTROPHILS % (MANUAL) 81 % (45-75); PLATELET ESTIMATE ADEQUATE; PLATELET MORPHOLOGY NORMAL; TOTAL CELLS COUNTED 100
[2016-11-13 08:30] LABS: HYPOCHROMASIA 1+
--- NOTE | 2016-11-13 11:56 | Cardiology Report ---
APPROVED REPORT EKG Measurement Heart [id number] Normal sinus rhythm Normal ECG
[2016-11-13 12:00] VITALS: BP 128/64
--- NOTE | 2016-11-13 12:18 | Pulmonology Progress Note ---
Assessment/Plan Problems: (1) Acute respiratory failure (2) COPD (chronic obstructive pulmonary disease) (3) ATN (acute tubular necrosis) (4) Dyspnea (5) Pulmonary fibrosis (6) Chest pain (7) Aortic aneurysm (8) Interstitial lung disease (9) Advanced dementia Assessment/Plan add lasix cxr today showing to change BNP is elevated dose methadone for dyspnea check sputum continue antibiotics and steroids K supplement Subjective ROS Limited/Unobtainable: No Interval Events: still short of breath, Allergies: Coded Allergies: No Known Allergies (Unverified , 11/04/16) Objective Last 24 Hour Vital Signs Date Time Temp Pulse Resp B/P Pulse Ox O2 Delivery O2 Flow Rate FiO2 11/13/16 08:24 Nasal Cannula 5.0 40 11/13/16 08:24 86 21 91 Nasal Cannula 5.0 40 11/13/16 08:24 87 20 90 Nasal Cannula 5.0 40 11/13/16 08:24 90 Venturi Mask 5.0 40 11/13/16 08:24 87 20 Nasal Cannula 5.0 40 11/13/16 08:00 104 11/13/16 08:00 97.7 79 22 133/72 90 Venturi Mask 55 11/13/16 04:00 96.3 74 20 117/68 94 Venturi Mask 55 11/13/16 03:38 79 11/13/16 00:00 97.7 74 20 133/75 98 Venturi Mask 55 11/12/16 23:41 75 11/12/16 20:00 97.7 85 19 121/71 98 Venturi Mask 55 11/12/16 20:00 86 11/12/16 19:51 98 Venturi Mask 14.0 55 11/12/16 19:51 93 20 Venturi Mask 14.0 55 11/12/16 19:51 Venturi Mask 14.0 55 11/12/16 16:21 85 26 92 Venturi Mask 14.0 55 11/12/16 16:00 98 11/12/16 16:00 97.9 88 18 149/84 97 11/12/16 15:58 82 28 90 Venturi Mask 8.0 40 Intake and Output 11/12/16 11/13/16 19:00 07:00 Intake Total 355.0 ml 340 ml Output Total 350 ml 400 ml Balance 5.0 ml -60 ml Intake Oral 300 ml 340 ml IV Total 55.0 ml Output Urine Total 350 ml 400 ml # Voids 4 # Bowel Movements 2 Objective still on 40% fio2, face mask Lines, tubes and drains: peripheral HEENT: normocephalic, atraumatic Neck: non-tender, normal alignment Respiratory/Chest: rhonchi - left, rhonchi - right, expiratory wheezing Cardiovascular/Chest: normal peripheral pulses, regular rhythm Abdomen: normal bowel sounds, non tender, hyperactive bowel sounds Genitourinary/Rectal: normal rectal exam Extremities: normal range of motion, non-tender Microbiology Date/Time Source Procedure Growth Status 11/10/16 19:05 Blood Blood Culture - Preliminary Staphylococcus Sp Coag Neg Resulted 11/10/16 18:45 Blood Blood Culture - Preliminary Staphylococcus Sp Coag Neg Resulted 11/11/16 06:50 Nasal Nares MRSA Culture - Final NO METHICILLIN RESISTANT STAPH AUREUS... Complete 11/11/16 06:50 Rectum VRE Culture - Final Enterococcus Faecium - Vre Complete Laboratory Tests 11/13/16 03:30: White Blood Count 15.7H, Red Blood Count 4.21L, Hemoglobin 13.0L, Hematocrit 39.6L, Mean Corpuscular Volume 94, Mean Corpuscular Hemoglobin 30.8, Mean Corpuscular Hemoglobin Concent 32.7, Red Cell Distribution Width 13.5, Platelet Count 203, Mean Platelet Volume 8.3, Neutrophils (%) (Auto) , Lymphocytes (%) ( Auto) , Monocytes (%) (Auto) , Eosinophils (%) (Auto) , Basophils (%) (Auto) , Differential Total Cells Counted 100, Neutrophils % (Manual) 81H, Lymphocytes % (Manual) 10L, Monocytes % (Manual) 9, Eosinophils % (Manual) 0, Basophils % ( Manual) 0, Band Neutrophils 0, Platelet Estimate Adequate, Platelet Morphology Normal, Hypochromasia 1+, Sodium Level 137, Potassium Level 3.4, Chloride Level 95L, Carbon Dioxide Level 23, Anion Gap 19H, Blood Urea Nitrogen 25H, Creatinine 1.0, Estimat Glomerular Filtration Rate , Glucose Level 152H, Calcium Level 8.2L, Total Bilirubin 0.7, Aspartate Amino Transf (AST/SGOT) 38, Alanine Aminotransferase (ALT/SGPT) 30, Alkaline Phosphatase 84, Pro-B-Type Natriuretic Peptide 1830H, Total Protein 5.9L, Albumin 2.6L, Globulin 3.3, Albumin/Globulin Ratio 0.7L Current Medications Medications (Trade) Dose Ordered Sig/Jackie Route PRN Reason Start Time Stop Time Status Last Admin Dose Admin Albuterol/ Ipratropium (DuoNeb 0.5-3(2.5)mg/3ml) 3 ml Q4H PRN HHN dyspnea 11/10/16 22:00 11/15/16 21:59 11/13/16 08:23 Dextrose (Dextrose 50%) STAT PRN IV Hypoglycemia 11/10/16 22:00 12/10/16 21:59 Furosemide (Lasix) 20 mg EVERY 12 HOURS IV 11/12/16 17:00 12/12/16 16:59 11/13/16 08:18 Heparin Sodium (Porcine) (Heparin 5000 units/ml) 5,000 units EVERY 12 HOURS SUBQ 11/11/16 09:00 12/11/16 08:59 11/13/16 08:17 Insulin Aspart (NovoLOG) BEFORE MEALS AND HS SUBQ 11/11/16 06:30 12/11/16 06:29 11/13/16 05:57 Ketorolac Tromethamine 15 mg 15 mg Q8H PRN IV moderate pain 4-6 11/10/16 22:18 11/15/16 21:59 Levothyroxine Sodium (Synthroid) 88 mcg DAILY@0630 ORAL 11/11/16 06:30 12/11/16 06:29 11/13/16 06:16 Lidocaine (Xylocaine 1% MPF 5ml) 10 ml Q8HRT HHN 11/12/16 23:00 12/12/16 22:59 Lorazepam (Ativan 2mg/ml 1ml) 0.5 mg Q4H PRN IV For Anxiety 11/10/16 22:00 11/17/16 21:59 Memantine (Namenda) 5 mg DAILY ORAL 11/11/16 09:00 12/11/16 08:59 11/13/16 08:17 Methadone HCl (Methadone HCl) 2.5 mg EVERY 8 HOURS ORAL 11/12/16 16:30 11/19/16 16:29 11/13/16 06:15 Methylprednisolone Sodium Succinate (Solu-MEDROL) 60 mg EVERY 6 HOURS IV 11/11/16 00:00 12/11/16 00:00 11/13/16 06:14 Morphine Sulfate (Morphine Sulfate) 2 mg Q4H PRN IVP severe pain 7-10 11/10/16 22:00 11/17/16 21:59 Nitroglycerin (Ntg) 0.4 mg Q5M X 3 DOSES PRN SL Prn Chest Pain 11/10/16 22:00 12/10/16 21:59 Ondansetron HCl (Zofran) 4 mg Q6H PRN IVP Nausea & Vomiting 11/10/16 22:00 12/10/16 21:59 Piperacillin Sod/ Tazobactam Sod/ Dextrose (Zosyn/D5W) 110 ml @ 27.5 mls/hr Q8H IVPB 11/11/16 04:00 11/18/16 03:59 11/13/16 04:02 Promethazine HCl/ Codeine (Phenergan with Codeine) 5 ml Q6H PRN ORAL cough 11/10/16 22:00 12/10/16 21:59 Temazepam (Restoril) 15 mg HSPRN PRN ORAL Insomnia 11/10/16 22:00 11/17/16 21:59 11/12/16 21:40 Theophylline (Simeon-Dur) 100 mg EVERY 12 HOURS ORAL 11/11/16 09:00 12/11/16 08:59 11/13/16 08:17 Vancomycin HCl 1 ea 1 ea DAILY PRN MISC Per rx protocol 11/12/16 14:45 12/12/16 14:44 Vancomycin HCl/ Dextrose (Vancomycin/D5W) 325 ml @ 162.5 mls/ hr Q24H IVPB 11/12/16 16:00 11/17/16 15:59 11/12/16 17:04 VERO COLLADO Nov 13, 2016 12:18
--- NOTE | 2016-11-13 13:11 | Infectious Diseases Prog Note ---
Assessment/Plan Assessment/Plan ASSESSMENT: 86 y/o male with: // CONS bacteremia 3/4 ?source - repeat BCx pending // Acute on chronic respiratory failure 10/29 pulmonary fibrosis SP BiPAP-->VM - SCx NRF, repeat pending - CXR 11/10: Stable extensive presumed chronic changes, as described, over 5 days. No definite superimposed acute process - CT Chest 11/06: Bronchiectasis and honeycombing, indicative of end-stage interstitial fibrosis, nonspecific as regards etiology. Subpleural blebs or bullae, could indicate COPD changes. No definite acute pulmonary process. Mediastinal lymphadenopathy. This may be reactive, inflammatory, or neoplastic - h/o O2-dependent pulmonary, fibrosis - negative: influenza, legionella UAg // Acute leukocytosis - stable, afebrile ( after starting steroids ) // CKD3 // Elevated LFTs - improved, hepatitis panel(-) - US: Negative for gallstones or dilated ducts // Advance dementia // NKDA // Full Code PLAN: - finishes zosyn d# 7 / 7 today, continue IV vancomycin d# 2 ( 11/10 SP levaquin d# 7 ) - taper steroids per pulm - f/u cultures - monitor CBC, temperatures - monitor BMP - monitor CXR Subjective Allergies: Coded Allergies: No Known Allergies (Unverified , 11/04/16) Subjective remains afebrile BCx CONS Objective Vital Signs Last 24 Hour Vital Signs Date Time Temp Pulse Resp B/P Pulse Ox O2 Delivery O2 Flow Rate FiO2 11/13/16 08:24 Nasal Cannula 5.0 40 11/13/16 08:24 86 21 91 Nasal Cannula 5.0 40 11/13/16 08:24 87 20 90 Nasal Cannula 5.0 40 11/13/16 08:24 90 Venturi Mask 5.0 40 11/13/16 08:24 87 20 Nasal Cannula 5.0 40 11/13/16 08:00 104 11/13/16 08:00 97.7 79 22 133/72 90 Venturi Mask 55 11/13/16 04:00 96.3 74 20 117/68 94 Venturi Mask 55 11/13/16 03:38 79 11/13/16 00:00 97.7 74 20 133/75 98 Venturi Mask 55 11/12/16 23:41 75 11/12/16 20:00 97.7 85 19 121/71 98 Venturi Mask 55 11/12/16 20:00 86 11/12/16 19:51 98 Venturi Mask 14.0 55 11/12/16 19:51 93 20 Venturi Mask 14.0 55 11/12/16 19:51 Venturi Mask 14.0 55 11/12/16 16:21 85 26 92 Venturi Mask 14.0 55 11/12/16 16:00 98 11/12/16 16:00 97.9 88 18 149/84 97 11/12/16 15:58 82 28 90 Venturi Mask 8.0 40 Height (Feet): 5 Height (Inches): 6.00 Weight (Pounds): 160 General Appearance: no acute distress Respiratory/Chest: decreased breath sounds Cardiovascular: normal rate, regular rhythm Abdomen: normal bowel sounds, soft, non tender, non distended Microbiology Date/Time Source Procedure Growth Status 11/10/16 19:05 Blood Blood Culture - Preliminary Staphylococcus Sp Coag Neg Resulted 11/10/16 18:45 Blood Blood Culture - Preliminary Staphylococcus Sp Coag Neg Resulted 11/11/16 06:50 Nasal Nares MRSA Culture - Final NO METHICILLIN RESISTANT STAPH AUREUS... Complete 11/11/16 06:50 Rectum VRE Culture - Final Enterococcus Faecium - Vre Complete Laboratory Tests Test 11/13/16 03:30 White Blood Count 15.7 K/UL (4.8-10.8) H Red Blood Count 4.21 M/UL (4.70-6.10) L Hemoglobin 13.0 G/DL (14.2-18.0) L Hematocrit 39.6 % (42.0-52.0) L Mean Corpuscular Volume 94 FL (80-99) Mean Corpuscular Hemoglobin 30.8 PG (27.0-31.0) Mean Corpuscular Hemoglobin Concent 32.7 G/DL (32.0-36.0) Red Cell Distribution Width 13.5 % (11.6-14.8) Platelet Count 203 K/UL (150-450) Mean Platelet Volume 8.3 FL (6.5-10.1) Neutrophils (%) (Auto) % (45.0-75.0) Lymphocytes (%) (Auto) % (20.0-45.0) Monocytes (%) (Auto) % (1.0-10.0) Eosinophils (%) (Auto) % (0.0-3.0) Basophils (%) (Auto) % (0.0-2.0) Differential Total Cells Counted 100 Neutrophils % (Manual) 81 % (45-75) H Lymphocytes % (Manual) 10 % (20-45) L Monocytes % (Manual) 9 % (1-10) Eosinophils % (Manual) 0 % (0-3) Basophils % (Manual) 0 % (0-2) Band Neutrophils 0 % (0-8) Platelet Estimate Adequate Platelet Morphology Normal Hypochromasia 1+ Sodium Level 137 mEQ/L (135-145) Potassium Level 3.4 mEQ/L (3.4-4.9) Chloride Level 95 mEQ/L (98-107) L Carbon Dioxide Level 23 mEQ/L (20-30) Anion Gap 19 (5-15) H Blood Urea Nitrogen 25 mg/dL (7-23) H Creatinine 1.0 mg/dL (0.7-1.2) Estimat Glomerular Filtration Rate mL/min (>60) Glucose Level 152 mg/dL (74-106) H Calcium Level 8.2 mg/dL (8.6-10.2) L Total Bilirubin 0.7 mg/dL (0.0-1.2) Aspartate Amino Transf (AST/SGOT) 38 U/L (5-40) Alanine Aminotransferase (ALT/SGPT) 30 U/L (3-41) Alkaline Phosphatase 84 U/L (40-129) Pro-B-Type Natriuretic Peptide 1830 pg/mL (0-450) H Total Protein 5.9 g/dL (6.6-8.7) L Albumin 2.6 g/dL (3.5-5.2) L Globulin 3.3 g/dL Albumin/Globulin Ratio 0.7 (1.0-2.7) L Current Medications Medications (Trade) Dose Ordered Sig/Jackie Route PRN Reason Start Time Stop Time Status Last Admin Dose Admin Albuterol/ Ipratropium (DuoNeb 0.5-3(2.5)mg/3ml) 3 ml Q4H PRN HHN dyspnea 11/10/16 22:00 11/15/16 21:59 11/13/16 08:23 Dextrose (Dextrose 50%) STAT PRN IV Hypoglycemia 11/10/16 22:00 12/10/16 21:59 Furosemide (Lasix) 20 mg EVERY 12 HOURS IV 11/12/16 17:00 12/12/16 16:59 11/13/16 08:18 Heparin Sodium (Porcine) (Heparin 5000 units/ml) 5,000 units EVERY 12 HOURS SUBQ 11/11/16 09:00 12/11/16 08:59 11/13/16 08:17 Insulin Aspart (NovoLOG) BEFORE MEALS AND HS SUBQ 11/11/16 06:30 12/11/16 06:29 11/13/16 12:20 Ketorolac Tromethamine 15 mg 15 mg Q8H PRN IV moderate pain 4-6 11/10/16 22:18 11/15/16 21:59 Levothyroxine Sodium (Synthroid) 88 mcg DAILY@0630 ORAL 11/11/16 06:30 12/11/16 06:29 11/13/16 06:16 Lidocaine (Xylocaine 1% MPF 5ml) 10 ml Q8HRT HHN 11/12/16 23:00 12/12/16 22:59 Lorazepam (Ativan 2mg/ml 1ml) 0.5 mg Q4H PRN IV For Anxiety 11/10/16 22:00 11/17/16 21:59 Memantine (Namenda) 5 mg DAILY ORAL 11/11/16 09:00 12/11/16 08:59 11/13/16 08:17 Methadone HCl (Methadone HCl) 2.5 mg EVERY 8 HOURS ORAL 11/12/16 16:30 11/19/16 16:29 11/13/16 06:15 Methylprednisolone Sodium Succinate (Solu-MEDROL) 60 mg EVERY 6 HOURS IV 11/11/16 00:00 12/11/16 00:00 11/13/16 12:19 Morphine Sulfate (Morphine Sulfate) 2 mg Q4H PRN IVP severe pain 7-10 11/10/16 22:00 11/17/16 21:59 Nitroglycerin (Ntg) 0.4 mg Q5M X 3 DOSES PRN SL Prn Chest Pain 11/10/16 22:00 12/10/16 21:59 Ondansetron HCl (Zofran) 4 mg Q6H PRN IVP Nausea & Vomiting 11/10/16 22:00 12/10/16 21:59 Piperacillin Sod/ Tazobactam Sod/ Dextrose (Zosyn/D5W) 110 ml @ 27.5 mls/hr Q8H IVPB 11/11/16 04:00 11/18/16 03:59 11/13/16 12:19 Potassium Chloride (K-Dur) 20 meq DAILY ORAL 11/14/16 09:00 12/14/16 08:59 Promethazine HCl/ Codeine (Phenergan with Codeine) 5 ml Q6H PRN ORAL cough 11/10/16 22:00 12/10/16 21:59 Temazepam (Restoril) 15 mg HSPRN PRN ORAL Insomnia 11/10/16 22:00 11/17/16 21:59 11/12/16 21:40 Theophylline (Simeon-Dur) 100 mg EVERY 12 HOURS ORAL 11/11/16 09:00 12/11/16 08:59 11/13/16 08:17 Vancomycin HCl 1 ea 1 ea DAILY PRN MISC Per rx protocol 11/12/16 14:45 12/12/16 14:44 Vancomycin HCl/ Dextrose (Vancomycin/D5W) 325 ml @ 162.5 mls/ hr Q24H IVPB 11/12/16 16:00 11/17/16 15:59 11/12/16 17:04 JOEL MAURO Nov 13, 2016 13:11
[2016-11-13] MEDS: Vancomycin 1.5 GM in D5W 325 ML IVPB SCH (16:30)
[2016-11-13 16:55] VITALS: BP 131/74
[2016-11-13] MEDS ORDERED: Tubing IV Secondary IV ONE (16:55)
[2016-11-13] MEDS ORDERED: NS 275ml ONE (16:55)
[2016-11-13 20:00] VITALS: BP 137/75
[2016-11-14] VITALS: BP 132/79
[2016-11-14] MEDS: Solu-MEDROL 125mg Inj IV SCH ×4 (02:22→17:37)
[2016-11-14 04:00] VITALS: BP 117/73
[2016-11-14] MEDS: DuoNeb 0.5-3(2.5)mg/3ml neb HHN PRN ×2 (04:23→16:29)
[2016-11-14 05:22] LABS: MEAN CORPUSCULAR HEMOGLOBIN 30.8 PG (27.0-31.0); MEAN CORPUSCULAR HGB CONC 32.6 G/DL (32.0-36.0); MEAN CORPUSCULAR VOLUME 94 FL (80-99); MEAN PLATELET VOLUME 8.9 FL (6.5-10.1); PLATELET COUNT 234 K/UL (150-450); RED BLOOD COUNT 4.58 M/UL (4.70-6.10); RED CELL DISTRIBUTION WIDTH 13.9 % (11.6-14.8); WHITE BLOOD COUNT 19.3 K/UL (4.8-10.8)
[2016-11-14 05:53] LABS: ALANINE AMINOTRANSFERASE 32 U/L (3-41); ALBUMIN/GLOBULIN RATIO 0.9 (1.0-2.7); ANION GAP 25 (5-15); ASPARTATE AMINO TRANSFERASE 33 U/L (5-40); CALCIUM 8.6 mg/dL (8.6-10.2); CARBON DIOXIDE 25 mEQ/L (20-30); CHLORIDE 92 mEQ/L (98-107); CREATININE 1.5 mg/dL (0.7-1.2); HEMOLYSIS 3; POTASSIUM 2.9 mEQ/L (3.4-4.9); SODIUM 142 mEQ/L (135-145); TOTAL PROTEIN 6.7 g/dL (6.6-8.7)
[2016-11-14] MEDS: NovoLOG Insulin Flexpen SUBQ SCH ×4 (06:09→20:43)
[2016-11-14] MEDS: Lidocaine 1% MPF 10mg/ml 5ml HHN SCH ×3 (07:00→23:00)
[2016-11-14 08:00] VITALS: BP 117/68
[2016-11-14] MEDS ORDERED: Ketorolac 30mg Inj IV PRN (08:00)
[2016-11-14 08:18] LABS: BAND NEUTROPHILS % (MANUAL) 0 % (0-8); BASOPHILS % (MANUAL) 1 % (0-2); EOSINOPHILS % (MANUAL) 1 % (0-3); LYMPHOCYTES % (MANUAL) 4 % (20-45); NEUTROPHILS % (MANUAL) 86 % (45-75); PLATELET ESTIMATE ADEQUATE; PLATELET MORPHOLOGY NORMAL; TOTAL CELLS COUNTED 100
[2016-11-14] MEDS: Memantine 5 MG TAB ORAL SCH (09:13)
[2016-11-14] MEDS: Theophylline ER 100mg ORAL SCH ×2 (09:13→20:43)
[2016-11-14] MEDS: Heparin 5000 units/ml inj SUBQ SCH ×2 (09:18→20:43)
[2016-11-14 09:35] LABS: ABG PCO2 39.6 mmHg (35.0-45.0)
[2016-11-14 09:36] LABS: ABG ALLEN TEST POSITIVE; ABG BASE EXCESS 6.5
--- NOTE | 2016-11-14 10:31 | Pulmonology Progress Note ---
Assessment/Plan Problems: (1) Acute respiratory failure (2) COPD (chronic obstructive pulmonary disease) (3) ATN (acute tubular necrosis) (4) Dyspnea (5) Pulmonary fibrosis (6) Chest pain (7) Aortic aneurysm (8) Interstitial lung disease (9) Advanced dementia Assessment/Plan cxr today showing to change BNP is elevated dose methadone for dyspnea check sputum continue antibiotics and steroids K supplement Subjective ROS Limited/Unobtainable: Yes Allergies: Coded Allergies: No Known Allergies (Unverified , 11/04/16) Objective Last 24 Hour Vital Signs Date Time Temp Pulse Resp B/P Pulse Ox O2 Delivery O2 Flow Rate FiO2 11/14/16 07:17 Nasal Cannula 5.0 11/14/16 07:14 Nasal Cannula 5.0 11/14/16 07:13 Nasal Cannula 5.0 11/14/16 07:13 90 Nasal Cannula 5.0 11/14/16 07:12 76 20 Nasal Cannula 5.0 11/14/16 04:24 92 20 92 Nasal Cannula 5.0 40 11/14/16 04:23 92 20 92 Nasal Cannula 5.0 40 11/14/16 04:00 97.4 92 24 117/73 93 Nasal Cannula 5.0 11/14/16 03:34 101 11/14/16 00:00 97.5 71 24 132/79 93 Nasal Cannula 5.0 11/13/16 23:18 78 18 92 Nasal Cannula 5.0 40 11/13/16 23:17 80 18 91 Nasal Cannula 5.0 40 11/13/16 20:00 97.5 70 24 137/75 93 Nasal Cannula 5.0 11/13/16 19:07 73 11/13/16 18:50 Nasal Cannula 5.0 40 11/13/16 18:49 91 Nasal Cannula 5.0 40 11/13/16 18:48 71 20 Nasal Cannula 5.0 40 11/13/16 16:55 97.9 90 20 131/74 94 Mechanical Ventilator 5.0 11/13/16 16:00 76 11/13/16 12:00 97.5 104 30 128/64 90 Venturi Mask 55 Intake and Output 11/13/16 11/14/16 19:00 07:00 Intake Total 515.0 ml 702.5 ml Output Total 550 ml 650 ml Balance -35.0 ml 52.5 ml Intake Oral 80 ml 675 ml IV Total 435.0 ml 27.5 ml Output Urine Total 550 ml 650 ml # Voids 1 6 Objective still on 100% fio2, face mask Lines, tubes and drains: peripheral HEENT: normocephalic, atraumatic Neck: non-tender, normal alignment Respiratory/Chest: rhonchi - left, rhonchi - right, expiratory wheezing Cardiovascular/Chest: normal peripheral pulses, regular rhythm Abdomen: normal bowel sounds, non tender, hyperactive bowel sounds Genitourinary/Rectal: normal rectal exam Extremities: normal range of motion, non-tender Microbiology Date/Time Source Procedure Growth Status 11/13/16 03:00 Sputum Expectorated Gram Stain - Final Resulted 11/13/16 03:00 Sputum Expectorated Sputum Culture Pending Resulted Laboratory Tests 11/14/16 05:00: White Blood Count 19.3H, Red Blood Count 4.58L, Hemoglobin 14.1L, Hematocrit 43.2, Mean Corpuscular Volume 94, Mean Corpuscular Hemoglobin 30.8, Mean Corpuscular Hemoglobin Concent 32.6, Red Cell Distribution Width 13.9, Platelet Count 234, Mean Platelet Volume 8.9, Neutrophils (%) (Auto) , Lymphocytes (%) ( Auto) , Monocytes (%) (Auto) , Eosinophils (%) (Auto) , Basophils (%) (Auto) , Differential Total Cells Counted 100, Neutrophils % (Manual) 86H, Lymphocytes % (Manual) 4L, Monocytes % (Manual) 8, Eosinophils % (Manual) 1, Basophils % ( Manual) 1, Band Neutrophils 0, Platelet Estimate Adequate, Platelet Morphology Normal, Red Blood Cell Morphology Normal, Sodium Level 142, Potassium Level 2.9L , Chloride Level 92L, Carbon Dioxide Level 25, Anion Gap 25H, Blood Urea Nitrogen 34H, Creatinine 1.5H, Estimat Glomerular Filtration Rate , Glucose Level 187H, Calcium Level 8.6, Total Bilirubin 0.8, Aspartate Amino Transf (AST/ SGOT) 33, Alanine Aminotransferase (ALT/SGPT) 32, Alkaline Phosphatase 100, Pro- B-Type Natriuretic Peptide 1395H, Total Protein 6.7, Albumin 3.2L, Globulin 3.5 , Albumin/Globulin Ratio 0.9L 11/14/16 09:25: Arterial Blood pH 7.490H, Arterial Blood Partial Pressure CO2 39.6, Arterial Blood Partial Pressure O2 63.2L, Arterial Blood HCO3 30.1H, Arterial Blood Oxygen Saturation 92.1, Arterial Blood Base Excess 6.5, Bryn Test Positive Current Medications Medications (Trade) Dose Ordered Sig/Jackie Route PRN Reason Start Time Stop Time Status Last Admin Dose Admin Albuterol/ Ipratropium (DuoNeb 0.5-3(2.5)mg/3ml) 3 ml Q4H PRN HHN dyspnea 11/14/16 08:00 11/19/16 07:59 Dextrose (Dextrose 50%) STAT PRN IV Hypoglycemia 11/10/16 22:00 12/10/16 21:59 Heparin Sodium (Porcine) (Heparin 5000 units/ml) 5,000 units EVERY 12 HOURS SUBQ 11/11/16 09:00 12/11/16 08:59 11/14/16 09:18 Insulin Aspart (NovoLOG) BEFORE MEALS AND HS SUBQ 11/11/16 06:30 12/11/16 06:29 11/14/16 06:09 Ketorolac Tromethamine (Toradol 30mg) 15 mg Q8H PRN IV Moderate Pain (Pain Scale 4-6) 11/14/16 08:00 11/18/16 07:59 Levothyroxine Sodium (Synthroid) 88 mcg DAILY@0630 ORAL 11/11/16 06:30 12/11/16 06:29 11/14/16 06:17 Lidocaine (Xylocaine 1% MPF 5ml) 10 ml Q8HRT HHN 11/12/16 23:00 12/12/16 22:59 11/13/16 23:15 Lorazepam (Ativan 2mg/ml 1ml) 0.5 mg Q4H PRN IV For Anxiety 11/10/16 22:00 11/17/16 21:59 Memantine (Namenda) 5 mg DAILY ORAL 11/11/16 09:00 12/11/16 08:59 11/14/16 09:13 Methadone HCl (Methadone HCl) 2.5 mg EVERY 8 HOURS ORAL 11/12/16 16:30 11/19/16 16:29 11/14/16 06:17 Methylprednisolone Sodium Succinate (Solu-MEDROL) 60 mg EVERY 6 HOURS IV 11/11/16 00:00 12/11/16 00:00 11/14/16 06:16 Morphine Sulfate (Morphine Sulfate) 2 mg Q4H PRN IVP severe pain 7-10 11/10/16 22:00 11/17/16 21:59 Nitroglycerin (Ntg) 0.4 mg Q5M X 3 DOSES PRN SL Prn Chest Pain 11/10/16 22:00 12/10/16 21:59 Ondansetron HCl (Zofran) 4 mg Q6H PRN IVP Nausea & Vomiting 11/10/16 22:00 12/10/16 21:59 Potassium Chloride (K-Dur) 20 meq DAILY ORAL 11/14/16 09:00 12/14/16 08:59 11/14/16 09:13 Promethazine HCl/ Codeine (Phenergan with Codeine) 5 ml Q6H PRN ORAL cough 11/10/16 22:00 12/10/16 21:59 Temazepam (Restoril) 15 mg HSPRN PRN ORAL Insomnia 11/10/16 22:00 11/17/16 21:59 11/13/16 22:26 Theophylline (Simeon-Dur) 100 mg EVERY 12 HOURS ORAL 11/11/16 09:00 12/11/16 08:59 11/14/16 09:13 Vancomycin HCl 1 ea 1 ea DAILY PRN MISC Per rx protocol 11/12/16 14:45 12/12/16 14:44 Vancomycin HCl/ Dextrose (Vancomycin/D5W) 325 ml @ 162.5 mls/ hr Q24H IVPB 11/12/16 16:00 11/17/16 15:59 11/13/16 16:30 VERO COLLADO Nov 14, 2016 10:31
[2016-11-14 12:00] VITALS: BP 120/62
[2016-11-14] MEDS: Vancomycin 1.5 GM in D5W 325 ML IVPB SCH (15:58)
[2016-11-14 16:00] VITALS: BP 127/77
[2016-11-14 20:00] VITALS: BP 128/76
[2016-11-15] VITALS: BP 142/72
[2016-11-15] MEDS: Solu-MEDROL 125mg Inj IV SCH ×4 (00:39→21:37)
[2016-11-15] MEDS: DuoNeb 0.5-3(2.5)mg/3ml neb HHN PRN ×3 (00:56→20:46)
[2016-11-15 04:00] VITALS: BP 134/85
[2016-11-15 04:35] LABS: MEAN CORPUSCULAR HEMOGLOBIN 31.4 PG (27.0-31.0); MEAN CORPUSCULAR HGB CONC 33.7 G/DL (32.0-36.0); MEAN CORPUSCULAR VOLUME 93 FL (80-99); PLATELET COUNT 191 K/UL (150-450); RED BLOOD COUNT 4.05 M/UL (4.70-6.10); RED CELL DISTRIBUTION WIDTH 13.6 % (11.6-14.8); WHITE BLOOD COUNT 21.3 K/UL (4.8-10.8)
[2016-11-15 05:02] LABS: ALANINE AMINOTRANSFERASE 26 U/L (3-41); ALBUMIN/GLOBULIN RATIO 0.9 (1.0-2.7); ANION GAP 15 (5-15); ASPARTATE AMINO TRANSFERASE 29 U/L (5-40); CALCIUM 8.2 mg/dL (8.6-10.2); CARBON DIOXIDE 31 mEQ/L (20-30); CHLORIDE 94 mEQ/L (98-107); CREATININE 1.1 mg/dL (0.7-1.2); HEMOLYSIS 5; POTASSIUM 3.3 mEQ/L (3.4-4.9); SODIUM 140 mEQ/L (135-145); TOTAL PROTEIN 5.9 g/dL (6.6-8.7)
[2016-11-15] MEDS: NovoLOG Insulin Flexpen SUBQ SCH ×4 (06:06→21:39)
[2016-11-15] MEDS: Lidocaine 1% MPF 10mg/ml 5ml HHN SCH ×3 (07:00→22:35)
[2016-11-15 08:00] VITALS: BP 123/68
--- NOTE | 2016-11-15 08:01 | Pulmonology Progress Note ---
Assessment/Plan Assessment/Plan ASSESSMENT Acute hypoxemic hypercapnic respiratory failure in requiring BiPAP on chronic respiratory failure Interstitial lung disease chronic hypoxemia ( home O2 dependent) bacteremia + SCON Pulmonary fibrosis ATN/ARF-resolved DM Advanced dementia PLAN OF CARE DOO status O2, HHN ABG today wean from NRM as tolerated to keep sat above 92% IV steroids abx, ID follows, blood + SCON, repeated cx 1/ again positive , sputum cx negative UA benign trial of theophylline antitussive prn BS management with SS of insulin DVT prophylaxis pain management bowel regimen case discussed and evaluated by supervising physician Subjective Allergies: Coded Allergies: No Known Allergies (Unverified , 11/04/16) Subjective on 100% NRM since early am awake, alert, denies chest pain, afebrile, leukocytosis trending up Objective Last 24 Hour Vital Signs Date Time Temp Pulse Resp B/P Pulse Ox O2 Delivery O2 Flow Rate FiO2 11/15/16 05:35 96 24 94 Non-Rebreather 100 11/15/16 05:34 93 24 92 Non-Rebreather 15.0 100 11/15/16 04:00 97.0 89 16 134/85 96 Nasal Cannula 2.0 11/15/16 03:35 87 11/15/16 01:07 96 22 93 Non-Rebreather 15.0 100 11/15/16 00:57 102 24 Venturi Mask 14.0 55 11/15/16 00:00 98.6 79 16 142/72 96 Nasal Cannula 2.0 11/14/16 23:38 78 11/14/16 23:22 Venturi Mask 11/14/16 23:21 Venturi Mask 14.0 55 11/14/16 20:00 83 11/14/16 20:00 97.7 90 24 128/76 94 Venturi Mask 55 11/14/16 19:13 Venturi Mask 14.0 55 11/14/16 19:12 93 Venturi Mask 14.0 55 11/14/16 19:10 78 24 Venturi Mask 14.0 55 11/14/16 16:00 97.7 94 28 127/77 94 Venturi Mask 55 11/14/16 16:00 90 11/14/16 15:45 91 20 94 Venturi Mask 14.0 55 11/14/16 15:30 88 20 79 Room Air 11/14/16 12:00 97.3 80 30 120/62 95 Venturi Mask 55 11/14/16 12:00 75 11/14/16 08:00 86 11/14/16 08:00 97.0 91 28 117/68 90 Venturi Mask 55 Intake and Output 11/14/16 11/15/16 19:00 07:00 Intake Total 1145.0 ml 170 ml Output Total 300 ml 400 ml Balance 845.0 ml -230 ml Intake Oral 820 ml 170 ml IV Total 325.0 ml Output Urine Total 300 ml 400 ml General Appearance: no acute distress, other - awake, alert, responsive HEENT: normocephalic, PERRL, other - 100%NRM Respiratory/Chest: rhonchi - bilaterally , expiratory wheezing - some scattered expiratory wheezes Cardiovascular: normal rate, regular rhythm Abdomen: normal bowel sounds, soft, non tender, non distended Genitourinary: normal external genitalia Extremities: no edema Microbiology Date/Time Source Procedure Growth Status 11/13/16 03:40 Blood Blood Culture - Preliminary NO GROWTH AFTER 48 HOURS Resulted 11/13/16 03:30 Blood Blood Culture - Preliminary NO GROWTH AFTER 48 HOURS Resulted 11/13/16 03:00 Sputum Expectorated Gram Stain - Final Resulted 11/13/16 03:00 Sputum Expectorated Sputum Culture - Preliminary NORMAL UPPER RESPIRATORY AILYN AT 24 ... Resulted Laboratory Tests 11/14/16 09:25: Arterial Blood pH 7.490H, Arterial Blood Partial Pressure CO2 39.6, Arterial Blood Partial Pressure O2 63.2L, Arterial Blood HCO3 30.1H, Arterial Blood Oxygen Saturation 92.1, Arterial Blood Base Excess 6.5, Bryn Test Positive 11/15/16 03:00: White Blood Count 21.3H, Red Blood Count 4.05L, Hemoglobin 12.7L, Hematocrit 37.8L, Mean Corpuscular Volume 93, Mean Corpuscular Hemoglobin 31.4H, Mean Corpuscular Hemoglobin Concent 33.7, Red Cell Distribution Width 13.6, Platelet Count 191, Mean Platelet Volume 9.0, Neutrophils (%) (Auto) , Lymphocytes (%) ( Auto) , Monocytes (%) (Auto) , Eosinophils (%) (Auto) , Basophils (%) (Auto) , Neutrophils % (Manual) [Pending], Lymphocytes % (Manual) [Pending], Platelet Estimate [Pending], Platelet Morphology [Pending], Sodium Level 140, Potassium Level 3.3L, Chloride Level 94L, Carbon Dioxide Level 31H, Anion Gap 15, Blood Urea Nitrogen 35H, Creatinine 1.1, Estimat Glomerular Filtration Rate , Glucose Level 183H, Calcium Level 8.2L, Total Bilirubin 0.5, Aspartate Amino Transf (AST /SGOT) 29, Alanine Aminotransferase (ALT/SGPT) 26, Alkaline Phosphatase 92, Pro- B-Type Natriuretic Peptide 1350H, Total Protein 5.9L, Albumin 2.8L, Globulin 3.1 , Albumin/Globulin Ratio 0.9L Current Medications Medications (Trade) Dose Ordered Sig/Jackie Route PRN Reason Start Time Stop Time Status Last Admin Dose Admin Albuterol/ Ipratropium (DuoNeb 0.5-3(2.5)mg/3ml) 3 ml Q4H PRN HHN dyspnea 11/14/16 08:00 11/19/16 07:59 11/15/16 05:34 Dextrose (Dextrose 50%) STAT PRN IV Hypoglycemia 11/10/16 22:00 12/10/16 21:59 Heparin Sodium (Porcine) (Heparin 5000 units/ml) 5,000 units EVERY 12 HOURS SUBQ 11/11/16 09:00 12/11/16 08:59 11/14/16 20:43 Insulin Aspart (NovoLOG) BEFORE MEALS AND HS SUBQ 11/11/16 06:30 12/11/16 06:29 11/15/16 06:06 Ketorolac Tromethamine (Toradol 30mg) 15 mg Q8H PRN IV Moderate Pain (Pain Scale 4-6) 11/14/16 08:00 11/18/16 07:59 Levothyroxine Sodium (Synthroid) 88 mcg DAILY@0630 ORAL 11/11/16 06:30 12/11/16 06:29 11/15/16 06:02 Lidocaine (Xylocaine 1% MPF 5ml) 10 ml Q8HRT HHN 11/12/16 23:00 12/12/16 22:59 11/13/16 23:15 Lorazepam (Ativan 2mg/ml 1ml) 0.5 mg Q4H PRN IV For Anxiety 11/10/16 22:00 11/17/16 21:59 11/14/16 15:50 Memantine (Namenda) 5 mg DAILY ORAL 11/11/16 09:00 12/11/16 08:59 11/14/16 09:13 Methadone HCl (Methadone HCl) 2.5 mg EVERY 8 HOURS ORAL 11/12/16 16:30 11/19/16 16:29 11/15/16 06:05 Methylprednisolone Sodium Succinate (Solu-MEDROL) 60 mg EVERY 6 HOURS IV 11/11/16 00:00 12/11/16 00:00 11/15/16 06:02 Morphine Sulfate (Morphine Sulfate) 2 mg Q4H PRN IVP severe pain 7-10 11/10/16 22:00 11/17/16 21:59 Nitroglycerin (Ntg) 0.4 mg Q5M X 3 DOSES PRN SL Prn Chest Pain 11/10/16 22:00 12/10/16 21:59 Ondansetron HCl (Zofran) 4 mg Q6H PRN IVP Nausea & Vomiting 11/10/16 22:00 12/10/16 21:59 Potassium Chloride (K-Dur) 20 meq DAILY ORAL 11/14/16 09:00 12/14/16 08:59 11/14/16 09:13 Promethazine HCl/ Codeine (Phenergan with Codeine) 5 ml Q6H PRN ORAL cough 11/10/16 22:00 12/10/16 21:59 11/15/16 01:13 Temazepam (Restoril) 15 mg HSPRN PRN ORAL Insomnia 11/10/16 22:00 11/17/16 21:59 11/14/16 21:30 Theophylline (Simeon-Dur) 100 mg EVERY 12 HOURS ORAL 11/11/16 09:00 12/11/16 08:59 11/14/16 20:43 Vancomycin HCl 1 ea 1 ea DAILY PRN MISC Per rx protocol 11/12/16 14:45 12/12/16 14:44 Vancomycin HCl/ Dextrose (Vancomycin/D5W) 325 ml @ 162.5 mls/ hr Q24H IVPB 11/12/16 16:00 11/17/16 15:59 11/14/16 15:58 Maribeth Fung NP ([facility]) Nov 15, 2016 08:01
[2016-11-15] MEDS ORDERED: LORazepam Inj 2mg/ml 1ml IV PRN (09:00)
[2016-11-15] MEDS: Theophylline ER 100mg ORAL SCH ×2 (09:00→21:36)
[2016-11-15] MEDS ORDERED: KCl 10% 40mEq/30ml liquid NG ONE (09:00)
[2016-11-15] MEDS: Memantine 5 MG TAB ORAL SCH (09:00)
[2016-11-15] MEDS ORDERED: Morphine Sulfate 2mg/ml Inj IVP PRN (09:00)
[2016-11-15] MEDS: Heparin 5000 units/ml inj SUBQ SCH ×2 (09:03→21:40)
[2016-11-15 09:17] LABS: ABG BASE EXCESS 5.2; ABG PCO2 39.9 mmHg (35.0-45.0)
[2016-11-15 09:18] LABS: ABG ALLEN TEST POSITIVE
[2016-11-15 09:47] LABS: BAND NEUTROPHILS % (MANUAL) 0 % (0-8); BASOPHILS % (MANUAL) 0 % (0-2); EOSINOPHILS % (MANUAL) 0 % (0-3); LYMPHOCYTES % (MANUAL) 4 % (20-45); NEUTROPHILS % (MANUAL) 91 % (45-75); PLATELET ESTIMATE ADEQUATE; PLATELET MORPHOLOGY NORMAL; TOTAL CELLS COUNTED 100
[2016-11-15 09:48] LABS: HYPOCHROMASIA 1+
[2016-11-15 09:49] LABS: POLYCHROMASIA OCCASIONAL
--- NOTE | 2016-11-15 10:14 | Diagnostic Imaging Report ---
Clinical history: Acute shortness of breath. Technique: Portable AP chest radiograph was obtained. Comparison: 11/13/16. Findings: There is no significant interval change in the interval, allowing for differences in technique and positioning. Impression: 1. Borderline cardiomegaly with moderate pulmonary edema and suspected trace effusions. 2. Low lung volumes with probable basilar atelectasis and scattered changes of chronic lung disease/pulmonary fibrosis. Please refer to the recent chest CT report for further details.
[2016-11-15 12:00] VITALS: BP 117/66
--- NOTE | 2016-11-15 12:53 | Infectious Diseases Prog Note ---
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 No definite superimposed acute process - CT Chest 11/06: Bronchiectasis and honeycombing, indicative of end-stage interstitial fibrosis, nonspecific as regards etiology. Subpleural blebs or bullae, could indicate COPD changes. No definite acute pulmonary process. Mediastinal lymphadenopathy. This may be reactive, inflammatory, or neoplastic - h/o O2-dependent pulmonary, fibrosis - negative: influenza, legionella UAg // Acute leukocytosis - stable, afebrile ( after starting steroids ) // CKD3 // Elevated LFTs - improved, hepatitis panel(-) - US: Negative for gallstones or dilated ducts // Advance dementia // NKDA // Full Code PLAN: - continue IV vancomycin d# 4 / -14 ( 11/13 SP zosyn d# 7 / 7 ) ( 11/10 SP levaquin d# 7 ) - taper steroids per pulm - f/u final cultures - monitor CBC, temperatures - monitor BMP - monitor CXR Subjective Allergies: Coded Allergies: No Known Allergies (Unverified , 11/04/16) Subjective remains afebrile, still on NRB repeat BCx GPC 09/30 Objective Vital Signs Last 24 Hour Vital Signs Date Time Temp Pulse Resp B/P Pulse Ox O2 Delivery O2 Flow Rate FiO2 11/15/16 12:00 97.5 82 18 117/66 98 Non-Rebreather 100 11/15/16 08:00 97 11/15/16 08:00 96.8 101 22 123/68 96 Non-Rebreather 100 11/15/16 07:00 Non-Rebreather 15.0 100 11/15/16 07:00 94 24 96 Non-Rebreather 15.0 100 11/15/16 07:00 96 Non-Rebreather 15.0 100 11/15/16 07:00 94 24 96 Non-Rebreather 15.0 100 11/15/16 07:00 97 24 Non-Rebreather 15.0 100 11/15/16 05:35 96 24 94 Non-Rebreather 100 11/15/16 05:34 93 24 92 Non-Rebreather 15.0 100 11/15/16 04:00 97.0 89 16 134/85 96 Nasal Cannula 2.0 11/15/16 03:35 87 11/15/16 01:07 96 22 93 Non-Rebreather 15.0 100 11/15/16 00:57 102 24 Venturi Mask 14.0 55 11/15/16 00:00 98.6 79 16 142/72 96 Nasal Cannula 2.0 11/14/16 23:38 78 11/14/16 23:22 Venturi Mask 11/14/16 23:21 Venturi Mask 14.0 55 11/14/16 20:00 83 11/14/16 20:00 97.7 90 24 128/76 94 Venturi Mask 55 11/14/16 19:13 Venturi Mask 14.0 55 11/14/16 19:12 93 Venturi Mask 14.0 55 11/14/16 19:10 78 24 Venturi Mask 14.0 55 11/14/16 16:00 97.7 94 28 127/77 94 Venturi Mask 55 11/14/16 16:00 90 11/14/16 15:45 91 20 94 Venturi Mask 14.0 55 11/14/16 15:30 88 20 79 Room Air Height (Feet): 5 Height (Inches): 6.00 Weight (Pounds): 160 General Appearance: no acute distress Respiratory/Chest: decreased breath sounds Cardiovascular: normal rate, regular rhythm Abdomen: normal bowel sounds, soft, non tender, non distended Microbiology Date/Time Source Procedure Growth Status 11/13/16 03:40 Blood Blood Culture - Preliminary NO GROWTH AFTER 48 HOURS Resulted 11/13/16 03:30 Blood Blood Culture - Preliminary Resulted 11/13/16 03:00 Sputum Expectorated Gram Stain - Final Resulted 11/13/16 03:00 Sputum Expectorated Sputum Culture - Preliminary Resulted Laboratory Tests Test 11/15/16 03:00 11/15/16 09:10 White Blood Count 21.3 K/UL (4.8-10.8) H Red Blood Count 4.05 M/UL (4.70-6.10) L Hemoglobin 12.7 G/DL (14.2-18.0) L Hematocrit 37.8 % (42.0-52.0) L Mean Corpuscular Volume 93 FL (80-99) Mean Corpuscular Hemoglobin 31.4 PG (27.0-31.0) H Mean Corpuscular Hemoglobin Concent 33.7 G/DL (32.0-36.0) Red Cell Distribution Width 13.6 % (11.6-14.8) Platelet Count 191 K/UL (150-450) Mean Platelet Volume 9.0 FL (6.5-10.1) Neutrophils (%) (Auto) % (45.0-75.0) Lymphocytes (%) (Auto) % (20.0-45.0) Monocytes (%) (Auto) % (1.0-10.0) Eosinophils (%) (Auto) % (0.0-3.0) Basophils (%) (Auto) % (0.0-2.0) Differential Total Cells Counted 100 Neutrophils % (Manual) 91 % (45-75) H Lymphocytes % (Manual) 4 % (20-45) L Monocytes % (Manual) 5 % (1-10) Eosinophils % (Manual) 0 % (0-3) Basophils % (Manual) 0 % (0-2) Band Neutrophils 0 % (0-8) Platelet Estimate Adequate Platelet Morphology Normal Polychromasia Occasional Hypochromasia 1+ Sodium Level 140 mEQ/L (135-145) Potassium Level 3.3 mEQ/L (3.4-4.9) L Chloride Level 94 mEQ/L (98-107) L Carbon Dioxide Level 31 mEQ/L (20-30) H Anion Gap 15 (5-15) Blood Urea Nitrogen 35 mg/dL (7-23) H Creatinine 1.1 mg/dL (0.7-1.2) Estimat Glomerular Filtration Rate mL/min (>60) Glucose Level 183 mg/dL (74-106) H Calcium Level 8.2 mg/dL (8.6-10.2) L Total Bilirubin 0.5 mg/dL (0.0-1.2) Aspartate Amino Transf (AST/SGOT) 29 U/L (5-40) Alanine Aminotransferase (ALT/SGPT) 26 U/L (3-41) Alkaline Phosphatase 92 U/L (40-129) Pro-B-Type Natriuretic Peptide 1350 pg/mL (0-450) H Total Protein 5.9 g/dL (6.6-8.7) L Albumin 2.8 g/dL (3.5-5.2) L Globulin 3.1 g/dL Albumin/Globulin Ratio 0.9 (1.0-2.7) L Arterial Blood pH 7.480 (7.350-7.450) Arterial Blood Partial Pressure CO2 39.9 mmHg (35.0-45.0) Arterial Blood Partial Pressure O2 103.9 mmHg (75.0-100.0) H Arterial Blood HCO3 29.0 mmol/L (22.0-26.0) H Arterial Blood Oxygen Saturation 97.9 % (92.0-98.0) Arterial Blood Base Excess 5.2 Bryn Test Positive Current Medications Medications (Trade) Dose Ordered Sig/Jackie Route PRN Reason Start Time Stop Time Status Last Admin Dose Admin Albuterol/ Ipratropium (DuoNeb 0.5-3(2.5)mg/3ml) 3 ml Q4H PRN HHN dyspnea 11/14/16 08:00 11/19/16 07:59 11/15/16 05:34 Dextrose (Dextrose 50%) STAT PRN IV Hypoglycemia 11/10/16 22:00 12/10/16 21:59 Heparin Sodium (Porcine) (Heparin 5000 units/ml) 5,000 units EVERY 12 HOURS SUBQ 11/11/16 09:00 12/11/16 08:59 11/15/16 09:03 Insulin Aspart (NovoLOG) BEFORE MEALS AND HS SUBQ 11/11/16 06:30 12/11/16 06:29 11/15/16 12:15 Ketorolac Tromethamine (Toradol 30mg) 15 mg Q8H PRN IV Moderate Pain (Pain Scale 4-6) 11/14/16 08:00 11/18/16 07:59 Levothyroxine Sodium (Synthroid) 88 mcg DAILY@0630 ORAL 11/11/16 06:30 12/11/16 06:29 11/15/16 06:02 Lidocaine (Xylocaine 1% MPF 5ml) 10 ml Q8HRT HHN 11/12/16 23:00 12/12/16 22:59 11/13/16 23:15 Lorazepam (Ativan 2mg/ml 1ml) 0.5 mg Q4H PRN IV For Anxiety 11/15/16 09:00 11/22/16 08:59 Memantine (Namenda) 5 mg DAILY ORAL 11/11/16 09:00 12/11/16 08:59 11/15/16 09:00 Methadone HCl (Methadone HCl) 2.5 mg EVERY 8 HOURS ORAL 11/12/16 16:30 11/19/16 16:29 11/15/16 06:05 Methylprednisolone Sodium Succinate (Solu-MEDROL) 60 mg Q8HR IV 11/15/16 14:00 12/15/16 13:59 Morphine Sulfate (Morphine Sulfate) 2 mg Q4H PRN IVP Severe Pain (Pain Scale 7-10) 11/15/16 09:00 11/22/16 08:59 Nitroglycerin (Ntg) 0.4 mg Q5M X 3 DOSES PRN SL Prn Chest Pain 11/10/16 22:00 12/10/16 21:59 Ondansetron HCl (Zofran) 4 mg Q6H PRN IVP Nausea & Vomiting 11/10/16 22:00 12/10/16 21:59 Potassium Chloride (K-Dur) 20 meq DAILY ORAL 11/14/16 09:00 12/14/16 08:59 11/15/16 09:00 Promethazine HCl/ Codeine (Phenergan with Codeine) 5 ml Q6H PRN ORAL cough 11/10/16 22:00 12/10/16 21:59 11/15/16 01:13 Temazepam (Restoril) 15 mg HSPRN PRN ORAL Insomnia 11/15/16 21:00 11/22/16 20:59 Theophylline (Simeon-Dur) 100 mg EVERY 12 HOURS ORAL 11/11/16 09:00 12/11/16 08:59 11/15/16 09:00 Vancomycin HCl 1 ea 1 ea DAILY PRN MISC Per rx protocol 11/12/16 14:45 12/12/16 14:44 Vancomycin HCl/ Dextrose (Vancomycin/D5W) 325 ml @ 162.5 mls/ hr Q24H IVPB 11/12/16 16:00 11/17/16 15:59 11/14/16 15:58 JOEL MAURO Nov 15, 2016 12:53
[2016-11-15 15:59] VITALS: BP 130/74
[2016-11-15] MEDS: Vancomycin 1.5 GM in D5W 325 ML IVPB SCH (17:28)
[2016-11-15] MEDS ORDERED: NS 275ml ONE (17:28)
[2016-11-15 20:00] VITALS: BP 127/77
[2016-11-16] VITALS: BP 118/77
[2016-11-16 04:00] VITALS: BP 138/85
[2016-11-16 04:33] LABS: MEAN CORPUSCULAR HEMOGLOBIN 30.9 PG (27.0-31.0); MEAN CORPUSCULAR HGB CONC 33.1 G/DL (32.0-36.0); MEAN CORPUSCULAR VOLUME 94 FL (80-99); MEAN PLATELET VOLUME 8.7 FL (6.5-10.1); PLATELET COUNT 179 K/UL (150-450); RED CELL DISTRIBUTION WIDTH 13.5 % (11.6-14.8); WHITE BLOOD COUNT 21.1 K/UL (4.8-10.8)
[2016-11-16 05:29] LABS: ALANINE AMINOTRANSFERASE 22 U/L (3-41); ALBUMIN/GLOBULIN RATIO 0.7 (1.0-2.7); ANION GAP 14 (5-15); ASPARTATE AMINO TRANSFERASE 25 U/L (5-40); CALCIUM 8.2 mg/dL (8.6-10.2); CARBON DIOXIDE 28 mEQ/L (20-30); CHLORIDE 98 mEQ/L (98-107); HEMOLYSIS 2; POTASSIUM 4.3 mEQ/L (3.4-4.9); SODIUM 140 mEQ/L (135-145); TOTAL PROTEIN 5.7 g/dL (6.6-8.7)
[2016-11-16] MEDS: Solu-MEDROL 125mg Inj IV SCH (05:59)
[2016-11-16] MEDS: NovoLOG Insulin Flexpen SUBQ SCH ×4 (06:04→20:48)
[2016-11-16] MEDS: Lidocaine 1% MPF 10mg/ml 5ml HHN SCH ×3 (07:00→23:56)
[2016-11-16 07:39] LABS: BAND NEUTROPHILS % (MANUAL) 0 % (0-8); BASOPHILS % (MANUAL) 0 % (0-2); EOSINOPHILS % (MANUAL) 2 % (0-3); LYMPHOCYTES % (MANUAL) 5 % (20-45); NEUTROPHILS % (MANUAL) 89 % (45-75); PLATELET ESTIMATE ADEQUATE; PLATELET MORPHOLOGY NORMAL; TOTAL CELLS COUNTED 100
[2016-11-16 08:00] VITALS: BP 139/81
[2016-11-16] MEDS: Theophylline ER 100mg ORAL SCH ×2 (09:01→20:44)
[2016-11-16] MEDS: Memantine 5 MG TAB ORAL SCH (09:02)
[2016-11-16] MEDS: Heparin 5000 units/ml inj SUBQ SCH ×2 (09:03→20:47)
--- NOTE | 2016-11-16 10:50 | Diagnostic Imaging Report ---
Indication: DYSPNEA Technique: One view of the chest Comparison: 11/10/2016 Findings: Bilateral diffuse chronic interstitial disease appears less striking on the prior study, probably due to better inspiration on the current exam no new infiltrates. Contrast is seen in colon, presumably from recent swallowing study. Aorta is tortuous and ectatic and calcified Impression: No significant change, over 3 days. Findings as noted
[2016-11-16 12:00] VITALS: BP 124/73
--- NOTE | 2016-11-16 12:04 | Diagnostic Imaging Report ---
Indication: Dyspnea Comparison: 11/15/16 A single view chest radiograph was obtained. Findings: Extensive interstitial opacities are present bilaterally without significant change. Lung volumes remain low. The heart is borderline enlarged. Bones are osteopenic. Impression: Extensive interstitial disease
--- NOTE | 2016-11-16 12:36 | Infectious Diseases Prog Note ---
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 Subpleural blebs or bullae, could indicate COPD changes. No definite acute pulmonary process. Mediastinal lymphadenopathy. This may be reactive, inflammatory, or neoplastic - h/o O2-dependent pulmonary, fibrosis - negative: influenza, legionella UAg // Acute leukocytosis - stable, afebrile ( after starting steroids ) // CKD3 // Elevated LFTs - improved, hepatitis panel(-) - US: Negative for gallstones or dilated ducts // Advance dementia // NKDA // Full Code PLAN: - continue IV vancomycin d# 5 / 14 ( 11/13 SP zosyn d# 7 / 7 ) ( 11/10 SP levaquin d# 7 ) - taper steroids per pulm - f/u final cultures - monitor CBC, temperatures - monitor BMP - monitor CXR Subjective Allergies: Coded Allergies: No Known Allergies (Unverified , 11/04/16) Subjective remains afebrile, still on NRB repeat BCx CONS 09/30 Objective Vital Signs Last 24 Hour Vital Signs Date Time Temp Pulse Resp B/P Pulse Ox O2 Delivery O2 Flow Rate FiO2 11/16/16 08:00 97.9 90 20 139/81 91 Non-Rebreather 11/16/16 08:00 98 11/16/16 07:15 Non-Rebreather 11/16/16 07:13 72 20 98 Non-Rebreather 15.0 100 11/16/16 07:12 Non-Rebreather 15.0 100 11/16/16 07:12 98 Non-Rebreather 15.0 100 11/16/16 04:00 97.0 71 20 138/85 100 Non-Rebreather 11/16/16 04:00 74 11/16/16 00:00 98.4 87 24 118/77 96 Non-Rebreather 11/16/16 00:00 93 11/15/16 22:35 Non-Rebreather 11/15/16 22:34 76 20 97 Non-Rebreather 15.0 100 11/15/16 20:45 74 26 94 Non-Rebreather 15.0 100 11/15/16 20:21 68 11/15/16 20:00 97.9 65 20 127/77 98 11/15/16 19:29 88 20 Non-Rebreather 15.0 100 11/15/16 19:15 97 Non-Rebreather 15.0 100 11/15/16 19:15 Non-Rebreather 15.0 100 11/15/16 16:00 70 11/15/16 15:59 97.7 75 20 130/74 97 11/15/16 15:00 78 21 97 Non-Rebreather 15.0 100 11/15/16 15:00 78 21 97 Non-Rebreather 15.0 100 Height (Feet): 5 Height (Inches): 6.00 Weight (Pounds): 160 General Appearance: no acute distress Respiratory/Chest: decreased breath sounds Cardiovascular: normal rate, regular rhythm Abdomen: normal bowel sounds, soft, non tender, non distended Laboratory Tests Test 11/15/16 15:15 11/16/16 03:15 Vancomycin Level Trough 15.3 ug/mL (5.0-12.0) H White Blood Count 21.1 K/UL (4.8-10.8) H Red Blood Count 4.00 M/UL (4.70-6.10) L Hemoglobin 12.4 G/DL (14.2-18.0) L Hematocrit 37.4 % (42.0-52.0) L Mean Corpuscular Volume 94 FL (80-99) Mean Corpuscular Hemoglobin 30.9 PG (27.0-31.0) Mean Corpuscular Hemoglobin Concent 33.1 G/DL (32.0-36.0) Red Cell Distribution Width 13.5 % (11.6-14.8) Platelet Count 179 K/UL (150-450) Mean Platelet Volume 8.7 FL (6.5-10.1) Neutrophils (%) (Auto) % (45.0-75.0) Lymphocytes (%) (Auto) % (20.0-45.0) Monocytes (%) (Auto) % (1.0-10.0) Eosinophils (%) (Auto) % (0.0-3.0) Basophils (%) (Auto) % (0.0-2.0) Differential Total Cells Counted 100 Neutrophils % (Manual) 89 % (45-75) H Lymphocytes % (Manual) 5 % (20-45) L Monocytes % (Manual) 4 % (1-10) Eosinophils % (Manual) 2 % (0-3) Basophils % (Manual) 0 % (0-2) Band Neutrophils 0 % (0-8) Platelet Estimate Adequate Platelet Morphology Normal Red Blood Cell Morphology Normal Sodium Level 140 mEQ/L (135-145) Potassium Level 4.3 mEQ/L (3.4-4.9) Chloride Level 98 mEQ/L (98-107) Carbon Dioxide Level 28 mEQ/L (20-30) Anion Gap 14 (5-15) Blood Urea Nitrogen 34 mg/dL (7-23) H Creatinine 1.0 mg/dL (0.7-1.2) Estimat Glomerular Filtration Rate mL/min (>60) Glucose Level 159 mg/dL (74-106) H Calcium Level 8.2 mg/dL (8.6-10.2) L Magnesium Level 2.4 mg/dL (1.7-2.5) Total Bilirubin 0.6 mg/dL (0.0-1.2) Aspartate Amino Transf (AST/SGOT) 25 U/L (5-40) Alanine Aminotransferase (ALT/SGPT) 22 U/L (3-41) Alkaline Phosphatase 108 U/L (40-129) Pro-B-Type Natriuretic Peptide 1402 pg/mL (0-450) H Total Protein 5.7 g/dL (6.6-8.7) L Albumin 2.5 g/dL (3.5-5.2) L Globulin 3.2 g/dL Albumin/Globulin Ratio 0.7 (1.0-2.7) L Current Medications Medications (Trade) Dose Ordered Sig/Jackie Route PRN Reason Start Time Stop Time Status Last Admin Dose Admin Albuterol/ Ipratropium (DuoNeb 0.5-3(2.5)mg/3ml) 3 ml Q4H PRN HHN dyspnea 11/14/16 08:00 11/19/16 07:59 11/15/16 20:46 Dextrose (Dextrose 50%) STAT PRN IV Hypoglycemia 11/10/16 22:00 12/10/16 21:59 Heparin Sodium (Porcine) (Heparin 5000 units/ml) 5,000 units EVERY 12 HOURS SUBQ 11/11/16 09:00 12/11/16 08:59 11/16/16 09:03 Insulin Aspart (NovoLOG) BEFORE MEALS AND HS SUBQ 11/11/16 06:30 12/11/16 06:29 11/16/16 12:08 Ketorolac Tromethamine (Toradol 30mg) 15 mg Q8H PRN IV Moderate Pain (Pain Scale 4-6) 11/14/16 08:00 11/18/16 07:59 Levothyroxine Sodium (Synthroid) 88 mcg DAILY@0630 ORAL 11/11/16 06:30 12/11/16 06:29 11/16/16 06:00 Lidocaine (Xylocaine 1% MPF 5ml) 10 ml Q8HRT HHN 11/12/16 23:00 12/12/16 22:59 11/13/16 23:15 Lorazepam (Ativan 2mg/ml 1ml) 0.5 mg Q4H PRN IV For Anxiety 11/15/16 09:00 11/22/16 08:59 Memantine (Namenda) 5 mg DAILY ORAL 11/11/16 09:00 12/11/16 08:59 11/16/16 09:02 Methadone HCl (Methadone HCl) 2.5 mg EVERY 8 HOURS ORAL 11/12/16 16:30 11/19/16 16:29 11/16/16 06:00 Methylprednisolone Sodium Succinate (Solu-MEDROL) 60 mg Q8HR IV 11/15/16 14:00 12/15/16 13:59 11/16/16 05:59 Morphine Sulfate (Morphine Sulfate) 2 mg Q4H PRN IVP Severe Pain (Pain Scale 7-10) 11/15/16 09:00 11/22/16 08:59 Nitroglycerin (Ntg) 0.4 mg Q5M X 3 DOSES PRN SL Prn Chest Pain 11/10/16 22:00 12/10/16 21:59 Ondansetron HCl (Zofran) 4 mg Q6H PRN IVP Nausea & Vomiting 11/10/16 22:00 12/10/16 21:59 Potassium Chloride (K-Dur) 20 meq DAILY ORAL 11/14/16 09:00 12/14/16 08:59 11/16/16 09:01 Promethazine HCl/ Codeine (Phenergan with Codeine) 5 ml Q6H PRN ORAL cough 11/10/16 22:00 12/10/16 21:59 11/15/16 01:13 Temazepam (Restoril) 15 mg HSPRN PRN ORAL Insomnia 11/15/16 21:00 11/22/16 20:59 Theophylline (Simeon-Dur) 100 mg EVERY 12 HOURS ORAL 11/11/16 09:00 12/11/16 08:59 11/16/16 09:01 Vancomycin HCl 1 ea 1 ea DAILY PRN MISC Per rx protocol 11/12/16 14:45 12/12/16 14:44 Vancomycin HCl/ Dextrose (Vancomycin/D5W) 325 ml @ 162.5 mls/ hr Q24H IVPB 11/12/16 16:00 11/17/16 15:59 11/15/16 17:28 JOEL MAURO Nov 16, 2016 12:36
--- NOTE | 2016-11-16 12:58 | Pulmonology Progress Note ---
Assessment/Plan Problems: (1) Acute respiratory failure (2) COPD (chronic obstructive pulmonary disease) (3) ATN (acute tubular necrosis) (4) Dyspnea (5) Pulmonary fibrosis (6) Chest pain (7) Aortic aneurysm (8) Interstitial lung disease (9) Advanced dementia Assessment/Plan add lasix again cxr today showing to change BNP is elevated dose methadone for dyspnea check sputum continue antibiotics and steroids bc positive for Coag negative stap ID will change to doxy upon discharge. K supplement Subjective Interval Events: pt is on 100% nonrebreathing mask Allergies: Coded Allergies: No Known Allergies (Unverified , 11/04/16) Objective Last 24 Hour Vital Signs Date Time Temp Pulse Resp B/P Pulse Ox O2 Delivery O2 Flow Rate FiO2 11/16/16 08:00 97.9 90 20 139/81 91 Non-Rebreather 11/16/16 08:00 98 11/16/16 07:15 Non-Rebreather 11/16/16 07:13 72 20 98 Non-Rebreather 15.0 100 11/16/16 07:12 Non-Rebreather 15.0 100 11/16/16 07:12 98 Non-Rebreather 15.0 100 11/16/16 04:00 97.0 71 20 138/85 100 Non-Rebreather 11/16/16 04:00 74 11/16/16 00:00 98.4 87 24 118/77 96 Non-Rebreather 11/16/16 00:00 93 11/15/16 22:35 Non-Rebreather 11/15/16 22:34 76 20 97 Non-Rebreather 15.0 100 11/15/16 20:45 74 26 94 Non-Rebreather 15.0 100 11/15/16 20:21 68 11/15/16 20:00 97.9 65 20 127/77 98 11/15/16 19:29 88 20 Non-Rebreather 15.0 100 11/15/16 19:15 97 Non-Rebreather 15.0 100 11/15/16 19:15 Non-Rebreather 15.0 100 11/15/16 16:00 70 11/15/16 15:59 97.7 75 20 130/74 97 11/15/16 15:00 78 21 97 Non-Rebreather 15.0 100 11/15/16 15:00 78 21 97 Non-Rebreather 15.0 100 Intake and Output 11/15/16 11/16/16 19:00 07:00 Intake Total 200 ml 320 ml Output Total 250 ml 200 ml Balance -50 ml 120 ml Intake Oral 200 ml 320 ml Output Urine Total 250 ml 200 ml # Voids 4 Objective still on 100% fio2, face mask Lines, tubes and drains: peripheral HEENT: normocephalic, atraumatic Neck: non-tender, normal alignment Respiratory/Chest: rhonchi - left, rhonchi - right, expiratory wheezing Cardiovascular/Chest: normal peripheral pulses, regular rhythm Abdomen: normal bowel sounds, non tender, hyperactive bowel sounds Genitourinary/Rectal: normal rectal exam Extremities: normal range of motion, non-tender d/w family members at bed site, they agree with hospice care at home. Laboratory Tests 11/15/16 15:15: Vancomycin Level Trough 15.3H 11/16/16 03:15: White Blood Count 21.1H, Red Blood Count 4.00L, Hemoglobin 12.4L, Hematocrit 37.4L, Mean Corpuscular Volume 94, Mean Corpuscular Hemoglobin 30.9, Mean Corpuscular Hemoglobin Concent 33.1, Red Cell Distribution Width 13.5, Platelet Count 179, Mean Platelet Volume 8.7, Neutrophils (%) (Auto) , Lymphocytes (%) ( Auto) , Monocytes (%) (Auto) , Eosinophils (%) (Auto) , Basophils (%) (Auto) , Differential Total Cells Counted 100, Neutrophils % (Manual) 89H, Lymphocytes % (Manual) 5L, Monocytes % (Manual) 4, Eosinophils % (Manual) 2, Basophils % ( Manual) 0, Band Neutrophils 0, Platelet Estimate Adequate, Platelet Morphology Normal, Red Blood Cell Morphology Normal, Sodium Level 140, Potassium Level 4.3 , Chloride Level 98, Carbon Dioxide Level 28, Anion Gap 14, Blood Urea Nitrogen 34H, Creatinine 1.0, Estimat Glomerular Filtration Rate , Glucose Level 159H, Calcium Level 8.2L, Magnesium Level 2.4, Total Bilirubin 0.6, Aspartate Amino Transf (AST/SGOT) 25, Alanine Aminotransferase (ALT/SGPT) 22, Alkaline Phosphatase 108, Pro-B-Type Natriuretic Peptide 1402H, Total Protein 5.7L, Albumin 2.5L, Globulin 3.2, Albumin/Globulin Ratio 0.7L Current Medications Medications (Trade) Dose Ordered Sig/Jackie Route PRN Reason Start Time Stop Time Status Last Admin Dose Admin Albuterol/ Ipratropium (DuoNeb 0.5-3(2.5)mg/3ml) 3 ml Q4H PRN HHN dyspnea 11/14/16 08:00 11/19/16 07:59 11/15/16 20:46 Dextrose (Dextrose 50%) STAT PRN IV Hypoglycemia 11/10/16 22:00 12/10/16 21:59 Heparin Sodium (Porcine) (Heparin 5000 units/ml) 5,000 units EVERY 12 HOURS SUBQ 11/11/16 09:00 12/11/16 08:59 11/16/16 09:03 Insulin Aspart (NovoLOG) BEFORE MEALS AND HS SUBQ 11/11/16 06:30 12/11/16 06:29 11/16/16 12:08 Ketorolac Tromethamine (Toradol 30mg) 15 mg Q8H PRN IV Moderate Pain (Pain Scale 4-6) 11/14/16 08:00 11/18/16 07:59 Levothyroxine Sodium (Synthroid) 88 mcg DAILY@0630 ORAL 11/11/16 06:30 12/11/16 06:29 11/16/16 06:00 Lidocaine (Xylocaine 1% MPF 5ml) 10 ml Q8HRT HHN 11/12/16 23:00 12/12/16 22:59 11/13/16 23:15 Lorazepam (Ativan 2mg/ml 1ml) 0.5 mg Q4H PRN IV For Anxiety 11/15/16 09:00 11/22/16 08:59 Memantine (Namenda) 5 mg DAILY ORAL 11/11/16 09:00 12/11/16 08:59 11/16/16 09:02 Methadone HCl (Methadone HCl) 2.5 mg EVERY 8 HOURS ORAL 11/12/16 16:30 11/19/16 16:29 11/16/16 06:00 Methylprednisolone Sodium Succinate (Solu-MEDROL) 60 mg Q8HR IV 11/15/16 14:00 12/15/16 13:59 11/16/16 05:59 Morphine Sulfate (Morphine Sulfate) 2 mg Q4H PRN IVP Severe Pain (Pain Scale 7-10) 11/15/16 09:00 11/22/16 08:59 Nitroglycerin (Ntg) 0.4 mg Q5M X 3 DOSES PRN SL Prn Chest Pain 11/10/16 22:00 12/10/16 21:59 Ondansetron HCl (Zofran) 4 mg Q6H PRN IVP Nausea & Vomiting 11/10/16 22:00 12/10/16 21:59 Potassium Chloride (K-Dur) 20 meq DAILY ORAL 11/14/16 09:00 12/14/16 08:59 11/16/16 09:01 Promethazine HCl/ Codeine (Phenergan with Codeine) 5 ml Q6H PRN ORAL cough 11/10/16 22:00 12/10/16 21:59 11/15/16 01:13 Temazepam (Restoril) 15 mg HSPRN PRN ORAL Insomnia 11/15/16 21:00 11/22/16 20:59 Theophylline (Simeon-Dur) 100 mg EVERY 12 HOURS ORAL 11/11/16 09:00 12/11/16 08:59 11/16/16 09:01 Vancomycin HCl 1 ea 1 ea DAILY PRN MISC Per rx protocol 11/12/16 14:45 12/12/16 14:44 Vancomycin HCl/ Dextrose (Vancomycin/D5W) 325 ml @ 162.5 mls/ hr Q24H IVPB 11/12/16 16:00 11/17/16 15:59 11/15/16 17:28 VERO COLLADO Nov 16, 2016 12:58
[2016-11-16 16:00] VITALS: BP 140/77
[2016-11-16] MEDS: Vancomycin 1.5 GM in D5W 325 ML IVPB SCH (16:54)
[2016-11-16 20:00] VITALS: BP 118/87
[2016-11-16] MEDS: DuoNeb 0.5-3(2.5)mg/3ml neb HHN PRN (22:52)
[2016-11-17] VITALS (15 sets, daily range): BP systolic 111–142; BP diastolic 68–91
[2016-11-17 03:46] LABS: MEAN CORPUSCULAR HEMOGLOBIN 30.6 PG (27.0-31.0); MEAN CORPUSCULAR HGB CONC 32.1 G/DL (32.0-36.0); MEAN CORPUSCULAR VOLUME 95 FL (80-99); MEAN PLATELET VOLUME 10.1 FL (6.5-10.1); PLATELET COUNT 173 K/UL (150-450); RED BLOOD COUNT 4.51 M/UL (4.70-6.10); RED CELL DISTRIBUTION WIDTH 14.1 % (11.6-14.8)
[2016-11-17 04:04] LABS: ALANINE AMINOTRANSFERASE 37 U/L (3-41); ALBUMIN/GLOBULIN RATIO 0.9 (1.0-2.7); ANION GAP 16 (5-15); ASPARTATE AMINO TRANSFERASE 64 U/L (5-40); CALCIUM 8.5 mg/dL (8.6-10.2); CARBON DIOXIDE 30 mEQ/L (20-30); CHLORIDE 98 mEQ/L (98-107); CREATININE 1.2 mg/dL (0.7-1.2); HEMOLYSIS 6; POTASSIUM 4.3 mEQ/L (3.4-4.9); SODIUM 144 mEQ/L (135-145); TOTAL PROTEIN 6.3 g/dL (6.6-8.7)
[2016-11-17 04:09] LABS: WHITE BLOOD COUNT 30.4 K/UL (4.8-10.8)
[2016-11-17] MEDS: NovoLOG Insulin Flexpen SUBQ SCH ×4 (06:30→20:58)
[2016-11-17] MEDS: DuoNeb 0.5-3(2.5)mg/3ml neb HHN PRN (07:01)
[2016-11-17] MEDS: Lidocaine 1% MPF 10mg/ml 5ml HHN SCH ×3 (07:02→22:40)
[2016-11-17] MEDS: Theophylline ER 100mg ORAL SCH (09:00)
[2016-11-17] MEDS: Memantine 5 MG TAB ORAL SCH (09:00)
[2016-11-17] MEDS: Heparin 5000 units/ml inj SUBQ SCH ×2 (09:24→22:54)
[2016-11-17 11:26] LABS: BAND NEUTROPHILS % (MANUAL) 1 % (0-8); BASOPHILS % (MANUAL) 0 % (0-2); EOSINOPHILS % (MANUAL) 0 % (0-3); LYMPHOCYTES % (MANUAL) 9 % (20-45); NEUTROPHILS % (MANUAL) 85 % (45-75); PLATELET ESTIMATE ADEQUATE; PLATELET MORPHOLOGY NORMAL; TOTAL CELLS COUNTED 100
[2016-11-17] MEDS ORDERED: LORazepam Inj 2mg/ml 1ml IV PRN (12:15)
[2016-11-17] MEDS ORDERED: Morphine Sulfate 4mg/ml Inj IVP PRN ×2 (12:15→16:15)
[2016-11-17 12:27] LABS: ABG ALLEN TEST POSITIVE; ABG BASE EXCESS 7.2
[2016-11-17] MEDS ORDERED: Morphine Sulfate 2mg/ml Inj IVP PRN ×2 (12:38→16:45)
[2016-11-17] MEDS ORDERED: Pantoprazole Inj IV SCH (13:00)
[2016-11-17] MEDS ORDERED: Propofol 10mg/ml 20ml IV ONE ×2 (13:49→14:00)
--- NOTE | 2016-11-17 13:51 | Infectious Diseases Prog Note ---
Assessment/Plan Assessment/Plan ASSESSMENT: 86 y/o male with: // CONS bacteremia 3 ?source - repeat BCx CONS 09/30 // Acute on chronic respiratory failure /2 end-stage pulmonary fibrosis SP BiPAP-->VM - SCx NRF, repeat NRF - CXR 11/16: Extensive interstitial disease - CT Chest 11/06: Bronchiectasis and honeycombing, indicative of end-stage interstitial fibrosis, nonspecific as regards etiology. Subpleural blebs or bullae, could indicate COPD changes. No definite acute pulmonary process. Mediastinal lymphadenopathy. This may be reactive, inflammatory, or neoplastic - h/o O2-dependent pulmonary, fibrosis - negative: influenza, legionella UAg // Acute leukocytosis - worsening, afebrile r/o new infection ( after starting steroids ) // CKD3 // Elevated LFTs - improved, hepatitis panel(-) - US: Negative for gallstones or dilated ducts // Advance dementia // NKDA // Full Code PLAN: - continue IV vancomycin d# 6 / , re-culture, add empiric meropenem d# 1 given worsening leukocytosis ( 11/13 SP zosyn d# 7 / 7 ) ( 11/10 SP levaquin d# 7 ) - taper steroids per pulm - intubation per pulmonary - monitor CBC, temperatures - monitor BMP - monitor CXR Subjective Allergies: Coded Allergies: No Known Allergies (Unverified , 11/04/16) Subjective remains afebrile, still hypoxic, transferred to ICU for possible intubation Objective Vital Signs Last 24 Hour Vital Signs Date Time Temp Pulse Resp B/P Pulse Ox O2 Delivery O2 Flow Rate FiO2 11/17/16 12:00 119 11/17/16 12:00 97.3 116 18 127/86 90 Non-Rebreather 100 11/17/16 08:00 120 11/17/16 08:00 98.1 121 19 129/83 90 Non-Rebreather 100 11/17/16 07:21 107 18 90 Non-Rebreather 15.0 100 11/17/16 07:01 107 24 90 Non-Rebreather 15.0 100 11/17/16 07:00 90 Non-Rebreather 15.0 90 11/17/16 07:00 Non-Rebreather 15.0 90 11/17/16 04:11 84 18 Non-Rebreather 15.0 100 11/17/16 04:00 110 11/17/16 04:00 98.0 105 19 142/82 94 Non-Rebreather 100 11/17/16 00:00 98.1 108 19 133/82 94 Non-Rebreather 100 11/16/16 23:58 101 18 95 Non-Rebreather 15.0 100 11/16/16 23:57 103 18 95 Non-Rebreather 15.0 100 11/16/16 23:43 103 11/16/16 22:53 92 22 93 Non-Rebreather 100 11/16/16 22:52 79 20 93 Non-Rebreather 15.0 100 11/16/16 20:00 98.1 96 19 118/87 94 Non-Rebreather 100 11/16/16 20:00 97 11/16/16 19:06 95 Non-Rebreather 15.0 100 11/16/16 19:06 Non-Rebreather 15.0 100 11/16/16 16:31 95 22 97 Non-Rebreather 15.0 100 11/16/16 16:00 98.4 111 19 140/77 94 Non-Rebreather 100 11/16/16 16:00 90 20 98 Non-Rebreather 15.0 100 11/16/16 16:00 114 Height (Feet): 5 Height (Inches): 6.00 Weight (Pounds): 160 Respiratory/Chest: decreased breath sounds Cardiovascular: normal rate, regular rhythm Abdomen: normal bowel sounds, soft, non tender, non distended Laboratory Tests Test 11/17/16 02:50 11/17/16 12:13 White Blood Count 30.4 K/UL (4.8-10.8) *H Red Blood Count 4.51 M/UL (4.70-6.10) L Hemoglobin 13.8 G/DL (14.2-18.0) L Hematocrit 43.0 % (42.0-52.0) Mean Corpuscular Volume 95 FL (80-99) Mean Corpuscular Hemoglobin 30.6 PG (27.0-31.0) Mean Corpuscular Hemoglobin Concent 32.1 G/DL (32.0-36.0) Red Cell Distribution Width 14.1 % (11.6-14.8) Platelet Count 173 K/UL (150-450) Mean Platelet Volume 10.1 FL (6.5-10.1) Neutrophils (%) (Auto) % (45.0-75.0) Lymphocytes (%) (Auto) % (20.0-45.0) Monocytes (%) (Auto) % (1.0-10.0) Eosinophils (%) (Auto) % (0.0-3.0) Basophils (%) (Auto) % (0.0-2.0) Differential Total Cells Counted 100 Neutrophils % (Manual) 85 % (45-75) H Lymphocytes % (Manual) 9 % (20-45) L Monocytes % (Manual) 5 % (1-10) Eosinophils % (Manual) 0 % (0-3) Basophils % (Manual) 0 % (0-2) Band Neutrophils 1 % (0-8) Platelet Estimate Adequate Platelet Morphology Normal Red Blood Cell Morphology Normal Sodium Level 144 mEQ/L (135-145) Potassium Level 4.3 mEQ/L (3.4-4.9) Chloride Level 98 mEQ/L (98-107) Carbon Dioxide Level 30 mEQ/L (20-30) Anion Gap 16 (5-15) H Blood Urea Nitrogen 43 mg/dL (7-23) H Creatinine 1.2 mg/dL (0.7-1.2) Estimat Glomerular Filtration Rate mL/min (>60) Glucose Level 144 mg/dL (74-106) H Calcium Level 8.5 mg/dL (8.6-10.2) L Total Bilirubin 0.9 mg/dL (0.0-1.2) Aspartate Amino Transf (AST/SGOT) 64 U/L (5-40) H Alanine Aminotransferase (ALT/SGPT) 37 U/L (3-41) Alkaline Phosphatase 144 U/L (40-129) H Pro-B-Type Natriuretic Peptide 4235 pg/mL (0-450) H Total Protein 6.3 g/dL (6.6-8.7) L Albumin 3.0 g/dL (3.5-5.2) L Globulin 3.3 g/dL Albumin/Globulin Ratio 0.9 (1.0-2.7) L Arterial Blood pH 7.490 (7.350-7.450) Arterial Blood Partial Pressure CO2 42.0 mmHg (35.0-45.0) Arterial Blood Partial Pressure O2 53.0 mmHg (75.0-100.0) L Arterial Blood HCO3 31.3 mmol/L (22.0-26.0) H Arterial Blood Oxygen Saturation 88.3 % (92.0-98.0) L Arterial Blood Base Excess 7.2 Bryn Test Positive Current Medications Medications (Trade) Dose Ordered Sig/Jackie Route PRN Reason Start Time Stop Time Status Last Admin Dose Admin Albuterol/ Ipratropium (DuoNeb 0.5-3(2.5)mg/3ml) 3 ml Q4H PRN HHN dyspnea 11/14/16 08:00 11/19/16 07:59 11/17/16 07:01 Dextrose (Dextrose 50%) STAT PRN IV Hypoglycemia 11/10/16 22:00 12/10/16 21:59 Heparin Sodium (Porcine) (Heparin 5000 units/ml) 5,000 units EVERY 12 HOURS SUBQ 11/11/16 09:00 12/11/16 08:59 11/17/16 09:24 Insulin Aspart (NovoLOG) BEFORE MEALS AND HS SUBQ 11/11/16 06:30 12/11/16 06:29 11/16/16 20:48 Levothyroxine Sodium (Synthroid) 88 mcg DAILY@0630 ORAL 11/11/16 06:30 12/11/16 06:29 11/16/16 06:00 Lidocaine (Xylocaine 1% MPF 5ml) 10 ml Q8HRT HHN 11/12/16 23:00 12/12/16 22:59 11/17/16 07:02 Lorazepam (Ativan 2mg/ml 1ml) 2 mg Q4H PRN IV For Anxiety 11/17/16 12:15 11/24/16 12:14 Morphine Sulfate (Morphine Sulfate) 2 mg Q4H PRN IVP ModeratePain (Pain Scale 7-10) 11/17/16 12:38 11/22/16 08:59 Morphine Sulfate (Morphine Sulfate) 4 mg Q4H PRN IVP For Severe Pain 11/17/16 12:15 11/24/16 12:14 Nitroglycerin (Ntg) 0.4 mg Q5M X 3 DOSES PRN SL Prn Chest Pain 11/10/16 22:00 12/10/16 21:59 Ondansetron HCl (Zofran) 4 mg Q6H PRN IVP Nausea & Vomiting 11/10/16 22:00 12/10/16 21:59 Pantoprazole (Protonix) 40 mg DAILY IV 11/17/16 13:00 12/17/16 12:59 Potassium Chloride (K-Dur) 20 meq DAILY ORAL 11/14/16 09:00 12/14/16 08:59 11/16/16 09:01 Promethazine HCl/ Codeine (Phenergan with Codeine) 5 ml Q6H PRN ORAL cough 11/10/16 22:00 12/10/16 21:59 11/15/16 01:13 Vancomycin HCl 1 ea 1 ea DAILY PRN MISC Per rx protocol 11/12/16 14:45 12/12/16 14:44 Vancomycin HCl/ Dextrose (Vancomycin/D5W) 325 ml @ 162.5 mls/ hr Q24H IVPB 11/12/16 16:00 11/22/16 15:59 11/16/16 16:54 JOEL MAURO Nov 17, 2016 13:51
--- NOTE | 2016-11-17 13:55 | Diagnostic Imaging Report ---
Indication: DYSPNEA Technique: One view of the chest Comparison: 11/19/16 Findings: Diffuse generalized interstitial disease, previously thought to be chronic, is again demonstrated, appears unchanged. Heart size is normal. Aorta is tortuous and calcified. Impression: Unchanged, over one day, findings as above.
[2016-11-17] MEDS ORDERED: Meropenem 1 GM in NS 110 ML IVPB SCH (14:00)
[2016-11-17] MEDS ORDERED: Nitroglycerin Subl 0.4mg tab (Bottle Of 25) SL PRN (14:30)
[2016-11-17] MEDS ORDERED: Promethazine/Codeine 5ml UD ORAL PRN (16:00)
[2016-11-17] MEDS ORDERED: DuoNeb 0.5-3(2.5)mg/3ml neb HHN PRN (16:00)
[2016-11-17] MEDS: Vancomycin 1.5 GM in D5W 325 ML IVPB SCH (16:52)
[2016-11-17] MEDS: Meropenem 1 GM in NS 110 ML IVPB SCH (22:52)
[2016-11-18] VITALS (24 sets, daily range): BP systolic 78–166; BP diastolic 60–102
[2016-11-18 00:09] LABS: APPEARANCE,URINE CLEAR; KETONES,URINE NEGATIVE (NEGATIVE); LEUKOCYTE ESTERASE ,URINE NEGATIVE (NEGATIVE); NITRITE,URINE NEGATIVE (NEGATIVE); PH,URINE 6.5 (4.5-8.0); PROTEIN,URINE 2+ (NEGATIVE); UROBILINOGEN,URINE NORMAL MG/DL (0.0-1.0)
[2016-11-18 00:38] LABS: AMORPHOUS SEDIMENT,UR MODERATE /LPF; BACTERIA,URINE FEW /HPF; RBC,URINE 0-2 /HPF (0 - 0); SQUAMOUS EPITHELIAL CELL,UR OCCASIONAL /LPF (NONE/OCC); WBC,URINE 0-2 /HPF (0 - 0)
[2016-11-18] MEDS: Meropenem 1 GM in NS 110 ML IVPB SCH ×3 (05:46→21:47)
[2016-11-18] MEDS: NovoLOG Insulin Flexpen SUBQ SCH ×3 (05:49→18:16)
[2016-11-18 06:01] LABS: MEAN CORPUSCULAR HEMOGLOBIN 30.6 PG (27.0-31.0); MEAN CORPUSCULAR HGB CONC 31.9 G/DL (32.0-36.0); MEAN CORPUSCULAR VOLUME 96 FL (80-99); MEAN PLATELET VOLUME 9.2 FL (6.5-10.1); PLATELET COUNT 150 K/UL (150-450); RED BLOOD COUNT 4.66 M/UL (4.70-6.10); RED CELL DISTRIBUTION WIDTH 14.6 % (11.6-14.8)
[2016-11-18 06:04] LABS: WHITE BLOOD COUNT 27.4 K/UL (4.8-10.8)
[2016-11-18 06:08] LABS: ALANINE AMINOTRANSFERASE 26 U/L (3-41); ALBUMIN/GLOBULIN RATIO 0.7 (1.0-2.7); ANION GAP 17 (5-15); ASPARTATE AMINO TRANSFERASE 33 U/L (5-40); CALCIUM 8.7 mg/dL (8.6-10.2); CARBON DIOXIDE 29 mEQ/L (20-30); CHLORIDE 104 mEQ/L (98-107); CREATININE 1.1 mg/dL (0.7-1.2); HEMOLYSIS 7; MAGNESIUM 2.2 mg/dL (1.7-2.5); PHOSPHORUS 2.5 mg/dL (2.5-4.8); POTASSIUM 3.9 mEQ/L (3.4-4.9); SODIUM 150 mEQ/L (135-145); TOTAL PROTEIN 6.5 g/dL (6.6-8.7)
[2016-11-18 06:58] LABS: BILIRUBIN,DIRECT 0.4 mg/dL (0.1-0.3)
[2016-11-18 07:35] LABS: ABG PCO2 47.3 mmHg (35.0-45.0)
[2016-11-18 07:36] LABS: ABG ALLEN TEST POSITIVE; ABG BASE EXCESS 5.2
[2016-11-18] MEDS: Lidocaine 1% MPF 10mg/ml 5ml HHN SCH ×2 (07:38→15:06)
[2016-11-18] MEDS: Heparin 5000 units/ml inj SUBQ SCH ×2 (09:00→20:46)
[2016-11-18] MEDS: KCl 10% 20 mEq/15ml liquid ORAL SCH (09:00)
[2016-11-18] MEDS: Pantoprazole Inj IV SCH (09:00)
--- NOTE | 2016-11-18 10:23 | Diagnostic Imaging Report ---
Indication: Dyspnea Comparison: 11/17/2016 A single view chest radiograph was obtained. Findings: Cardiomegaly and interstitial edema are present. Vascular pedicle is widened. Impression: CHF. No interval change
[2016-11-18] MEDS: LORazepam Inj 2mg/ml 1ml IV PRN ×2 (10:45→17:06)
[2016-11-18 10:55] LABS: BAND NEUTROPHILS % (MANUAL) 0 % (0-8); BASOPHILS % (MANUAL) 0 % (0-2); EOSINOPHILS % (MANUAL) 1 % (0-3); LYMPHOCYTES % (MANUAL) 10 % (20-45); NEUTROPHILS % (MANUAL) 87 % (45-75); PLATELET ESTIMATE ADEQUATE; PLATELET MORPHOLOGY NORMAL; TOTAL CELLS COUNTED 100
--- NOTE | 2016-11-18 11:33 | Pulmonolgy Critical Care Note ---
Critical Care - Asmt/Plan Problems: (1) Acute respiratory failure (2) Interstitial lung disease (3) COPD (chronic obstructive pulmonary disease) (4) Advanced dementia (5) Pulmonary fibrosis (6) ATN (acute tubular necrosis) Respiratory: monitor respiratory rate, adjust FIO2 Cardiac: continue to monitor HR/BP Renal: F/U I&O, check electrolytes Infectious Disease: check cultures, continue antibiotics Gastrointestinal: continue feedings/current rate Endocrine: monitor blood sugar Hematologic: monitor H/H Neurologic: PRN Ativan, PRN Morphine Notes Reviewed: cardio, renal Discussed with: nurses, consultants, case linerwireless sales manager - Objective Last 24 Hour Vital Signs Date Time Temp Pulse Resp B/P Pulse Ox O2 Delivery O2 Flow Rate FiO2 11/18/16 10:00 105 14 163/102 98 Non-Rebreather 100 11/18/16 09:00 128 16 161/89 98 Non-Rebreather 100 11/18/16 08:00 99.0 114 32 158/96 98 Non-Rebreather 100 11/18/16 08:00 106 11/18/16 07:50 96 Non-Rebreather 15.0 100 11/18/16 07:50 Non-Rebreather 15.0 100 11/18/16 07:50 113 25 Non-Rebreather 15.0 100 11/18/16 07:38 113 25 96 Non-Rebreather 15.0 100 11/18/16 07:38 104 19 96 Non-Rebreather 15.0 100 11/18/16 07:00 101 16 166/96 95 Non-Rebreather 100 11/18/16 06:00 106 16 158/98 95 Non-Rebreather 100 11/18/16 05:00 110 16 151/60 95 Non-Rebreather 100 11/18/16 04:00 99.3 100 16 152/81 95 Non-Rebreather 100 11/18/16 04:00 105 11/18/16 03:00 99 16 158/60 95 Non-Rebreather 100 11/18/16 02:00 95 16 131/80 95 Non-Rebreather 100 11/18/16 01:00 93 16 139/78 95 Non-Rebreather 100 11/18/16 00:00 98.0 96 16 147/76 95 Non-Rebreather 100 11/18/16 00:00 96 11/17/16 23:29 98 16 98 Non-Rebreather 15.0 100 11/17/16 23:00 96 16 131/76 95 Non-Rebreather 100 11/17/16 22:40 105 19 96 Non-Rebreather 15.0 100 11/17/16 22:00 97 16 123/73 96 Non-Rebreather 100 11/17/16 21:00 95 16 111/71 96 Non-Rebreather 100 11/17/16 20:00 95 11/17/16 20:00 98.5 94 16 136/91 96 Non-Rebreather 100 11/17/16 19:00 94 16 138/71 96 Non-Rebreather 100 11/17/16 19:00 Non-Rebreather 15.0 90 11/17/16 19:00 94 Non-Rebreather 15.0 100 11/17/16 18:26 98.7 11/17/16 18:00 106 16 120/68 97 Non-Rebreather 100 11/17/16 17:00 108 26 129/76 95 Non-Rebreather 100 11/17/16 16:00 111 11/17/16 16:00 98.7 108 27 142/78 98 Non-Rebreather 100 11/17/16 15:52 111 18 95 Non-Rebreather 15.0 100 11/17/16 15:32 113 25 95 Non-Rebreather 15.0 100 11/17/16 15:00 106 27 124/78 95 Non-Rebreather 100 11/17/16 14:00 110 25 119/72 97 Non-Rebreather 100 11/17/16 13:00 116 23 137/88 92 Non-Rebreather 100 11/17/16 12:00 119 11/17/16 12:00 97.3 116 18 127/86 90 Non-Rebreather 100 Status: somnolent, other - short of breath Condition: critical HEENT: atraumatic Neck: full ROM Lungs: rales, rhonchi Heart: HR/BP stable Abdomen: soft, non-tender Extremities: no C/C/E, edema Micro: Microbiology Date/Time Source Procedure Growth Status 11/17/16 23:00 Sputum Expectorated Gram Stain - Final Resulted 11/17/16 23:00 Sputum Expectorated Sputum Culture Pending Resulted 11/17/16 23:00 Indwelling Cath Urine Culture - Preliminary NO GROWTH Resulted Accucheck: 130 Critical Care - Subjective ROS Limited/Unobtainable: Yes ICU Day: q Interval Events: note for 11/17/16: Pt was transferred to ICU because of the desaturation. Family initially agreed with intubation, since pt was desaturating on 100% non-rebreathing mask. After pt got to ICU, family started to refuse intubation,. but they still want full code. FI02: 100 Vent Support Breath Rate: 16 Vent Support Mode: CPAP Sputum Amount: None I&O: Intake and Output 11/17/16 11/18/16 19:00 07:00 Intake Total 0 ml 330 ml Output Total 350 ml 670 ml Balance -350 ml -340 ml Intake Oral 0 ml 0 ml IV Total 330 ml Output Urine Total 350 ml 670 ml # Voids 3 # Bowel Movements 1 CXR: uncahgned VERO COLLADO Nov 18, 2016 11:33
--- NOTE | 2016-11-18 11:38 | Pulmonolgy Critical Care Note ---
Critical Care - Asmt/Plan Problems: (1) Acute respiratory failure (2) Interstitial lung disease (3) COPD (chronic obstructive pulmonary disease) (4) Advanced dementia (5) Pulmonary fibrosis (6) ATN (acute tubular necrosis) Respiratory: monitor respiratory rate, adjust FIO2 Cardiac: continue to monitor HR/BP Renal: increase IV fluid, check electrolytes, other - check electrolytes Infectious Disease: check cultures, continue antibiotics Gastrointestinal: continue feedings/current rate Endocrine: monitor blood sugar, continue sliding scale insulin Hematologic: monitor H/H, transfuse if hgb<8.5 Neurologic: PRN Ativan, keep patient comfortable Affect: PRN ativan Prophylaxis: Protonix, Heparin Notes Reviewed: schedule analyst, cardio, renal Discussed with: nurses, case manager specialistreview manager - Objective Last 24 Hour Vital Signs Date Time Temp Pulse Resp B/P Pulse Ox O2 Delivery O2 Flow Rate FiO2 11/18/16 10:00 105 14 163/102 98 Non-Rebreather 100 11/18/16 09:00 128 16 161/89 98 Non-Rebreather 100 11/18/16 08:00 99.0 114 32 158/96 98 Non-Rebreather 100 11/18/16 08:00 106 11/18/16 07:50 96 Non-Rebreather 15.0 100 11/18/16 07:50 Non-Rebreather 15.0 100 11/18/16 07:50 113 25 Non-Rebreather 15.0 100 11/18/16 07:38 113 25 96 Non-Rebreather 15.0 100 11/18/16 07:38 104 19 96 Non-Rebreather 15.0 100 11/18/16 07:00 101 16 166/96 95 Non-Rebreather 100 11/18/16 06:00 106 16 158/98 95 Non-Rebreather 100 11/18/16 05:00 110 16 151/60 95 Non-Rebreather 100 11/18/16 04:00 99.3 100 16 152/81 95 Non-Rebreather 100 11/18/16 04:00 105 11/18/16 03:00 99 16 158/60 95 Non-Rebreather 100 11/18/16 02:00 95 16 131/80 95 Non-Rebreather 100 11/18/16 01:00 93 16 139/78 95 Non-Rebreather 100 11/18/16 00:00 98.0 96 16 147/76 95 Non-Rebreather 100 11/18/16 00:00 96 11/17/16 23:29 98 16 98 Non-Rebreather 15.0 100 11/17/16 23:00 96 16 131/76 95 Non-Rebreather 100 11/17/16 22:40 105 19 96 Non-Rebreather 15.0 100 11/17/16 22:00 97 16 123/73 96 Non-Rebreather 100 11/17/16 21:00 95 16 111/71 96 Non-Rebreather 100 11/17/16 20:00 95 11/17/16 20:00 98.5 94 16 136/91 96 Non-Rebreather 100 11/17/16 19:00 94 16 138/71 96 Non-Rebreather 100 11/17/16 19:00 Non-Rebreather 15.0 90 11/17/16 19:00 94 Non-Rebreather 15.0 100 11/17/16 18:26 98.7 11/17/16 18:00 106 16 120/68 97 Non-Rebreather 100 11/17/16 17:00 108 26 129/76 95 Non-Rebreather 100 11/17/16 16:00 111 11/17/16 16:00 98.7 108 27 142/78 98 Non-Rebreather 100 11/17/16 15:52 111 18 95 Non-Rebreather 15.0 100 11/17/16 15:32 113 25 95 Non-Rebreather 15.0 100 11/17/16 15:00 106 27 124/78 95 Non-Rebreather 100 11/17/16 14:00 110 25 119/72 97 Non-Rebreather 100 11/17/16 13:00 116 23 137/88 92 Non-Rebreather 100 11/17/16 12:00 119 11/17/16 12:00 97.3 116 18 127/86 90 Non-Rebreather 100 Status: somnolent Condition: critical HEENT: atraumatic, normocephalic Neck: full ROM Lungs: rales, rhonchi Heart: HR/BP stable Extremities: no C/C/E, edema Decubiti: location Micro: Microbiology Date/Time Source Procedure Growth Status 11/17/16 23:00 Sputum Expectorated Gram Stain - Final Resulted 11/17/16 23:00 Sputum Expectorated Sputum Culture Pending Resulted 11/17/16 23:00 Indwelling Cath Urine Culture - Preliminary NO GROWTH Resulted Accucheck: 130 Critical Care - Subjective ROS Limited/Unobtainable: Yes ICU Day: 2 Condition: critical EKG Rhythm: Sinus Rhythm FI02: 100 Vent Support Breath Rate: 16 Vent Support Mode: CPAP Sputum Amount: None Fluids: d5w 100 cc/hour I&O: Intake and Output 11/17/16 11/18/16 19:00 07:00 Intake Total 0 ml 330 ml Output Total 350 ml 670 ml Balance -350 ml -340 ml Intake Oral 0 ml 0 ml IV Total 330 ml Output Urine Total 350 ml 670 ml # Voids 3 # Bowel Movements 1 CXR: bilateral interstitial disease Labs: Laboratory Tests Test 11/17/16 12:13 11/17/16 23:00 11/18/16 03:30 11/18/16 04:00 Arterial Blood pH 7.490 (7.350-7.450) 7.429 (7.350-7.450) Arterial Blood Partial Pressure CO2 42.0 mmHg (35.0-45.0) 47.3 mmHg (35.0-45.0) H Arterial Blood Partial Pressure O2 53.0 mmHg (75.0-100.0) L 41.5 mmHg (75.0-100.0) Arterial Blood HCO3 31.3 mmol/L (22.0-26.0) H 30.6 mmol/L (22.0-26.0) H Arterial Blood Oxygen Saturation 88.3 % (92.0-98.0) L 76.0 % (92.0-98.0) L Arterial Blood Base Excess 7.2 5.2 Bryn Test Positive Positive Urine Color Yellow Urine Appearance Clear Urine pH 6.5 (4.5-8.0) Urine Specific [place] 1.010 (1.005-1.035) Urine Protein 2+ (NEGATIVE) H Urine Glucose (UA) Negative (NEGATIVE) Urine Ketones Negative (NEGATIVE) Urine Occult Blood 3+ (NEGATIVE) H Urine Nitrite Negative (NEGATIVE) Urine Bilirubin Negative (NEGATIVE) Urine Urobilinogen Normal MG/DL (0.0-1.0) Urine Leukocyte Esterase Negative (NEGATIVE) Urine RBC 0-2 /HPF (0 - 0) H Urine WBC 0-2 /HPF (0 - 0) Urine Squamous Epithelial Cells Occasional /LPF Urine Amorphous Sediment Moderate /LPF (NONE) H Urine Bacteria Few /HPF (NONE) White Blood Count 27.4 K/UL (4.8-10.8) *H Red Blood Count 4.66 M/UL (4.70-6.10) L Hemoglobin 14.2 G/DL (14.2-18.0) Hematocrit 44.6 % (42.0-52.0) Mean Corpuscular Volume 96 FL (80-99) Mean Corpuscular Hemoglobin 30.6 PG (27.0-31.0) Mean Corpuscular Hemoglobin Concent 31.9 G/DL (32.0-36.0) L Red Cell Distribution Width 14.6 % (11.6-14.8) Platelet Count 150 K/UL (150-450) Mean Platelet Volume 9.2 FL (6.5-10.1) Neutrophils (%) (Auto) % (45.0-75.0) Lymphocytes (%) (Auto) % (20.0-45.0) Monocytes (%) (Auto) % (1.0-10.0) Eosinophils (%) (Auto) % (0.0-3.0) Basophils (%) (Auto) % (0.0-2.0) Differential Total Cells Counted 100 Neutrophils % (Manual) 87 % (45-75) H Lymphocytes % (Manual) 10 % (20-45) L Monocytes % (Manual) 2 % (1-10) Eosinophils % (Manual) 1 % (0-3) Basophils % (Manual) 0 % (0-2) Band Neutrophils 0 % (0-8) Platelet Estimate Adequate Platelet Morphology Normal Red Blood Cell Morphology Normal Sodium Level 150 mEQ/L (135-145) H Potassium Level 3.9 mEQ/L (3.4-4.9) Chloride Level 104 mEQ/L (98-107) Carbon Dioxide Level 29 mEQ/L (20-30) Anion Gap 17 (5-15) H Blood Urea Nitrogen 37 mg/dL (7-23) H Creatinine 1.1 mg/dL (0.7-1.2) Estimat Glomerular Filtration Rate mL/min (>60) Glucose Level 158 mg/dL (74-106) H Calcium Level 8.7 mg/dL (8.6-10.2) Phosphorus Level 2.5 mg/dL (2.5-4.8) Magnesium Level 2.2 mg/dL (1.7-2.5) Total Bilirubin 1.2 mg/dL (0.0-1.2) Direct Bilirubin 0.4 mg/dL (0.1-0.3) H Aspartate Amino Transf (AST/SGOT) 33 U/L (5-40) Alanine Aminotransferase (ALT/SGPT) 26 U/L (3-41) Alkaline Phosphatase 162 U/L (40-129) H Total Protein 6.5 g/dL (6.6-8.7) L Albumin 2.7 g/dL (3.5-5.2) L Globulin 3.8 g/dL Albumin/Globulin Ratio 0.7 (1.0-2.7) L VERO COLLADO Nov 18, 2016 11:37
--- NOTE | 2016-11-18 13:26 | Infectious Diseases Prog Note ---
Assessment/Plan Assessment/Plan ASSESSMENT: 86 y/o male with: // CONS bacteremia 3 ?source - repeat BCx CONS /4 // Acute on chronic respiratory failure 2/2 end-stage pulmonary fibrosis SP BiPAP-->VM - SCx NRF, repeat NRF - CXR 11/16: Extensive interstitial disease - CT Chest 11/06: Bronchiectasis and honeycombing, indicative of end-stage interstitial fibrosis, nonspecific as regards etiology. Subpleural blebs or bullae, could indicate COPD changes. No definite acute pulmonary process. Mediastinal lymphadenopathy. This may be reactive, inflammatory, or neoplastic - h/o O2-dependent pulmonary, fibrosis - negative: influenza, legionella UAg // Acute leukocytosis - improved, afebrile r/o new infection. Repeat cultures NGTD ( after starting steroids ) // CKD3 // Elevated LFTs - improved, hepatitis panel(-) - US: Negative for gallstones or dilated ducts // Advance dementia // NKDA // Full Code PLAN: - continue IV vancomycin d# 7 / , meropenem d# 2 ( 11/13 SP zosyn d# 7 / 7 ) ( 11/10 SP levaquin d# 7 ) - taper steroids per pulm - f/u new cultures - monitor CBC, temperatures - monitor BMP - monitor CXR Subjective Allergies: Coded Allergies: No Known Allergies (Unverified , 11/04/16) Subjective remains afebrile, hypoxic WBC improved, repeat cultures NGTD Objective Vital Signs Last 24 Hour Vital Signs Date Time Temp Pulse Resp B/P Pulse Ox O2 Delivery O2 Flow Rate FiO2 11/18/16 13:00 101 14 130/78 98 Non-Rebreather 100 11/18/16 12:00 98.0 105 15 131/86 98 Non-Rebreather 100 11/18/16 12:00 105 11/18/16 11:00 106 14 106/73 98 Non-Rebreather 100 11/18/16 10:00 105 14 163/102 98 Non-Rebreather 100 11/18/16 09:00 128 16 161/89 98 Non-Rebreather 100 11/18/16 08:00 99.0 114 32 158/96 98 Non-Rebreather 100 11/18/16 08:00 106 11/18/16 07:50 96 Non-Rebreather 15.0 100 2/22/17 07:50 Non-Rebreather 15.0 100 11/18/16 07:50 113 25 Non-Rebreather 15.0 100 11/18/16 07:38 113 25 96 Non-Rebreather 15.0 100 11/18/16 07:38 104 19 96 Non-Rebreather 15.0 100 11/18/16 07:00 101 16 166/96 95 Non-Rebreather 100 11/18/16 06:00 106 16 158/98 95 Non-Rebreather 100 11/18/16 05:00 110 16 151/60 95 Non-Rebreather 100 11/18/16 04:00 99.3 100 16 152/81 95 Non-Rebreather 100 11/18/16 04:00 105 11/18/16 03:00 99 16 158/60 95 Non-Rebreather 100 11/18/16 02:00 95 16 131/80 95 Non-Rebreather 100 11/18/16 01:00 93 16 139/78 95 Non-Rebreather 100 11/18/16 00:00 98.0 96 16 147/76 95 Non-Rebreather 100 11/18/16 00:00 96 11/17/16 23:29 98 16 98 Non-Rebreather 15.0 100 11/17/16 23:00 96 16 131/76 95 Non-Rebreather 100 11/17/16 22:40 105 19 96 Non-Rebreather 15.0 100 11/17/16 22:00 97 16 123/73 96 Non-Rebreather 100 11/17/16 21:00 95 16 111/71 96 Non-Rebreather 100 11/17/16 20:00 95 11/17/16 20:00 98.5 94 16 136/91 96 Non-Rebreather 100 11/17/16 19:00 94 16 138/71 96 Non-Rebreather 100 11/17/16 19:00 Non-Rebreather 15.0 90 11/17/16 19:00 94 Non-Rebreather 15.0 100 11/17/16 18:26 98.7 11/17/16 18:00 106 16 120/68 97 Non-Rebreather 100 11/17/16 17:00 108 26 129/76 95 Non-Rebreather 100 11/17/16 16:00 111 11/17/16 16:00 98.7 108 27 142/78 98 Non-Rebreather 100 11/17/16 15:52 111 18 95 Non-Rebreather 15.0 100 11/17/16 15:32 113 25 95 Non-Rebreather 15.0 100 11/17/16 15:00 106 27 124/78 95 Non-Rebreather 100 11/17/16 14:00 110 25 119/72 97 Non-Rebreather 100 Height (Feet): 5 Height (Inches): 6.00 Weight (Pounds): 160 General Appearance: no acute distress Respiratory/Chest: decreased breath sounds Cardiovascular: normal rate, regular rhythm Abdomen: normal bowel sounds, soft, non tender, non distended Microbiology Date/Time Source Procedure Growth Status 11/17/16 23:00 Sputum Expectorated Gram Stain - Final Resulted 11/17/16 23:00 Sputum Expectorated Sputum Culture Pending Resulted 11/17/16 23:00 Indwelling Cath Urine Culture - Preliminary NO GROWTH Resulted Laboratory Tests Test 11/17/16 23:00 11/18/16 03:30 11/18/16 04:00 Urine Color Yellow Urine Appearance Clear Urine pH 6.5 (4.5-8.0) Urine Specific [place] 1.010 (1.005-1.035) Urine Protein 2+ (NEGATIVE) H Urine Glucose (UA) Negative (NEGATIVE) Urine Ketones Negative (NEGATIVE) Urine Occult Blood 3+ (NEGATIVE) H Urine Nitrite Negative (NEGATIVE) Urine Bilirubin Negative (NEGATIVE) Urine Urobilinogen Normal MG/DL (0.0-1.0) Urine Leukocyte Esterase Negative (NEGATIVE) Urine RBC 0-2 /HPF (0 - 0) H Urine WBC 0-2 /HPF (0 - 0) Urine Squamous Epithelial Cells Occasional /LPF Urine Amorphous Sediment Moderate /LPF (NONE) H Urine Bacteria Few /HPF (NONE) White Blood Count 27.4 K/UL (4.8-10.8) *H Red Blood Count 4.66 M/UL (4.70-6.10) L Hemoglobin 14.2 G/DL (14.2-18.0) Hematocrit 44.6 % (42.0-52.0) Mean Corpuscular Volume 96 FL (80-99) Mean Corpuscular Hemoglobin 30.6 PG (27.0-31.0) Mean Corpuscular Hemoglobin Concent 31.9 G/DL (32.0-36.0) L Red Cell Distribution Width 14.6 % (11.6-14.8) Platelet Count 150 K/UL (150-450) Mean Platelet Volume 9.2 FL (6.5-10.1) Neutrophils (%) (Auto) % (45.0-75.0) Lymphocytes (%) (Auto) % (20.0-45.0) Monocytes (%) (Auto) % (1.0-10.0) Eosinophils (%) (Auto) % (0.0-3.0) Basophils (%) (Auto) % (0.0-2.0) Differential Total Cells Counted 100 Neutrophils % (Manual) 87 % (45-75) H Lymphocytes % (Manual) 10 % (20-45) L Monocytes % (Manual) 2 % (1-10) Eosinophils % (Manual) 1 % (0-3) Basophils % (Manual) 0 % (0-2) Band Neutrophils 0 % (0-8) Platelet Estimate Adequate Platelet Morphology Normal Red Blood Cell Morphology Normal Sodium Level 150 mEQ/L (135-145) H Potassium Level 3.9 mEQ/L (3.4-4.9) Chloride Level 104 mEQ/L (98-107) Carbon Dioxide Level 29 mEQ/L (20-30) Anion Gap 17 (5-15) H Blood Urea Nitrogen 37 mg/dL (7-23) H Creatinine 1.1 mg/dL (0.7-1.2) Estimat Glomerular Filtration Rate mL/min (>60) Glucose Level 158 mg/dL (74-106) H Calcium Level 8.7 mg/dL (8.6-10.2) Phosphorus Level 2.5 mg/dL (2.5-4.8) Magnesium Level 2.2 mg/dL (1.7-2.5) Total Bilirubin 1.2 mg/dL (0.0-1.2) Direct Bilirubin 0.4 mg/dL (0.1-0.3) H Aspartate Amino Transf (AST/SGOT) 33 U/L (5-40) Alanine Aminotransferase (ALT/SGPT) 26 U/L (3-41) Alkaline Phosphatase 162 U/L (40-129) H Total Protein 6.5 g/dL (6.6-8.7) L Albumin 2.7 g/dL (3.5-5.2) L Globulin 3.8 g/dL Albumin/Globulin Ratio 0.7 (1.0-2.7) L Arterial Blood pH 7.429 (7.350-7.450) Arterial Blood Partial Pressure CO2 47.3 mmHg (35.0-45.0) H Arterial Blood Partial Pressure O2 41.5 mmHg (75.0-100.0) Arterial Blood HCO3 30.6 mmol/L (22.0-26.0) H Arterial Blood Oxygen Saturation 76.0 % (92.0-98.0) L Arterial Blood Base Excess 5.2 Bryn Test Positive Current Medications Medications (Trade) Dose Ordered Sig/Jackie Route PRN Reason Start Time Stop Time Status Last Admin Dose Admin Albuterol/ Ipratropium (DuoNeb 0.5-3(2.5)mg/3ml) 3 ml Q4H PRN HHN dyspnea 11/17/16 16:00 11/22/16 15:59 11/18/16 07:39 Dextrose (D5W 1000ml) 1,000 ml @ 100 mls/hr Q10H IV 11/18/16 11:45 12/18/16 11:44 11/18/16 11:56 Dextrose (Dextrose 50%) STAT PRN IV Hypoglycemia 11/17/16 22:00 12/17/16 21:59 Heparin Sodium (Porcine) (Heparin 5000 units/ml) 5,000 units EVERY 12 HOURS SUBQ 11/17/16 21:00 12/17/16 20:59 11/18/16 09:00 Insulin Aspart (NovoLOG) EVERY 6 HOURS SUBQ 11/18/16 12:00 12/18/16 11:59 11/18/16 12:00 Levothyroxine Sodium (Synthroid) 88 mcg DAILY@0630 ORAL 11/18/16 06:30 12/18/16 06:29 11/18/16 05:46 Lidocaine (Xylocaine 1% MPF 5ml) 10 ml Q8HRT HHN 11/17/16 15:00 12/17/16 14:59 11/18/16 07:38 Lorazepam (Ativan 2mg/ml 1ml) 2 mg Q4H PRN IV For Anxiety 11/17/16 16:15 11/24/16 16:14 11/18/16 10:45 Meropenem 1 gm/ Sodium Chloride 110 ml @ 220 mls/hr Q8HR IVPB 11/17/16 22:00 11/22/16 21:59 11/18/16 05:46 Morphine Sulfate (Morphine Sulfate) 2 mg Q4H PRN IVP ModeratePain (Pain Scale 7-10) 11/17/16 16:45 11/24/16 16:44 11/17/16 17:56 Morphine Sulfate (Morphine Sulfate) 4 mg Q4H PRN IVP For Severe Pain 11/17/16 16:15 11/24/16 16:14 Nitroglycerin (Ntg) 0.4 mg Q5M X 3 DOSES PRN SL Prn Chest Pain 11/17/16 14:30 12/17/16 14:29 Ondansetron HCl (Zofran) 4 mg Q6H PRN IVP Nausea & Vomiting 11/17/16 16:00 12/17/16 15:59 11/18/16 10:45 Pantoprazole (Protonix) 40 mg DAILY IV 11/18/16 09:00 12/18/16 08:59 11/18/16 09:00 Potassium Chloride 20 meq 20 meq DAILY ORAL 11/18/16 09:00 12/18/16 08:59 Promethazine HCl/ Codeine (Phenergan with Codeine) 5 ml Q6H PRN ORAL cough 11/17/16 16:00 12/17/16 15:59 Vancomycin HCl (Vanco rx to dose) 1 ea DAILY PRN MISC Per rx protocol 11/18/16 09:00 12/18/16 08:59 Vancomycin HCl/ Dextrose (Vancomycin/D5W) 325 ml @ 162.5 mls/ hr Q24H IVPB 11/17/16 16:00 11/22/16 15:59 11/17/16 16:52 JOEL MAURO Nov 18, 2016 13:26
[2016-11-18 13:52] LABS: ABG ALLEN TEST POSITIVE; ABG BASE EXCESS 6.9; ABG PCO2 52.7 mmHg (35.0-45.0)
[2016-11-18] MEDS ORDERED: Propofol 10mg/ml 20ml IV ONE (14:00)
[2016-11-18] MEDS: Vancomycin 1.5 GM in D5W 325 ML IVPB SCH (15:51)
[2016-11-19] VITALS (16 sets, daily range): BP systolic 90–167; BP diastolic 51–104
[2016-11-19] MEDS: Lidocaine 1% MPF 10mg/ml 5ml HHN SCH ×2 (00:02→06:29)
[2016-11-19 05:41] LABS: MEAN CORPUSCULAR HEMOGLOBIN 30.7 PG (27.0-31.0); MEAN CORPUSCULAR HGB CONC 31.6 G/DL (32.0-36.0); MEAN CORPUSCULAR VOLUME 97 FL (80-99); MEAN PLATELET VOLUME 9.6 FL (6.5-10.1); PLATELET COUNT 114 K/UL (150-450); RED CELL DISTRIBUTION WIDTH 14.4 % (11.6-14.8)
[2016-11-19 05:46] LABS: WHITE BLOOD COUNT 23.9 K/UL (4.8-10.8)
[2016-11-19 06:05] LABS: ALANINE AMINOTRANSFERASE 18 U/L (3-41); ALBUMIN/GLOBULIN RATIO 0.7 (1.0-2.7); ANION GAP 12 (5-15); ASPARTATE AMINO TRANSFERASE 28 U/L (5-40); CALCIUM 8.7 mg/dL (8.6-10.2); CARBON DIOXIDE 32 mEQ/L (20-30); CHLORIDE 102 mEQ/L (98-107); HEMOLYSIS 7; MAGNESIUM 2.2 mg/dL (1.7-2.5); PHOSPHORUS 1.6 mg/dL (2.5-4.8); POTASSIUM 3.9 mEQ/L (3.4-4.9); SODIUM 146 mEQ/L (135-145)
[2016-11-19 06:31] LABS: BILIRUBIN,DIRECT 0.5 mg/dL (0.1-0.3)
[2016-11-19] MEDS: Meropenem 1 GM in NS 110 ML IVPB SCH ×2 (06:34→12:27)
[2016-11-19] MEDS: NovoLOG Insulin Flexpen SUBQ SCH ×3 (06:36→12:24)
[2016-11-19 07:04] LABS: ABG PCO2 49.7 mmHg (35.0-45.0)
[2016-11-19 07:05] LABS: ABG ALLEN TEST POSITIVE; ABG BASE EXCESS 4.7
[2016-11-19 07:22] LABS: ABG ALLEN TEST POSITIVE; ABG BASE EXCESS 8.5; ABG PCO2 49.7 mmHg (35.0-45.0)
[2016-11-19 07:35] LABS: BAND NEUTROPHILS % (MANUAL) 0 % (0-8); BASOPHILS % (MANUAL) 0 % (0-2); EOSINOPHILS % (MANUAL) 3 % (0-3); LYMPHOCYTES % (MANUAL) 1 % (20-45); NEUTROPHILS % (MANUAL) 93 % (45-75); PLATELET ESTIMATE DECREASED; TOTAL CELLS COUNTED 100
[2016-11-19 07:36] LABS: PLATELET MORPHOLOGY NORMAL
[2016-11-19] MEDS: KCl 10% 20 mEq/15ml liquid ORAL SCH (09:00)
[2016-11-19] MEDS: LORazepam Inj 2mg/ml 1ml IV PRN (10:04)
[2016-11-19] MEDS: Pantoprazole Inj IV SCH (10:04)
[2016-11-19] MEDS: Heparin 5000 units/ml inj SUBQ SCH (10:06)
--- NOTE | 2016-11-19 10:58 | Pulmonolgy Critical Care Note ---
Critical Care - Asmt/Plan Problems: (1) Acute respiratory failure (2) Interstitial lung disease (3) COPD (chronic obstructive pulmonary disease) (4) Advanced dementia (5) Pulmonary fibrosis (6) ATN (acute tubular necrosis) Respiratory: monitor respiratory rate, adjust FIO2, CXR Cardiac: continue to monitor HR/BP Renal: F/U I&O, keep IV fluid, check electrolytes Gastrointestinal: other - can't tolerate feeding, Endocrine: monitor blood sugar, continue sliding scale insulin Hematologic: monitor H/H, transfuse if hgb<8.5 Neurologic: PRN Ativan, PRN Morphine, keep patient comfortable Affect: PRN ativan Disposition: keep in ICU Notes Reviewed: cardio, renal Discussed with: nurses, consultants, dependency case managersocial media content manager - Objective Last 24 Hour Vital Signs Date Time Temp Pulse Resp B/P Pulse Ox O2 Delivery O2 Flow Rate FiO2 11/19/16 07:00 100 17 165/83 93 Non-Rebreather 100 11/19/16 06:30 106 22 92 Non-Rebreather 15.0 100 11/19/16 06:29 104 25 95 Non-Rebreather 15.0 100 11/19/16 06:21 95 Non-Rebreather 15.0 100 11/19/16 06:21 Non-Rebreather 15.0 100 11/19/16 06:21 118 22 Non-Rebreather 15.0 100 11/19/16 06:00 103 17 165/83 93 Non-Rebreather 100 11/19/16 05:00 105 17 162/87 96 Non-Rebreather 100 11/19/16 04:00 105 11/19/16 04:00 98.0 106 17 158/78 96 Non-Rebreather 100 11/19/16 03:00 104 17 167/85 96 Non-Rebreather 100 11/19/16 02:00 101 17 150/78 96 Non-Rebreather 100 11/19/16 01:00 93 17 150/83 96 Non-Rebreather 100 11/19/16 00:00 97.8 100 17 166/87 96 Non-Rebreather 100 11/19/16 00:00 100 11/18/16 23:50 97 20 98 Non-Rebreather 15.0 100 11/18/16 23:30 97 20 95 Non-Rebreather 15.0 100 11/18/16 23:00 94 17 160/82 96 Non-Rebreather 100 11/18/16 22:00 94 17 141/79 96 Non-Rebreather 100 11/18/16 21:00 92 19 156/83 97 Non-Rebreather 100 11/18/16 20:00 105 11/18/16 20:00 97.1 86 16 130/70 99 Non-Rebreather 100 11/18/16 19:30 98 Non-Rebreather 15.0 100 11/18/16 19:30 Non-Rebreather 15.0 100 11/18/16 19:30 88 24 Non-Rebreather 15.0 100 11/18/16 19:00 90 18 124/91 99 Non-Rebreather 100 11/18/16 18:00 90 18 128/74 99 Non-Rebreather 100 11/18/16 17:00 101 18 132/80 94 Non-Rebreather 100 11/18/16 16:00 97.1 98 26 148/80 100 Non-Rebreather 100 11/18/16 16:00 95 11/18/16 15:08 106 20 97 Non-Rebreather 15.0 100 11/18/16 15:08 108 20 97 Non-Rebreather 15.0 100 11/18/16 15:00 95 16 149/85 100 Non-Rebreather 100 11/18/16 14:00 95 15 118/75 100 Non-Rebreather 100 11/18/16 13:00 101 14 130/78 98 Non-Rebreather 100 11/18/16 12:00 98.0 105 15 131/86 98 Non-Rebreather 100 11/18/16 12:00 105 11/18/16 11:00 106 14 106/73 98 Non-Rebreather 100 Status: awake Condition: critical, improving HEENT: atraumatic, normocephalic Neck: full ROM Lungs: clear, chest wall tender Heart: HR/BP unstable Abdomen: soft, non-tender, active bowel sounds, feeding tube Extremities: no C/C/E, edema Decubiti: location Micro: Microbiology Date/Time Source Procedure Growth Status 11/17/16 15:15 Blood Blood Culture - Preliminary NO GROWTH AFTER 24 HOURS Resulted 11/17/16 15:10 Blood Blood Culture - Preliminary NO GROWTH AFTER 24 HOURS Resulted 11/17/16 23:00 Sputum Expectorated Gram Stain - Final Resulted 11/17/16 23:00 Sputum Expectorated Sputum Culture Pending Resulted 11/17/16 23:00 Indwelling Cath Urine Culture - Preliminary NO GROWTH AFTER 24 HOURS Resulted Accucheck: 145 Critical Care - Subjective ROS Limited/Unobtainable: No ICU Day: 3 Condition: critical FI02: 100 Vent Support Breath Rate: 16 Vent Support Mode: CPAP Sputum Amount: Small I&O: Intake and Output 11/18/16 11/19/16 18:59 06:59 Intake Total 835 ml 1295 ml Output Total 695 ml 485 ml Balance 140 ml 810 ml Intake Oral 0 ml 0 ml IV Total 835 ml 1295 ml Output Urine Total 695 ml 485 ml CXR: no better, the same Labs: Laboratory Tests Test 11/18/16 13:45 11/19/16 04:10 11/19/16 06:50 11/19/16 07:15 Arterial Blood pH 7.415 (7.350-7.450) 7.407 (7.350-7.450) 7.452 (7.350-7.450) Arterial Blood Partial Pressure CO2 52.7 mmHg (35.0-45.0) H 49.7 mmHg (35.0-45.0) H 49.7 mmHg (35.0-45.0) H Arterial Blood Partial Pressure O2 81.8 mmHg (75.0-100.0) 37.9 mmHg (75.0-100.0) 58.3 mmHg (75.0-100.0) L Arterial Blood HCO3 33.0 mmol/L (22.0-26.0) H 30.6 mmol/L (22.0-26.0) H 33.9 mmol/L (22.0-26.0) H Arterial Blood Oxygen Saturation 95.5 % (92.0-98.0) 0.0 % (92.0-98.0) L 90.3 % (92.0-98.0) L Arterial Blood Base Excess 6.9 4.7 8.5 Brny Test Positive Positive Positive White Blood Count 23.9 K/UL (4.8-10.8) *H Red Blood Count 4.70 M/UL (4.70-6.10) Hemoglobin 14.4 G/DL (14.2-18.0) Hematocrit 45.6 % (42.0-52.0) Mean Corpuscular Volume 97 FL (80-99) Mean Corpuscular Hemoglobin 30.7 PG (27.0-31.0) Mean Corpuscular Hemoglobin Concent 31.6 G/DL (32.0-36.0) L Red Cell Distribution Width 14.4 % (11.6-14.8) Platelet Count 114 K/UL (150-450) L Mean Platelet Volume 9.6 FL (6.5-10.1) Neutrophils (%) (Auto) % (45.0-75.0) Lymphocytes (%) (Auto) % (20.0-45.0) Monocytes (%) (Auto) % (1.0-10.0) Eosinophils (%) (Auto) % (0.0-3.0) Basophils (%) (Auto) % (0.0-2.0) Differential Total Cells Counted 100 Neutrophils % (Manual) 93 % (45-75) H Lymphocytes % (Manual) 1 % (20-45) L Monocytes % (Manual) 3 % (1-10) Eosinophils % (Manual) 3 % (0-3) Basophils % (Manual) 0 % (0-2) Band Neutrophils 0 % (0-8) Platelet Estimate Decreased L Platelet Morphology Normal Red Blood Cell Morphology Normal Sodium Level 146 mEQ/L (135-145) H Potassium Level 3.9 mEQ/L (3.4-4.9) Chloride Level 102 mEQ/L (98-107) Carbon Dioxide Level 32 mEQ/L (20-30) H Anion Gap 12 (5-15) Blood Urea Nitrogen 32 mg/dL (7-23) H Creatinine 1.0 mg/dL (0.7-1.2) Estimat Glomerular Filtration Rate mL/min (>60) Glucose Level 139 mg/dL (74-106) H Calcium Level 8.7 mg/dL (8.6-10.2) Phosphorus Level 1.6 mg/dL (2.5-4.8) L Magnesium Level 2.2 mg/dL (1.7-2.5) Total Bilirubin 1.3 mg/dL (0.0-1.2) H Direct Bilirubin 0.5 mg/dL (0.1-0.3) H Aspartate Amino Transf (AST/SGOT) 28 U/L (5-40) Alanine Aminotransferase (ALT/SGPT) 18 U/L (3-41) Alkaline Phosphatase 191 U/L (40-129) H Total Protein 6.0 g/dL (6.6-8.7) L Albumin 2.6 g/dL (3.5-5.2) L Globulin 3.4 g/dL Albumin/Globulin Ratio 0.7 (1.0-2.7) L VERO COLLADO Nov 19, 2016 10:58
--- NOTE | 2016-11-19 11:17 | Diagnostic Imaging Report ---
Indication: DYSPNEA Technique: One view of the chest Comparison: 11/18/2016 Findings: Stable bilateral diffuse interstitial and alveolar disease, previously thought to be largely on the basis of chronic interstitial fibrosis. This is unchanged. Pleural spaces remain clear. Heart size is normal. Upper mediastinal prominence persists, stable Impression: Unchanged, over one day, findings as above.
[2016-11-19] MEDS ORDERED: Nitroglycerin Subl 0.4mg tab (Bottle Of 25) SL PRN (13:30)
--- NOTE | 2016-11-19 13:42 | Infectious Diseases Prog Note ---
Assessment/Plan Assessment/Plan ASSESSMENT: 86 y/o male with: // CONS bacteremia 11/28 ?source - repeat BCx CONS 09/30, repeat NGTD // Acute on chronic respiratory failure 10/29 end-stage pulmonary fibrosis SP BiPAP-->VM - SCx NRF, repeat NRF - CXR 11/19: Extensive interstitial disease, stable - CT Chest 11/06: Bronchiectasis and honeycombing, indicative of end-stage interstitial fibrosis, nonspecific as regards etiology. Subpleural blebs or bullae, could indicate COPD changes. No definite acute pulmonary process. Mediastinal lymphadenopathy. This may be reactive, inflammatory, or neoplastic - h/o O2-dependent pulmonary, fibrosis - negative: influenza, legionella UAg // Acute leukocytosis - improved, afebrile r/o new infection. Repeat cultures NGTD ( after starting steroids ) // CKD3 // Elevated LFTs - improved, hepatitis panel(-) - US: Negative for gallstones or dilated ducts // Advance dementia // NKDA // Full Code PLAN: - continue IV vancomycin d# 8 / , meropenem d# 3 / 7 ( 11/13 SP zosyn d# 7 / 7 ) ( 11/10 SP levaquin d# 7 ) - taper steroids per pulm - f/u new cultures - monitor CBC, temperatures - monitor BMP - monitor CXR Subjective Allergies: Coded Allergies: No Known Allergies (Unverified , 11/04/16) Subjective remains afebrile, hypoxic WBC improved, repeat cultures NGTD transferring to floor Objective Vital Signs Last 24 Hour Vital Signs Date Time Temp Pulse Resp B/P Pulse Ox O2 Delivery O2 Flow Rate FiO2 11/19/16 13:00 90 20 123/61 98 Non-Rebreather 100 11/19/16 12:00 90 11/19/16 12:00 98.1 91 18 90/51 98 Non-Rebreather 100 11/19/16 11:00 91 18 110/65 98 Non-Rebreather 100 11/19/16 10:00 98 15 109/71 100 Non-Rebreather 100 11/19/16 09:00 109 16 139/67 93 Non-Rebreather 100 11/19/16 08:00 91 11/19/16 08:00 98.0 128 18 164/80 93 Non-Rebreather 100 11/19/16 07:00 100 17 165/83 93 Non-Rebreather 100 11/19/16 06:30 106 22 92 Non-Rebreather 15.0 100 11/19/16 06:29 104 25 95 Non-Rebreather 15.0 100 11/19/16 06:21 95 Non-Rebreather 15.0 100 11/19/16 06:21 Non-Rebreather 15.0 100 11/19/16 06:21 118 22 Non-Rebreather 15.0 100 11/19/16 06:00 103 17 165/83 93 Non-Rebreather 100 11/19/16 05:00 105 17 162/87 96 Non-Rebreather 100 11/19/16 04:00 105 11/19/16 04:00 98.0 106 17 158/78 96 Non-Rebreather 100 11/19/16 03:00 104 17 167/85 96 Non-Rebreather 100 11/19/16 02:00 101 17 150/78 96 Non-Rebreather 100 11/19/16 01:00 93 17 150/83 96 Non-Rebreather 100 11/19/16 00:00 97.8 100 17 166/87 96 Non-Rebreather 100 11/19/16 00:00 100 11/18/16 23:50 97 20 98 Non-Rebreather 15.0 100 11/18/16 23:30 97 20 95 Non-Rebreather 15.0 100 11/18/16 23:00 94 17 160/82 96 Non-Rebreather 100 11/18/16 22:00 94 17 141/79 96 Non-Rebreather 100 11/18/16 21:00 92 19 156/83 97 Non-Rebreather 100 11/18/16 20:00 105 11/18/16 20:00 97.1 86 16 130/70 99 Non-Rebreather 100 11/18/16 19:30 98 Non-Rebreather 15.0 100 11/18/16 19:30 Non-Rebreather 15.0 100 11/18/16 19:30 88 24 Non-Rebreather 15.0 100 11/18/16 19:00 90 18 124/91 99 Non-Rebreather 100 11/18/16 18:00 90 18 128/74 99 Non-Rebreather 100 11/18/16 17:00 101 18 132/80 94 Non-Rebreather 100 11/18/16 16:00 97.1 98 26 148/80 100 Non-Rebreather 100 11/18/16 16:00 95 11/18/16 15:08 106 20 97 Non-Rebreather 15.0 100 11/18/16 15:08 108 20 97 Non-Rebreather 15.0 100 11/18/16 15:00 95 16 149/85 100 Non-Rebreather 100 11/18/16 14:00 95 15 118/75 100 Non-Rebreather 100 Height (Feet): 5 Height (Inches): 6.00 Weight (Pounds): 160 General Appearance: no acute distress Respiratory/Chest: decreased breath sounds Cardiovascular: normal rate, regular rhythm Abdomen: normal bowel sounds, soft, non tender, non distended Microbiology Date/Time Source Procedure Growth Status 11/17/16 15:15 Blood Blood Culture - Preliminary NO GROWTH AFTER 24 HOURS Resulted 11/17/16 15:10 Blood Blood Culture - Preliminary NO GROWTH AFTER 24 HOURS Resulted 11/17/16 23:00 Sputum Expectorated Gram Stain - Final Resulted 11/17/16 23:00 Sputum Expectorated Sputum Culture Pending Resulted 11/17/16 23:00 Indwelling Cath Urine Culture - Preliminary NO GROWTH AFTER 24 HOURS Resulted Laboratory Tests Test 11/18/16 13:45 11/19/16 04:10 11/19/16 06:50 11/19/16 07:15 Arterial Blood pH 7.415 (7.350-7.450) 7.407 (7.350-7.450) 7.452 (7.350-7.450) Arterial Blood Partial Pressure CO2 52.7 mmHg (35.0-45.0) H 49.7 mmHg (35.0-45.0) H 49.7 mmHg (35.0-45.0) H Arterial Blood Partial Pressure O2 81.8 mmHg (75.0-100.0) 37.9 mmHg (75.0-100.0) 58.3 mmHg (75.0-100.0) L Arterial Blood HCO3 33.0 mmol/L (22.0-26.0) H 30.6 mmol/L (22.0-26.0) H 33.9 mmol/L (22.0-26.0) H Arterial Blood Oxygen Saturation 95.5 % (92.0-98.0) 0.0 % (92.0-98.0) L 90.3 % (92.0-98.0) L Arterial Blood Base Excess 6.9 4.7 8.5 Bryn Test Positive Positive Positive White Blood Count 23.9 K/UL (4.8-10.8) *H Red Blood Count 4.70 M/UL (4.70-6.10) Hemoglobin 14.4 G/DL (14.2-18.0) Hematocrit 45.6 % (42.0-52.0) Mean Corpuscular Volume 97 FL (80-99) Mean Corpuscular Hemoglobin 30.7 PG (27.0-31.0) Mean Corpuscular Hemoglobin Concent 31.6 G/DL (32.0-36.0) L Red Cell Distribution Width 14.4 % (11.6-14.8) Platelet Count 114 K/UL (150-450) L Mean Platelet Volume 9.6 FL (6.5-10.1) Neutrophils (%) (Auto) % (45.0-75.0) Lymphocytes (%) (Auto) % (20.0-45.0) Monocytes (%) (Auto) % (1.0-10.0) Eosinophils (%) (Auto) % (0.0-3.0) Basophils (%) (Auto) % (0.0-2.0) Differential Total Cells Counted 100 Neutrophils % (Manual) 93 % (45-75) H Lymphocytes % (Manual) 1 % (20-45) L Monocytes % (Manual) 3 % (1-10) Eosinophils % (Manual) 3 % (0-3) Basophils % (Manual) 0 % (0-2) Band Neutrophils 0 % (0-8) Platelet Estimate Decreased L Platelet Morphology Normal Red Blood Cell Morphology Normal Sodium Level 146 mEQ/L (135-145) H Potassium Level 3.9 mEQ/L (3.4-4.9) Chloride Level 102 mEQ/L (98-107) Carbon Dioxide Level 32 mEQ/L (20-30) H Anion Gap 12 (5-15) Blood Urea Nitrogen 32 mg/dL (7-23) H Creatinine 1.0 mg/dL (0.7-1.2) Estimat Glomerular Filtration Rate mL/min (>60) Glucose Level 139 mg/dL (74-106) H Calcium Level 8.7 mg/dL (8.6-10.2) Phosphorus Level 1.6 mg/dL (2.5-4.8) L Magnesium Level 2.2 mg/dL (1.7-2.5) Total Bilirubin 1.3 mg/dL (0.0-1.2) H Direct Bilirubin 0.5 mg/dL (0.1-0.3) H Aspartate Amino Transf (AST/SGOT) 28 U/L (5-40) Alanine Aminotransferase (ALT/SGPT) 18 U/L (3-41) Alkaline Phosphatase 191 U/L (40-129) H Total Protein 6.0 g/dL (6.6-8.7) L Albumin 2.6 g/dL (3.5-5.2) L Globulin 3.4 g/dL Albumin/Globulin Ratio 0.7 (1.0-2.7) L Current Medications Medications (Trade) Dose Ordered Sig/Jackie Route PRN Reason Start Time Stop Time Status Last Admin Dose Admin Albuterol/ Ipratropium (DuoNeb 0.5-3(2.5)mg/3ml) 3 ml Q4H PRN HHN dyspnea 11/19/16 16:00 11/24/16 15:59 UNV Dextrose 1,000 ml @ 100 mls/hr Q10H IV 11/19/16 14:00 12/19/16 13:59 Dextrose (Dextrose 50%) STAT PRN IV Hypoglycemia 11/19/16 22:00 12/19/16 21:59 UNV Heparin Sodium (Porcine) (Heparin 5000 units/ml) 5,000 units EVERY 12 HOURS SUBQ 11/19/16 21:00 12/19/16 20:59 UNV Insulin Aspart (NovoLOG) EVERY 6 HOURS SUBQ 11/19/16 18:00 12/19/16 17:59 UNV Levothyroxine Sodium (Synthroid) 88 mcg DAILY@0630 ORAL 11/20/16 06:30 12/20/16 06:29 UNV Lidocaine (Xylocaine 1% MPF 5ml) 10 ml Q8HRT HHN 11/19/16 15:00 12/19/16 14:59 UNV Lorazepam (Ativan 2mg/ml 1ml) 2 mg Q4H PRN IV For Anxiety 11/19/16 16:15 11/26/16 16:14 UNV Meropenem 1 gm/ Sodium Chloride 110 ml @ 220 mls/hr Q8HR IVPB 11/19/16 14:00 11/24/16 13:59 UNV Morphine Sulfate (Morphine Sulfate) 2 mg Q4H PRN IVP ModeratePain (Pain Scale 7-10) 11/19/16 16:45 11/26/16 16:44 UNV Morphine Sulfate (Morphine Sulfate) 4 mg Q4H PRN IVP For Severe Pain 11/19/16 16:15 11/26/16 16:14 UNV Nitroglycerin (Ntg) 0.4 mg Q5M X 3 DOSES PRN SL Prn Chest Pain 11/19/16 13:30 12/19/16 13:29 UNV Ondansetron HCl (Zofran) 4 mg Q6H PRN IVP Nausea & Vomiting 11/19/16 16:00 12/19/16 15:59 UNV Pantoprazole (Protonix) 40 mg DAILY IV 11/20/16 09:00 12/20/16 08:59 UNV Promethazine HCl/ Codeine (Phenergan with Codeine) 5 ml Q6H PRN ORAL cough 11/19/16 16:00 12/19/16 15:59 UNV Vancomycin HCl (Vanco rx to dose) 1 ea DAILY PRN MISC Per rx protocol 11/20/16 09:00 12/20/16 08:59 UNV Vancomycin HCl/ Dextrose (Vancomycin/D5W) 325 ml @ 162.5 mls/ hr Q24H IVPB 11/19/16 16:00 11/24/16 15:59 UNV JOEL MAURO Nov 19, 2016 13:42
[2016-11-19] MEDS ORDERED: LORazepam Inj 2mg/ml 1ml IV PRN (15:00)
[2016-11-19] MEDS ORDERED: Morphine Sulfate 4mg/ml Inj IVP PRN (15:00)
[2016-11-19] MEDS ORDERED: Morphine Sulfate 2mg/ml Inj IVP PRN (15:00)
[2016-11-19] MEDS ORDERED: Promethazine/Codeine 5ml UD ORAL PRN (15:00)
[2016-11-19] MEDS ORDERED: Lidocaine 1% MPF 10mg/ml 5ml HHN SCH (15:00)
[2016-11-19] MEDS ORDERED: DuoNeb 0.5-3(2.5)mg/3ml neb HHN PRN (16:00)
[2016-11-19] MEDS ORDERED: Vancomycin 1.5 GM in D5W 325 ML IVPB SCH (16:00)
[2016-11-19 16:25] LABS: ABG PCO2 44.7 mmHg (35.0-45.0)
[2016-11-19 16:33] LABS: ABG ALLEN TEST POSITIVE; ABG BASE EXCESS -1.7
[2016-11-19] MEDS ORDERED: NS 275ml ONE ×2 (17:55)
[2016-11-19] MEDS ORDERED: EPINEPHrine 1mg/10ml carp IV ONE (17:55)
[2016-11-19] MEDS ORDERED: Tubing IV Secondary IV ONE ×2 (17:55)
[2016-11-19] MEDS ORDERED: NovoLOG Insulin Flexpen SUBQ SCH (18:00)
[2016-11-19] MEDS ORDERED: Heparin 5000 units/ml inj SUBQ SCH (21:00)
[2016-11-19] MEDS ORDERED: Meropenem 1 GM in NS 110 ML IVPB SCH (22:00)
--- NOTE | 2016-11-20 03:12 | Emergency Room Report ---
Physical Exam Code blue called. Patient bradycardic without pulses. Patient is do no intubate. RT assisting respirations. Last 24 Hour Vital Signs Date Time Temp Pulse Resp B/P Pulse Ox O2 Delivery O2 Flow Rate FiO2 11/19/16 17:22 97.3 11/19/16 16:00 97.3 118 21 137/104 95 11/19/16 15:20 108 26 93 Non-Rebreather 15.0 100 11/19/16 15:15 110 25 94 Non-Rebreather 15.0 100 11/19/16 14:39 97.3 117 110/72 11/19/16 13:00 90 20 123/61 98 Non-Rebreather 100 11/19/16 12:00 90 11/19/16 12:00 98.1 91 18 90/51 98 Non-Rebreather 100 11/19/16 11:00 91 18 110/65 98 Non-Rebreather 100 11/19/16 10:00 98 15 109/71 100 Non-Rebreather 100 11/19/16 09:00 109 16 139/67 93 Non-Rebreather 100 11/19/16 08:00 91 11/19/16 08:00 98.0 128 18 164/80 93 Non-Rebreather 100 11/19/16 07:00 100 17 165/83 93 Non-Rebreather 100 11/19/16 06:30 106 22 92 Non-Rebreather 15.0 100 11/19/16 06:29 104 25 95 Non-Rebreather 15.0 100 11/19/16 06:21 95 Non-Rebreather 15.0 100 11/19/16 06:21 Non-Rebreather 15.0 100 11/19/16 06:21 118 22 Non-Rebreather 15.0 100 11/19/16 06:00 103 17 165/83 93 Non-Rebreather 100 11/19/16 05:00 105 17 162/87 96 Non-Rebreather 100 11/19/16 04:00 105 11/19/16 04:00 98.0 106 17 158/78 96 Non-Rebreather 100 Sp02 EP Interpretation: reviewed, normal General Appearance: other - unresponsive, Chronically Ill ENT: moist mucus membranes Respiratory: lungs clear, other - no respirations without assistance Cardiovascular #1: other - no pulses except CPR Gastrointestinal: abnormal bowel sounds - abscent Musculoskeletal: other - no deform Neurologic: other - flaccid and unresponsive Skin: mottled CPR/Code Blue CPR/Code Blue Narrative Dwayne mayes called at 17:49. CPR supervised by me. Ventilation with BVM. DNI Pulses with CPR. Bradycardia on monitor. EPI 1 amp. Pulses with rate 134. Good femoral pulses. Pulses deteriorated and HR started to slow. Epi repeat. Discussion with family regarding futility of CPR. Decision to stop CPR. Patient in V fib. CPR stopped and patient pronounced at 17:56 - family present. Medical Decision Making Diagnostic Impression: Primary Impression: Chest pain Additional Impressions: Pulmonary fibrosis Cardiopulmonary arrest ER Course Bradycardic arrest. DNI. See code sugey notes. Patient pronounced at 17:56. Rhythm Strip Diag. Results EP Interpretation: yes Rhythm: no PVC's, other - martín, junctional Disposition: Condition: Referrals: NON PHYSICIAN (PCP) Patient Instructions: Pulmonary Fibrosis Roberto Jenkins M.D. Nov 20, 2016 03:12
[2016-11-20] MEDS ORDERED: Pantoprazole Inj IV SCH (09:00)
--- NOTE | 2016-11-20 15:10 | Discharge Summary ---
Discharge Summary Hospital Course Date of Admission Nov 11, 2016 at 00:58 Date of Discharge Nov 19, 2016 at 17:56 Admitting Diagnosis hypoxia, respiratory distress HPI Christiano Matute is a 86 year old male who was admitted on Nov 11, 2016 at 00:58 for Hypoxia,Respiratory Distress Hospital Course [id number] Discharge Discharge Disposition Patient Discharge Diagnoses: Tatyana Maria NP Nov 20, 2016 15:10
--- NOTE | 2016-11-21 01:58 | Discharge Summary 2 SIG ---
DATE OF ADMISSION: 11/11/2016 DATE OF DISCHARGE: 11/19/2016 ROOF FOREMAN: Raj Stuart M.D. BRIEF SUMMARY: The patient is an 86-year-old male with history of pulmonary fibrosis, who was brought in by paramedics secondary to dyspnea and hypoxemia with difficulty breathing. He was recently discharged to a assisted facility for pneumonia and pulmonary fibrosis. On arrival to ED, he was in respiratory failure and needed BiPAP. He was given chest physiotherapy, antibiotics and steroids were continued. Dr. Stuart was consulted. The patient was given empiric Zosyn. Blood culture showed growth of Staphylococcus coagulase-negative bacteremia 3/4. Sputum culture showed normal respiratory vijay. Chest x-ray showed extensive interstitial disease. CT scan done on 11/06/2016 showed bronchiectasis with honeycombing indicative of end-stage interstitial fibrosis. Influenza screens were negative. Urine Legionella was negative. He had an elevated liver transaminases. Hepatitis panel was negative. Ultrasound of the abdomen was negative for gallstones or dilated ducts. He had azotemia secondary to acute tubular necrosis. He was given IV vancomycin and meropenem. On 11/11/2016, Code Blue was called. The patient was bradycardic without pulses. He was do not intubate. Chemical code was done with chest compressions. Resuscitative efforts failed. Per discussion with family regarding futility of CPR, decision was made to stop CPR and the patient eventually . Family were present. FINAL DIAGNOSES: 1. Acute respiratory failure requiring BiPAP. 2. End-stage interstitial pulmonary fibrosis. 3. Coagulase-negative Staphylococcus bacteremia. 4. Acute tubular necrosis. 5. Advanced dementia. 6. Acute chronic obstructive pulmonary disease exacerbation. 7. Elevated liver transaminases. 8. Chronic kidney disease stage 3. Edith Cornelius M.D. I have been assigned to dictate discharge summary on this account and I was not involved in the patient's management. Tatyana Maria N.P. DR: ELVIA JOB#: [id number] CC: ANI
== END 2016-11-19 17:56 | disposition expired | DRG 189 ==
LOC: EDBD 18:14 → EMR 18:55 → 2W 11-11 00:58 → EDBEDREQ 11-11 05:38 → 2W 11-11 14:10 → ICU 11-17 12:33 → 2E 11-19 13:49
PROC: 5A09357 Assistance with Respiratory Ventilation, Less than 24 Consecutive Hours, Continuous Positive Airway Pressure (ICD-10-PCS; principal; 2016-11-11)
PROC: 5A12012 Performance of Cardiac Output, Single, Manual (ICD-10-PCS; 2016-11-19)
DX: J96.00 Acute respiratory failure, unspecified whether with hypoxia or hypercapnia (principal); N17.0 Acute kidney failure with tubular necrosis; J84.9 Interstitial pulmonary disease, unspecified; J44.1 Chronic obstructive pulmonary disease with (acute) exacerbation; B95.7 Other staphylococcus as the cause of diseases classified elsewhere; J84.10 Pulmonary fibrosis, unspecified; J44.9 Chronic obstructive pulmonary disease, unspecified; F03.90 Unspecified dementia, unspecified severity, without behavioral disturbance, psychotic disturbance, mood disturbance, and anxiety; I12.9 Hypertensive chronic kidney disease with stage 1 through stage 4 chronic kidney disease, or unspecified chronic kidney disease; N18.3 Chronic kidney disease, stage 3 (moderate); I71.9 Aortic aneurysm of unspecified site, without rupture; R59.0 Localized enlarged lymph nodes; Z66 Do not resuscitate
CPT/HCPCS: 36415; 36600; 71010; 80053; 80202; 81001; 81003; 82248; 82550; 82553; 82803; 82962; 83605; 83735; 83880; 84100; 84484; 85007; 85025; 87040; 87070; 87081; 87086; 87181; 87205; 93005; 94640; 94664; 94760; J0171; J1815; J2405; J7620; J8499